=== PATIENT | female | born 1955 | race Caucasian/White ===

== ENCOUNTER 2018-07-01 14:39 | Inpatient (IN) | payer OTHER, MEDICARE ==
[2018-07-01 15:27] LABS: ABS Basophils 0.1 10^3/ul (0-0.2); ABS Eosinophils 0.3 10^3/ul (0-0.6); ABS Lymphocytes 1.5 10^3/ul (1.0-4.8); ABS Monocytes 0.6 10^3/ul (0-0.8); ABS Neutrophils 5.3 10^3/ul (1.5-7.7); ABS Nucleated RBC 0 10^3/ul; Eosinophil % 3.6 % (0-6); Hematocrit 39 % (35-47); Hemoglobin 13.1 g/dl (12.0-16.0); Lymphocyte % 19.3 % (25-47); Mean Corpuscular HGB Conc 34 g/dl (31-36); Mean Corpuscular Hemoglobin 30 pg (27-31); Mean Corpuscular Volume 89 fL (80-97); Mean Platelet Volume 7.9 um3 (7.4-10.4); Nucleated Red Blood Cells % 0; Platelet Count 443 10^3/ul (150-450); Red Blood Count 4.38 10^6/ul (4.00-5.40); Red Cell Distribution Width 15 % (10.5-15); White Blood Count 7.9 10^3/ul (3.5-10.8)
[2018-07-01] MEDS ORDERED: NS 0.9% 1000 ML* 2,000 ML IV ONE (16:01)
[2018-07-01 16:02] LABS: EGFR Non-African American 37.2 (>60)
[2018-07-01] MEDS ORDERED: Insulin REGULAR(*) 1 UNITS UNIT IV PUSH ONE (16:02)
[2018-07-01 16:34] LABS: Urine Appearance Clear; Urine Blood 1+ (Negative); Urine Color Straw; Urine Ketones Negative (Negative); Urine Protein Negative (Negative); Urine Red Blood Cell 1+(3-5/hpf) (Absent); Urine Specific Gravity 1.014 (1.010-1.030); Urine Urobilinogen Negative (Negative); Urine White Blood Cell 1+(6-10/hpf) (Absent)
--- NOTE | 2018-07-01 16:39 | ED ---
Abdominal Pain/Female - HPI Summary HPI Summary: This is dorotae Joo Daly documenting for attending Ermias Medina MD. This patient is a 63 year old F presenting to ED with a chief complaint of high glucose levels since yesterday. She forgot to take her insulin yesterday but took it today. She found her glucose to be over 600. The patient rates the pain 4/10 in severity. Symptoms aggravated by nothing. Symptoms alleviated by nothing. Patient reports dehydration and non-productive cough. Patient denies increased appetite, CP, SOB, diarrhea, and constipation. She also thinks she has a yeast infection. The patient takes Lantus (her doctor changed it from 100 units to 60) and 20 units humalog BID. She had a hysterectomy done in [place] and is on Keflex. - History of Current Complaint Chief Complaint: EDDiabeticProb Stated Complaint: HIGH SUGAR/DIZZINESS Time Seen by Provider: 07/01/18 15:37 Hx Obtained From: Patient Onset/Duration: Sudden Onset, Lasting Days, Still Present Timing: Constant Severity Initially: Moderate Severity Currently: Mild Pain Intensity: 4 Pain Scale Used: 0-10 Numeric Aggravating Factor(s): Nothing Alleviating Factor(s): Nothing Associated Signs and Symptoms: Positive: Negative - SOB, diarrhea, Cough - non- productive, Other: - dehydration. Negative: Chest Pain, Constipation, Decreased Appetite Allergies/Adverse Reactions: Allergies Allergy/AdvReac Type Severity Reaction Status Date / Time No Known Allergies Allergy Verified 11/11/15 13:31 PMH/Surg Hx/FS Hx/Imm Hx Endocrine/Hematology History: Reports: Hx Diabetes Denies: Hx Systemic Lupus Erythematosus, Hx Anemia Cardiovascular History: Reports: Hx Hypercholesterolemia, Hx Hypertension, Other Cardiovascular Problems/Disorders - hx stroke Denies: Hx Congestive Heart Failure, Hx Pacemaker/ICD Respiratory History: Reports: Hx Asthma, Hx Chronic Obstructive Pulmonary Disease (COPD), Hx Pneumonia, Other Respiratory Problems/Disorders - Hx of smoking GI History: Reports: Hx Gastroesophageal Reflux Disease Denies: Hx Jaundice History: Denies: Hx Dialysis, Hx Renal Disease Musculoskeletal History: Denies: Hx Rheumatoid Arthritis Sensory History: Reports: Hx Contacts or Glasses - glasses for driving Denies: Hx Hearing Aid Comment Only: 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 X 2 C SECTIONS; lower lumbar 2001 Hx Anesthesia Reactions: No Infectious Disease History: No Infectious Disease History: Reports: Hx of Known/Suspected MRSA Denies: Hx Clostridium Difficile, Hx Hepatitis, Hx Human Immunodeficiency Virus (HIV), Hx Shingles, Hx Tuberculosis, Hx Known/Suspected VRE, Hx Known/ Suspected VRSA, History Other Infectious Disease, Traveled Outside the [place] in Last 30 Days - Family History Known Family History: Positive: Other - reviewed and N/C Negative: Renal Disease - Social History Occupation: Employed Full-time Lives: With Family Alcohol Use: None Substance Use Type: Reports: None Smoking Status (MU): Former Smoker Type: Cigarettes Have You Smoked in the Last Year: No Review of Systems Positive: Other - Positive: dehydration Negative: increased appetite Negative: Chest Pain Positive: Cough - non-productive. Negative: Shortness Of Breath Negative: Diarrhea All Other Systems Reviewed And Are Negative: Yes Physical Exam - Summary Physical Exam Summary: VITAL SIGNS: Reviewed. GENERAL: Patient is a well-developed and nourished elderly female who is lying comfortable in the stretcher. Patient is not in any acute respiratory distress. HEAD AND FACE: Normocephalic and atraumatic. EYES: PERRLA, EOMI x 2, No injected conjunctiva. EARS: Hearing grossly intact. Ear canals and tympanic membranes are WNL. MOUTH: Oropharynx within normal limits. Dry oral mucosa NECK: Supple, trachea is midline, no adenopathy, no JVD. CHEST: Symmetric, no tenderness at palpation LUNGS: Clear to auscultation bilaterally. No wheezing or crackles. CVS: RRR, S1 and S2 present, no murmurs or gallops appreciated. ABDOMEN: Soft, non-tender. No signs of distention. Positive bowel sounds. No rebound no guarding, and no masses palpated. No abdominal bruit or pulsations. Has wound bag in lower abdomen. EXTREMITIES: FROM in all major joints, no edema, no cyanosis or clubbing. NEURO: Alert and oriented x 3. No acute neurological deficits. Speech is normal. SKIN: Increased turgor in skin Triage Information Reviewed: Yes Vital Signs On Initial Exam: Initial Vitals Temp Pulse Resp BP Pulse Ox 97.1 F 90 18 154/74 97 07/01/18 14:40 07/01/18 14:40 07/01/18 14:40 07/01/18 14:40 07/01/18 14:40 Vital Signs Reviewed: Yes Diagnostics - Vital Signs Vital Signs Temp Pulse Resp BP Pulse Ox 07/01/18 14:40 97.1 F 90 18 154/74 97 - Laboratory Lab Results: Lab Results 07/01/18 07/01/18 07/01/18 Range/Units 14:49 15:16 15:16 WBC 7.9 (3.5-10.8) 10^3/ul RBC 4.38 (4.00-5.40) 10^6/ul Hgb 13.1 (12.0-16.0) g/dl Hct 39 (35-47) % MCV 89 (80-97) fL MCH 30 (27-31) pg MCHC 34 (31-36) g/dl RDW 15 (10.5-15) % Plt Count 443 (150-450) 10^3/ul MPV 7.9 (7.4-10.4) um3 Neut % (Auto) 67.9 (38-83) % Lymph % (Auto) 19.3 L (25-47) % Cache % (Auto) 8.0 H (0-7) % Eos % (Auto) 3.6 (0-6) % Baso % (Auto) 1.2 (0-2) % Absolute Neuts (auto) 5.3 (1.5-7.7) 10^3/ul Absolute Lymphs (auto) 1.5 (1.0-4.8) 10^3/ul Absolute Monos (auto) 0.6 (0-0.8) 10^3/ul Absolute Eos (auto) 0.3 (0-0.6) 10^3/ul Absolute Basos (auto) 0.1 (0-0.2) 10^3/ul Absolute Nucleated RBC 0 10^3/ul Nucleated RBC % 0 Sodium 126 L (135-145) mmol/L Potassium 4.0 (3.5-5.0) mmol/L Chloride 87 L (101-111) mmol/L Carbon Dioxide 25 (22-32) mmol/L Anion Gap 14 H (2-11) mmol/L BUN 33 H (6-24) mg/dL Creatinine 1.43 H (0.51-0.95) mg/dL Est GFR ( Amer) 45.0 (>60) Est GFR (Non-Af Amer) 37.2 (>60) BUN/Creatinine Ratio 23.1 H (8-20) Glucose 621 H* (70-100) mg/dL POC Glucose (mg/dL) > 444 H* (70-100) mg/dL Lactic Acid (0.5-2.0) mmol/L Calcium 9.8 (8.6-10.3) mg/dL Total Bilirubin 2.40 H (0.2-1.0) mg/dL AST 14 (13-39) U/L ALT 13 (7-52) U/L Alkaline Phosphatase 172 H (34-104) U/L Troponin I 0.01 (<0.04) ng/mL C-Reactive Protein 89.84 H (<8.01) mg/L Total Protein 8.3 (6.4-8.9) g/dL Albumin 4.0 (3.2-5.2) g/dL Globulin 4.3 H (2-4) g/dL Albumin/Globulin Ratio 0.9 L (1-3) 07/01/18 Range/Units 15:16 WBC (3.5-10.8) 10^3/ul RBC (4.00-5.40) 10^6/ul Hgb (12.0-16.0) g/dl Hct (35-47) % MCV (80-97) fL MCH (27-31) pg MCHC (31-36) g/dl RDW (10.5-15) % Plt Count (150-450) 10^3/ul MPV (7.4-10.4) um3 Neut % (Auto) (38-83) % Lymph % (Auto) (25-47) % Cache % (Auto) (0-7) % Eos % (Auto) (0-6) % Baso % (Auto) (0-2) % Absolute Neuts (auto) (1.5-7.7) 10^3/ul Absolute Lymphs (auto) (1.0-4.8) 10^3/ul Absolute Monos (auto) (0-0.8) 10^3/ul Absolute Eos (auto) (0-0.6) 10^3/ul Absolute Basos (auto) (0-0.2) 10^3/ul Absolute Nucleated RBC 10^3/ul Nucleated RBC % Sodium (135-145) mmol/L Potassium (3.5-5.0) mmol/L Chloride (101-111) mmol/L Carbon Dioxide (22-32) mmol/L Anion Gap (2-11) mmol/L BUN (6-24) mg/dL Creatinine (0.51-0.95) mg/dL Est GFR ( Amer) (>60) Est GFR (Non-Af Amer) (>60) BUN/Creatinine Ratio (8-20) Glucose (70-100) mg/dL POC Glucose (mg/dL) (70-100) mg/dL Lactic Acid 2.4 H* (0.5-2.0) mmol/L Calcium (8.6-10.3) mg/dL Total Bilirubin (0.2-1.0) mg/dL AST (13-39) U/L ALT (7-52) U/L Alkaline Phosphatase (34-104) U/L Troponin I (<0.04) ng/mL C-Reactive Protein (<8.01) mg/L Total Protein (6.4-8.9) g/dL Albumin (3.2-5.2) g/dL Globulin (2-4) g/dL Albumin/Globulin Ratio (1-3) Result Diagrams: 07/01/18 15:16 07/01/18 15:16 Lab Statement: Any lab studies that have been ordered have been reviewed, and results considered in the medical decision making process. - EKG 1540 Cardiac Rate: NL - 87 bpm EKG Interpretation: Sinus [address] elevations. T wave inversions in I, II, III, aVF, V4-V6 Abdominal Pain Fem Course/Dx - Course Course Of Treatment: This patient is a 63 year old F presenting to ED with a chief complaint of high glucose levels since yesterday. She forgot to take her insulin yesterday but took it today. She found her glucose to be over 600. The patient rates the pain 4/10 in severity. Symptoms aggravated by nothing. Symptoms alleviated by nothing. Patient reports dehydration and non-productive cough. Patient denies increased appetite, CP, SOB, diarrhea, and constipation. She also thinks she has a yeast infection. The patient takes Lantus (her doctor changed it from 100 units to 60) and 20 units humalog BID. She had a hysterectomy done in [place] and is on Keflex. Blood test results shows a sodium 126, anion gap is 14 carbon dioxide is 25 by mouth in a steady 3 creatinine is 1.43. Glucose is 621 and lactic acid is 2.4. Total bili 2.4 CRP of 89, urinalysis is contaminated therefore we will send the urine for cultures. In the ER course the patient was given 2 L of IV fluids, insulin, and she was placed in an insulin drip. At this time I discussed my physical exam, findings and test results with Dr. Mack from the hospitalist services was accepted the patient for admission. The patient is hemodynamically stable alert and oriented 3. - Diagnoses Differential Diagnosis: Positive: Other - Hyperglycemia, DKA, hyperglycemic nonketotic osmolar syndrome, uncontrolled diabetes Provider Diagnoses: Type 2 diabetes mellitus with hyperosmolar nonketotic hyperglycemia Discharge - Sign-Out/Discharge Documenting (check all that apply): Patient Departure - Discharge Plan Condition: Stable Disposition: ADMITTED TO [facility] Referrals: Aki Briggs MD [Primary Care Provider] - - Billing Disposition and Condition Condition: STABLE Disposition: Admitted to [facility]
[2018-07-01] MEDS ORDERED: Insulin IVPB 100 units/100 ml 100 UNITS/100 ML UNIT IVPB ONE (17:12)
[2018-07-01] MEDS ORDERED: Al Hydrox/Mg Hydrox/Simet LIQ* 30 ML UDC PO PRN (18:34)
[2018-07-01] MEDS ORDERED: NS 0.9% 1000 ML* 1,000 ML IV SCH (18:45)
[2018-07-01] MEDS ORDERED: Mometasone/Formoter 100/5 MDI INH PRN (18:47)
[2018-07-01] MEDS ORDERED: Omeprazole CAP* 20 MG PO PRN (18:47)
[2018-07-01] MEDS ORDERED: Dextrose 50% Syringe 50 ML* 25 GM/50 ML SYRINGE IV PUSH PRN ×2 (18:49→18:57)
[2018-07-01] MEDS ORDERED: Insulin LISPRO* 1 UNITS UNIT SUBCUT SCH (21:00)
[2018-07-01 21:39] LABS: Urine Appearance Clear; Urine Blood Negative (Negative); Urine Color Yellow; Urine Ketones Negative (Negative); Urine Protein Negative (Negative); Urine Specific Gravity 1.014 (1.010-1.030); Urine Urobilinogen Negative (Negative)
[2018-07-01] MEDS: Ramipril CAP* 10 MG PO SCH (22:49)
[2018-07-01] MEDS: Docusate CAP* 100 MG PO SCH (22:49)
--- NOTE | 2018-07-01 22:50 | HP ---
ADMISSION HISTORY AND PHYSICAL: DATE OF ADMISSION: 07/01/18 CHIEF COMPLAINT: High blood sugars checked by visiting nurse. 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 She mentions that she was in her usual state of health until 2 days prior to admission when she started having some headaches and felt a bit nauseated. She mentions that about a week prior to admission, she has not been compliant with her fingerstick check and mention that she forgot her Lasix dose the night before. When her visiting nurse came, unfortunately her fingersticks were above the scale that can be read by the glucometer and given her other symptoms such as headache and nausea, she was advised to go to the ER for further evaluation, upon which she was found to have glucose of 621, but with an anion gap of 14. She was initially placed on insulin drip which was subsequently transitioned to subcu insulin upon hydration. She was also found to be mildly hyponatremic at 126. PAST MEDICAL AND SURGICAL HISTORY: 1. Diabetes mellitus. 2. CVA. 3. Hypertension. 4. COPD. 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 7. 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 8. Status post lumbar surgery. 9. x2. ALLERGIES: NKDA. FAMILY HISTORY: Reviewed. No family history of renal disease. SOCIAL HISTORY: The patient is a former smoker with a [id number] history. No alcohol, no recreational drug use. She is . Lives alone. 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 She is full code. REVIEW OF SYSTEMS: On review of systems, she complained of some intermittent headaches for the past 2 days, some nausea. Denied any fevers, chills, vomiting , abdominal pain, diarrhea, constipation, pain, and/or increased frequency on urination, myalgias, arthralgias, throat pain, or new skin lesions. The rest of the 14-point review of systems are otherwise unremarkable. PHYSICAL EXAMINATION GENERAL APPEARANCE: The patient is awake, alert, and oriented x3, not in acute distress, obese body habitus. VITAL SIGNS: Reveals the most recent vital signs of records with blood pressure of 135/67, saturating at 95% room air, 70 beats per minute heart rate, 97.1 degrees Fahrenheit temperature. HEENT: Normocephalic, atraumatic. PERRLA. Extraocular muscles intact. Negative for icterus. Moist oral mucosa. Negative throat erythema. CHEST: Clear to auscultation bilaterally. Good air entry. No wheezes, rales, and rhonchi. HEART: S1, S2, within normal limits. Regular rate and rhythm. No murmurs, rubs, and gallops. ABDOMEN: Soft, nondistended, nontender. Normoactive bowel sounds x4 quadrants. EXTREMITIES: No cyanosis, clubbing. Difficult to assess edema given obese body habitus. PSYCHIATRIC: No active psychosis, depression, suicidal, or homicidal ideation. SKIN: Warm to touch. LABORATORY DATA/DIAGNOSTIC STUDIES: Most recent and pertinent laboratories show normal CBC values with WBC, H and H, and platelets. Sodium of 126. BUN and creatinine seems to be at baseline from previous. An EKG with possible T- wave inversion in V5 to V6, although the patient does not complain of any chest pain nor shortness of breath. However, the patient has not been hospitalized in our facility for 3 years. ASSESSMENT AND PLAN: As follows: 1. Hyperglycemia. We will discontinue insulin drip and will place the patient on her regular insulin regimen with backup sliding scale as ordered. We will continue watchful waiting. We will check HbA1c in a.m. 2. Hyponatremia, likely secondary to mild hypovolemia. We will continue normal saline infusion and we will recheck sodium levels in a few hours at 2200. 3. Hypertension, well controlled. Continue Ramipril. 4. Abdominal post surgical wound, status post KIM-BSO. We will ask for wound care consult given the patient has wound VAC. 6. Possible T-wave inversion, unclear whether it is new or not. However, the patient does not complain of any chest pain or shortness of breath. We will trend cardiac enzymes. 7. DVT prophylaxis. We will place the patient on Lovenox. 8. Disposition. As above. 9. Urinalysis. The patient does not complain of any changes in urination, but we will ask nursing staff to do a straight cath and we will redraw urine. [id number]/[facility] #: [id number] GARRY
[2018-07-01] MEDS: Insulin GLARGINE(*) 1 UNITS UNIT SUBCUT SCH (23:20)
[2018-07-02] MEDS ORDERED: NS 0.9% 1000 ML* 1,000 ML IV SCH (01:18)
[2018-07-02] MEDS ORDERED: NS 0.9% 1000 ML* 1,000 ML IV ONE (01:19)
[2018-07-02] MEDS ORDERED: Insulin LISPRO* 1 UNITS UNIT SUBCUT ONE ×3 (01:20→20:58)
[2018-07-02] MEDS ORDERED: Dextrose 50% Syringe 50 ML* 25 GM/50 ML SYRINGE IV PUSH PRN ×3 (03:09→20:58)
[2018-07-02] MEDS ORDERED: Ondansetron INJ* 2 MG/ML VIAL IV ONE (03:28)
[2018-07-02] MEDS ORDERED: Insulin LISPRO* 1 UNITS UNIT SUBCUT SCH (07:30)
[2018-07-02 08:48] LABS: EGFR Non-African American 54.3 (>60)
[2018-07-02 09:02] LABS: ABS Basophils 0.1 10^3/ul (0-0.2); ABS Eosinophils 0.5 10^3/ul (0-0.6); ABS Lymphocytes 1.4 10^3/ul (1.0-4.8); ABS Monocytes 0.9 10^3/ul (0-0.8); ABS Neutrophils 4.7 10^3/ul (1.5-7.7); ABS Nucleated RBC 0 10^3/ul; Hematocrit 35 % (35-47); Hemoglobin 11.8 g/dl (12.0-16.0); Lymphocyte % 18.1 % (25-47); Mean Corpuscular HGB Conc 34 g/dl (31-36); Mean Corpuscular Hemoglobin 30 pg (27-31); Mean Corpuscular Volume 87 fL (80-97); Mean Platelet Volume 8.6 um3 (7.4-10.4); Nucleated Red Blood Cells % 0.1; Platelet Count 386 10^3/ul (150-450); Red Cell Distribution Width 15 % (10.5-15); White Blood Count 7.6 10^3/ul (3.5-10.8)
[2018-07-02] MEDS: Docusate CAP* 100 MG PO SCH ×2 (09:31→20:05)
[2018-07-02] MEDS: Aspirin EC TAB* 81 MG TAB.EC PO SCH (09:31)
[2018-07-02] MEDS: Insulin LISPRO* 1 UNITS UNIT SUBCUT SCH ×6 (09:32→17:42)
[2018-07-02] MEDS: Insulin GLARGINE(*) 1 UNITS UNIT SUBCUT SCH (09:33)
[2018-07-02] MEDS: Acetaminophen TAB* 325 MG PO PRN ×2 (11:18→20:04)
[2018-07-02] MEDS ORDERED: Insulin GLARGINE(*) 1 UNITS UNIT SUBCUT SCH (14:17)
[2018-07-02] MEDS ORDERED: Ondansetron INJ* 2 MG/ML VIAL IV PRN (14:30)
[2018-07-02] MEDS: Atorvastatin* 40 MG TAB PO SCH (17:43)
[2018-07-02] MEDS: Cephalexin CAP* 250 MG PO SCH ×2 (17:43→20:04)
--- NOTE | 2018-07-02 17:57 | RAD ---
INDICATION: Diarrhea and bilious vomiting COMPARISON: None TECHNIQUE: Supine and upright views of the abdomen were obtained. FINDINGS: The small bowel and colon appear nondistended. No free intraperitoneal air is seen. No grossly abnormal or pathologic appearing calcifications are noted. Visualized bones are within normal limits for the patient's age. IMPRESSION: Normal abdominal radiograph.
--- NOTE | 2018-07-02 18:00 | PN ---
Subjective Date of Service: 07/02/18 Interval History: Patient having F/C overnight and was having this at home before admission. Recently stopped keflex for post-op incision infection. Was on for 3 weeks. Recently had lantus decreased from 100u daily to 60u daily when seeing stock analyst. Had episode of diarrhea and bilious vomiting today which resolved with zofran. Has been feeling "foggy" mentally for several days which is improving. Persistent, stable pain at incision. Denies CP, SOB, Dysuria, dizziness, or other pain. Family History: Unchanged from Admission Social History: Unchanged from Admission Past Medical History: Unchanged from Admission Objective Active Medications: Acetaminophen (Tylenol Tab*) 650 mg PO Q6H PRN PRN Reason: PAIN Last Admin: 07/02/18 11:18 Dose: 650 mg Al Hydrox/Mg Hydrox/Simethicone (Maalox Plus*) 30 ml PO Q6H PRN PRN Reason: INDIGESTION Albuterol (Ventolin Hfa Inhaler*) 2 puff INH Q4H PRN PRN Reason: SHORTNESS OF BREATH Aspirin (Aspirin Ec Tab*) 81 mg PO DAILY [facility] Last Admin: 07/02/18 09:31 Dose: 81 mg Atorvastatin Calcium (Lipitor*) 40 mg PO 1700 [facility] Last Admin: 07/02/18 17:43 Dose: 40 mg Cephalexin HCl (Keflex Cap*) 250 mg PO QID [facility] Last Admin: 07/02/18 17:43 Dose: 250 mg Dextrose (D50w Syringe 50 Ml*) 12.5 gm IV PUSH .FOR FS < 60 - SS PRN PRN Reason: FS < 60 Docusate Sodium (Colace Cap*) 100 mg PO BID [facility] Last Admin: 07/02/18 09:31 Dose: 100 mg Doxycycline Hyclate (Vibramycin Cap(*)) 100 mg PO BID [facility] Sodium Chloride (Ns 0.9% 1000 Ml*) 1,000 mls @ 150 mls/hr IV PER RATE [facility] Last Admin: 07/02/18 15:06 Dose: 150 mls/hr Insulin Glargine (Lantus(*)) 30 units SUBCUT Q12H [facility] Last Admin: 07/02/18 15:03 Dose: 30 units Insulin Human Lispro (Humalog*) 0 units SUBCUT [facility]; Protocol Last Admin: 07/02/18 17:41 Dose: 12 units Insulin Human Lispro (Humalog*) 0 units SUBCUT AC [facility]; Protocol Last Admin: 07/02/18 17:42 Dose: 3 units Mometasone Furoate/Formoterol Fumar (Dulera 100/5 Mdi*) 2 puff INH BID PRN PRN Reason: SHORTNESS OF BREATH Omeprazole (Prilosec Cap*) 20 mg PO DAILY PRN PRN Reason: INDIGESTION Ondansetron HCl (Zofran Inj*) 4 mg IV Q6H PRN PRN Reason: NAUSEA Last Admin: 07/02/18 15:03 Dose: 4 mg Ramipril (Altace Cap*) 10 mg PO BEDTIME OF[facility] Last Admin: 07/01/18 22:49 Dose: 10 mg Vital Signs - 8 hr 07/02/18 07/02/18 11:27 15:13 Temperature 98.5 F 97.8 F Pulse Rate 85 84 Respiratory 16 20 Rate Blood Pressure 132/47 132/44 (mmHg) O2 Sat by Pulse 96 97 Oximetry Oxygen Devices in Use Now: None Appearance: Patient is an obese 63yo female who appears stated age and is sitting in the bed in [facility]. Eyes: No Scleral Icterus, PERRLA Ears/Nose/Mouth/Throat: NL Teeth, Lips, Gums, Clear Oropharnyx, Mucous Membranes Moist Neck: NL Appearance and Movements; NL JVP, Trachea Midline Respiratory: Symmetrical Chest Expansion and Respiratory Effort, Clear to Auscultation Cardiovascular: NL Sounds; No Murmurs; No JVD, RRR, No Edema Abdominal: NL Sounds; No Tenderness; No Distention, No Hepatosplenomegaly, - - Midline incision with small open area at the top with drainage and vound vac covering lower portion. Obese Lymphatic: No Cervical Adenopathy Extremities: No Edema, No Clubbing, Cyanosis Skin: No Rash or Ulcers, No Nodules or Sclerosis Neurological: Alert and Oriented x 3, NL Sensation, NL Muscle Strength and Tone , - - CN II-XII intact. Result Diagrams: 07/02/18 07:50 07/02/18 07:55 Additional Lab and Data: Lab Results Microbiology and Other Data: Microbiology 07/02/18 10:30 Skin and Soft Tissue MRSA/MSSA (PCR - Final Abdomen Mrsa Negative S.aureus Negative Gram Stain - Final 07/01/18 19:45 Nasal Screen MRSA (PCR) - Final Nasal Mrsa Not Detected Assess/Plan/Problems-Billing Assessment: Patient is a 63yo female with a PMH for DM II, COPD, HTN, here with HHS which is improving with insulin and fluids who is 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 - Patient Problems (1) Diabetes mellitus type 2 Current Visit: No Status: Chronic Priority: Medium Code(s): E11.9 - TYPE 2 DIABETES MELLITUS WITHOUT COMPLICATIONS SNOMED Code(s): 49364262 Comment: Increase insulin to 20u BID. This is the home dose according to patient. SSI as well. Patient had HHS and is being treated with aggressive fluids and insulin. Poor oral intake. Monitor for hypoglycemia. Follow with endocrinology outpatient. Hemogobin a1c 10.5. May be candidate for insulin pump. (2) Wound dehiscence Current Visit: Yes Status: Acute Code(s): T81.30XA - DISRUPTION OF WOUND, UNSPECIFIED, INITIAL ENCOUNTER SNOMED Code(s): 572451869 Comment: Abdominal surgery for removal of mullerian tumor. With wound vac and signs of infection. Abdominal XR shows no signs of SubQ air. No increased pain. Recently treated with keflex which was stopped soon before patient became symptomatic and had elevated blood sugars. Poor self care at home. Continue wound vac. Wound culture pending. Continue Doxycycline and Keflex. (3) CVA (cerebral vascular accident) Current Visit: No Status: Acute Priority: High Onset Date: 02/05/15 Code (s): I63.9 - CEREBRAL INFARCTION, UNSPECIFIED SNOMED Code(s): 516192463 Comment: Minor residual deficits. (4) Chronic obstructive lung disease Current Visit: No Status: Chronic Priority: Low Code(s): J44.9 - CHRONIC OBSTRUCTIVE PULMONARY DISEASE, UNSPECIFIED SNOMED Code(s): 61630721 Comment: Asymptomatic. Continue inhalers. (5) Essential hypertension Current Visit: No Status: Chronic Priority: Low Code(s): I10 - ESSENTIAL ( PRIMARY) HYPERTENSION SNOMED Code(s): 63295946 Comment: Normotensive. (6) Obesity Current Visit: No Status: Chronic Priority: Low Code(s): E66.9 - OBESITY, UNSPECIFIED SNOMED Code(s): 995592768 Comment: Cound be contributing to wound dehiscence risk and worsening diabetic control. Would recommend [facility] follow up with a goal of weight loss. (7) DVT prophylaxis Current Visit: No Status: Acute Priority: High Onset Date: 02/09/15 Code (s): VGB1732 - SNOMED Code(s): 613550098 Comment: SQ hep Status and Disposition: Inpatient.
[2018-07-02] MEDS: NS 0.9% 1000 ML* 1,000 ML IV SCH (19:00)
[2018-07-02] MEDS: DOXYcycline CAP(*) 100 MG PO SCH (20:05)
[2018-07-02] MEDS: Ramipril CAP* 10 MG PO SCH (20:05)
--- NOTE | 2018-07-02 20:59 | PN ---
Progress Note - Progress Note Date of Service: 07/02/18 Note: Patient continues to have elevated blood sugars. Will increase Lantus AM dose and give lispro now.
[2018-07-03] MEDS: Acetaminophen TAB* 325 MG PO PRN ×3 (03:24→18:11)
[2018-07-03 05:59] LABS: ABS Basophils 0.1 10^3/ul (0-0.2); ABS Eosinophils 0.6 10^3/ul (0-0.6); ABS Lymphocytes 1.5 10^3/ul (1.0-4.8); ABS Monocytes 0.8 10^3/ul (0-0.8); ABS Neutrophils 4.6 10^3/ul (1.5-7.7); ABS Nucleated RBC 0 10^3/ul; Eosinophil % 7.6 % (0-6); Hematocrit 34 % (35-47); Hemoglobin 11.6 g/dl (12.0-16.0); Lymphocyte % 19.8 % (25-47); Mean Corpuscular HGB Conc 34 g/dl (31-36); Mean Corpuscular Hemoglobin 30 pg (27-31); Mean Corpuscular Volume 88 fL (80-97); Nucleated Red Blood Cells % 0.1; Platelet Count 371 10^3/ul (150-450); Red Blood Count 3.93 10^6/ul (4.00-5.40); Red Cell Distribution Width 15 % (10.5-15); White Blood Count 7.6 10^3/ul (3.5-10.8)
[2018-07-03 06:15] LABS: EGFR Non-African American 60.3 (>60)
[2018-07-03] MEDS ORDERED: Insulin GLARGINE(*) 1 UNITS UNIT SUBCUT SCH (09:00)
[2018-07-03] MEDS: DOXYcycline CAP(*) 100 MG PO SCH ×2 (09:22→21:09)
[2018-07-03] MEDS: Aspirin EC TAB* 81 MG TAB.EC PO SCH (09:22)
[2018-07-03] MEDS: Cephalexin CAP* 250 MG PO SCH ×4 (09:22→21:09)
[2018-07-03] MEDS: Insulin LISPRO* 1 UNITS UNIT SUBCUT SCH ×6 (09:23→17:50)
[2018-07-03] MEDS: Insulin GLARGINE(*) 1 UNITS UNIT SUBCUT SCH ×2 (09:24→21:31)
[2018-07-03] MEDS: Docusate CAP* 100 MG PO SCH ×2 (09:45→21:10)
[2018-07-03] MEDS: NS 0.9% 1000 ML* 1,000 ML IV SCH ×2 (09:46→23:48)
--- NOTE | 2018-07-03 12:02 | RAD ---
CLINICAL HISTORY: R/O Abscess, status post hysterectomy COMPARISON: October 30, 2015 TECHNIQUE: Multiple contiguous axial CT scans were obtained of the abdomen and pelvis, without intravenous contrast enhancement. Coronal and sagittal multiplanar reformations are submitted for review. Oral contrast was not administered. FINDINGS: The study is limited by the lack of intravenous contrast. This limits evaluation of the solid organs and vasculature. Evaluation is also limited by the lack of oral contrast which limits the sensitivity for abscesses in the peritoneal cavity. LUNG BASES: There are small bilateral pleural effusions. LIVER: The liver is normal in shape, size, contour, and attenuation. BILE DUCTS: There is no intrahepatic or extrahepatic biliary dilatation. GALLBLADDER: The gallbladder is normal, without pericholecystic inflammatory change. PANCREAS: The pancreas is normal, without mass or ductal dilatation. SPLEEN: Normal in size and appearance. UPPER GI TRACT: Evaluation of the gastrointestinal tract is limited by incomplete gastric distention. The upper GI tract is unremarkable. SMALL BOWEL AND MESENTERY: The small bowel is normal in contour, course, and caliber. There is no obstruction or dilatation. COLON: The colon is normal in contour, course, caliber. There is no pericolonic inflammatory change. ADRENALS: Normal bilaterally. KIDNEYS: The kidneys are normal in shape, size, contour, and axis. There is no hydronephrosis or nephrolithiasis. BLADDER: The bladder is incompletely distended but is grossly normal. PELVIC ORGANS: The pelvic organs are not visualized. AORTA: There is calcific atherosclerotic disease of the abdominal aorta and its branches, without aneurysmal dilatation IVC: Unremarkable LYMPH NODES: There is no lymphadenopathy by size criteria. ABDOMINAL WALL: There is postsurgical change to the anterior abdominal wall, without loculated fluid collection. There is stranding of the subcutaneous fat along the anterior abdominal wall with gas along the surgical incision line. BONES AND SOFT TISSUES: Degenerative changes are noted most pronounced at L4-L5. OTHER: None IMPRESSION: 1. POSTSURGICAL CHANGE OF THE ANTERIOR ABDOMINAL WALL WITHOUT LOCULATED FLUID COLLECTION TO SUGGEST ABSCESS. 2. ATHEROSCLEROSIS. 3. SMALL BILATERAL PLEURAL EFFUSIONS.
--- NOTE | 2018-07-03 16:41 | PN ---
Subjective Date of Service: 07/03/18 Interval History: Patient fells much better today with more energy and less pain in abdomen. Denies CP, SOB, N/V, dysuria, F/C, dizziness on standing, palpitations, or other pain. States sister has been staying with her since she has had surgery and will able to be available after discharge. Family History: Unchanged from Admission Social History: Unchanged from Admission Past Medical History: Unchanged from Admission Objective Active Medications: Acetaminophen (Tylenol Tab*) 650 mg PO Q6H PRN PRN Reason: PAIN Last Admin: 07/03/18 09:36 Dose: 650 mg Al Hydrox/Mg Hydrox/Simethicone (Maalox Plus*) 30 ml PO Q6H PRN PRN Reason: INDIGESTION Albuterol (Ventolin Hfa Inhaler*) 2 puff INH Q4H PRN PRN Reason: SHORTNESS OF BREATH Aspirin (Aspirin Ec Tab*) 81 mg PO DAILY [facility] Last Admin: 07/03/18 09:22 Dose: 81 mg Atorvastatin Calcium (Lipitor*) 40 mg PO 1700 [facility] Last Admin: 07/02/18 17:43 Dose: 40 mg Cephalexin HCl (Keflex Cap*) 250 mg PO QID [facility] Last Admin: 07/03/18 13:48 Dose: 250 mg Dextrose (D50w Syringe 50 Ml*) 12.5 gm IV PUSH .FOR FS < 60 - SS PRN PRN Reason: FS < 60 Dextrose (D50w Syringe 50 Ml*) 12.5 gm IV PUSH .FOR FS < 60 - SS PRN PRN Reason: FS < 60 Docusate Sodium (Colace Cap*) 100 mg PO BID [facility] Last Admin: 07/03/18 09:45 Dose: Not Given Doxycycline Hyclate (Vibramycin Cap(*)) 100 mg PO BID [facility] Last Admin: 07/03/18 09:22 Dose: 100 mg Sodium Chloride (Ns 0.9% 1000 Ml*) 1,000 mls @ 75 mls/hr IV PER RATE [facility] Last Admin: 07/03/18 09:46 Dose: 75 mls/hr Insulin Glargine (Lantus(*)) 30 units SUBCUT Q12H [facility] Last Admin: 07/03/18 09:24 Dose: 30 units Insulin Human Lispro (Humalog*) 0 units SUBCUT [facility]; Protocol Last Admin: 07/03/18 13:41 Dose: 12 units Insulin Human Lispro (Humalog*) 0 units SUBCUT AC [facility]; Protocol Last Admin: 07/03/18 13:41 Dose: 2 units Mometasone Furoate/Formoterol Fumar (Dulera 100/5 Mdi*) 2 puff INH BID PRN PRN Reason: SHORTNESS OF BREATH Omeprazole (Prilosec Cap*) 20 mg PO DAILY PRN PRN Reason: INDIGESTION Ondansetron HCl (Zofran Inj*) 4 mg IV Q6H PRN PRN Reason: NAUSEA Last Admin: 07/02/18 15:03 Dose: 4 mg Ramipril (Altace Cap*) 10 mg PO BEDTIME [facility] Last Admin: 07/02/18 20:05 Dose: 10 mg Vital Signs - 8 hr 07/03/18 07/03/18 11:15 14:59 Temperature 98.2 F Pulse Rate 87 99 Respiratory 16 16 Rate Blood Pressure 135/78 136/81 (mmHg) O2 Sat by Pulse 96 97 Oximetry Oxygen Devices in Use Now: None Appearance: Patient is a 63yo female who appears stated age and is sitting in the bed in [facility]. Eyes: No Scleral Icterus, PERRLA Ears/Nose/Mouth/Throat: NL Teeth, Lips, Gums, Clear Oropharnyx, Mucous Membranes Moist Neck: NL Appearance and Movements; NL JVP, Trachea Midline Respiratory: Symmetrical Chest Expansion and Respiratory Effort, Clear to Auscultation Cardiovascular: NL Sounds; No Murmurs; No JVD, RRR, No Edema Abdominal: NL Sounds; No Tenderness; No Distention, No Hepatosplenomegaly Lymphatic: No Cervical Adenopathy Extremities: No Edema, No Clubbing, Cyanosis Skin: No Nodules or Sclerosis, - - Midline incision Neurological: Alert and Oriented x 3, NL Sensation, NL Muscle Strength and Tone , - - CN II-XII intact. 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 - Patient Problems (1) Diabetes mellitus type 2 Current Visit: No Status: Chronic Priority: Medium Code(s): E11.9 - TYPE 2 DIABETES MELLITUS WITHOUT COMPLICATIONS SNOMED Code(s): 12233720 Comment: Increase insulin to 30u BID. This is the home dose according to patient. SSI as well. Patient had HHS and is being treated with aggressive fluids and insulin. Poor oral intake. Monitor for hypoglycemia. Follow with endocrinology outpatient. Hemogobin a1c 10.5. May be candidate for insulin pump. (2) Wound dehiscence Current Visit: Yes Status: Acute Code(s): T81.30XA - DISRUPTION OF WOUND, UNSPECIFIED, INITIAL ENCOUNTER SNOMED Code(s): 523104055 Comment: Appreciate ID input. 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 With wound vac and signs of infection. Abdominal XR shows no signs of SubQ air. No increased pain. CT abdomen shows no abscess. Recently treated with keflex which was stopped soon before patient became symptomatic and had elevated blood sugars. Poor self care at home. Continue wound vac. Wound culture pending. Continue Doxycycline and Keflex. For staph and strep coverage. Follow with wound care outpatient. (3) CVA (cerebral vascular accident) Current Visit: No Status: Acute Priority: High Onset Date: 02/05/15 Code (s): I63.9 - CEREBRAL INFARCTION, UNSPECIFIED SNOMED Code(s): 951883549 Comment: Minor residual deficits. (4) Chronic obstructive lung disease Current Visit: No Status: Chronic Priority: Low Code(s): J44.9 - CHRONIC OBSTRUCTIVE PULMONARY DISEASE, UNSPECIFIED SNOMED Code(s): 12830197 Comment: Asymptomatic. Continue inhalers. (5) Essential hypertension Current Visit: No Status: Chronic Priority: Low Code(s): I10 - ESSENTIAL ( PRIMARY) HYPERTENSION SNOMED Code(s): 93028464 Comment: Normotensive. (6) Obesity Current Visit: No Status: Chronic Priority: Low Code(s): E66.9 - OBESITY, UNSPECIFIED SNOMED Code(s): 052865522 Comment: Cound be contributing to wound dehiscence risk and worsening diabetic control. Would recommend landscaping and groundskeeping laborer and PT follow up with a goal of weight loss. (7) DVT prophylaxis Current Visit: No Status: Acute Priority: High Onset Date: 02/09/15 Code (s): NFC3968 - SNOMED Code(s): 923300559 Comment: SQ hep Status and Disposition: Inpatient. Hopeful discharge tomorrow.
[2018-07-03] MEDS: Atorvastatin* 40 MG TAB PO SCH (17:50)
--- NOTE | 2018-07-03 20:33 | CONS ---
CONSULTATION REPORT: DATE OF CONSULT: 07/03/18 REQUESTING PROVIDER: ETHEL Joiner CONSULTING SERVICE: Infectious Disease. REASON FOR CONSULT: Abdominal wound. IMPRESSION: 1. Status post transabdominal hysterectomy and bilateral salpingo-oophorectomy early June 2018 with wound dehiscence which happened right off and had a VAC dressing and long course of cephalexin since that time. She is here now with hyperosmolar hyperglycemic state and concerned that that may have been triggered by underlying abdominal infection. There is a bloody purulent fluid draining through the VAC dressing. There is no surrounding cellulitis that could be a deeper collection under the fascia or the peritoneum. There is no feculent material coming through the VAC dressing. 2. Type 2 diabetes. 3. Obesity. 4. History of stroke. RECOMMENDATION: I agree with oral antibiotics, but would also obtain a CT scan to evaluate for deeper collection. If there is not, I think she can continue with wound care and we will consider having her follow up with the wound clinic. 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 About the time she got home, she started to have impressive amount of what sounds like serous drainage and the wound opened up. Her surgeon had coordinated a VAC dressing for her, which she started at home and has been doing for a couple of weeks. She was also placed on Keflex for about the last 3 weeks. She has had no fever, chills, or sweats. She says the visiting nurse reports the size of the wound is decreasing a little bit but still significant drainage. She has had nothing that looks like stool come through or around the dressing. Moving her bowels fine without abdominal pain. She is here now with a hyperglycemic state, which has been resolved with insulin and fluids. PAST MEDICAL HISTORY: 1. Type 2 diabetes. 2. History of stroke. 3. Hypertension. 4. COPD. 5. Status post KIM-BSO for Mullerian tumor. 6. Status post lumbar spine surgery. 7. Status post x2. MEDICATIONS: 1. Albuterol. 2. Aspirin. 3. Lipitor. 4. Cephalexin 4 times a day. 5. Doxycycline 100 mg twice a day. 6. Omeprazole. 7. Zofran. 8. Ramipril. ALLERGIES: No known drug allergies. FAMILY HISTORY: No recurrent infections. SOCIAL HISTORY: She lives in [place]. She is . She is on disability from [employer]. REVIEW OF SYSTEMS: All negative to a 14-point review of systems except as noted above in the history of present illness. PHYSICAL EXAM: Vital Signs: Temperature 36.4, heart rate 80, respiratory rate 16, blood pressure 142/50, oxygen saturation 95% on room air. In general, she is awake, not in distress. Neurologic: She is oriented x3, follows all commands. Moves all extremities. HEENT: There is no thrush. Neck is supple without mass. Lymph Nodes: There is no cervical, supraclavicular, inguinal, axillary, or epitrochlear lymphadenopathy. Heart has regular rate and rhythm without murmurs, rubs, or gallops. Lungs are clear to auscultation bilaterally. Abdomen is soft, nontender, nondistended. There are bowel sounds present. There is a midline, about 6-cm open wound with a VAC dressing. There is serosanguineous fluid in the drain. There is some bloody purulent-looking fluid coming around the dressing component. There is no surrounding erythema in the skin. LABORATORY DATA: Creatinine 0.9. CRP 33. White blood cell count 7, hemoglobin 11, platelets 371. Urinalysis shows leukocyte esterase and blood. Blood cultures are pending. A urine culture was negative. Culture taken of the wound yesterday showed gram-positive cocci, gram-positive bacilli, gram- negative bacilli in the Gram stain, the culture component is pending. Please see impressions and recommendations as outlined above, which I have discussed with ETHEL Joiner. Thanks for asking me to see Ms. Camp in consultation. [id number]/[facility] #: [id number] [facility] HEALTHTamara
[2018-07-03] MEDS ORDERED: Ketorolac INJ* 15 MG/ML 1 ML VIAL IV PUSH PRN (20:44)
[2018-07-03] MEDS: Ramipril CAP* 10 MG PO SCH (21:09)
[2018-07-03] MEDS: Albuterol HFA INHALER* 8 gm MDI INH PRN (21:48)
[2018-07-03] MEDS ORDERED: diPHENhydraMINE PO* 25 MG PO PRN (22:01)
[2018-07-04] MEDS: traMADol TAB* 50 MG PO PRN ×2 (00:54→20:44)
[2018-07-04 05:26] LABS: ABS Basophils 0.1 10^3/ul (0-0.2); ABS Eosinophils 0.6 10^3/ul (0-0.6); ABS Lymphocytes 1.4 10^3/ul (1.0-4.8); ABS Monocytes 0.7 10^3/ul (0-0.8); ABS Neutrophils 5.3 10^3/ul (1.5-7.7); ABS Nucleated RBC 0 10^3/ul; Eosinophil % 7.1 % (0-6); Hematocrit 35 % (35-47); Hemoglobin 11.8 g/dl (12.0-16.0); Lymphocyte % 17.5 % (25-47); Mean Corpuscular HGB Conc 34 g/dl (31-36); Mean Corpuscular Hemoglobin 29 pg (27-31); Mean Corpuscular Volume 88 fL (80-97); Mean Platelet Volume 7.7 um3 (7.4-10.4); Nucleated Red Blood Cells % 0.1; Platelet Count 389 10^3/ul (150-450); Red Blood Count 4.02 10^6/ul (4.00-5.40); Red Cell Distribution Width 15 % (10.5-15); White Blood Count 8.1 10^3/ul (3.5-10.8)
[2018-07-04 05:49] LABS: EGFR Non-African American 57.5 (>60)
[2018-07-04] MEDS ORDERED: Magnesium Sulfate 2 GM IV* 2 GM/50 ML BAG IVPB ONE (07:43)
[2018-07-04] MEDS: Aspirin EC TAB* 81 MG TAB.EC PO SCH (08:29)
[2018-07-04] MEDS: Cephalexin CAP* 250 MG PO SCH (08:29)
[2018-07-04] MEDS: Docusate CAP* 100 MG PO SCH ×2 (08:31→19:41)
[2018-07-04] MEDS: DOXYcycline CAP(*) 100 MG PO SCH (08:31)
[2018-07-04] MEDS: Insulin LISPRO* 1 UNITS UNIT SUBCUT SCH ×8 (09:23→18:03)
[2018-07-04] MEDS: Insulin GLARGINE(*) 1 UNITS UNIT SUBCUT SCH ×3 (09:24→20:43)
[2018-07-04] MEDS ORDERED: Dextrose 50% Syringe 50 ML* 25 GM/50 ML SYRINGE IV PUSH PRN (09:46)
[2018-07-04] MEDS ORDERED: Piperacillin/Tazobac ADVAN(*) 3.375 GM in NS 0.9% 100 ML* 100 ML IVPB ONE (13:50)
[2018-07-04] MEDS ORDERED: Zosyn per Pharmacy* NOTE FOLLOW UP SCH (14:00)
--- NOTE | 2018-07-04 17:28 | PN ---
Subjective Date of Service: 07/04/18 Interval History: Patient has increased drainage and worsening smell from abdominal wound. No increased pain. No subjective F/C. Discussed diabetes management with patient and she showed poor understanding of her disease. Discussed with the family and patient has been more defiant recently with regards to care and has been refusing help. 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 Family uncomfortable with going home. Family History: Unchanged from Admission Social History: Unchanged from Admission Past Medical History: Unchanged from Admission Objective Active Medications: Acetaminophen (Tylenol Tab*) 650 mg PO Q6H PRN PRN Reason: PAIN Last Admin: 07/03/18 18:11 Dose: 650 mg Al Hydrox/Mg Hydrox/Simethicone (Maalox Plus*) 30 ml PO Q6H PRN PRN Reason: INDIGESTION Albuterol (Ventolin Hfa Inhaler*) 2 puff INH Q4H PRN PRN Reason: SHORTNESS OF BREATH Last Admin: 07/03/18 21:48 Dose: 2 puff Aspirin (Aspirin Ec Tab*) 81 mg PO DAILY [facility] Last Admin: 07/04/18 08:29 Dose: 81 mg Atorvastatin Calcium (Lipitor*) 40 mg PO 1700 [facility] Last Admin: 07/03/18 17:50 Dose: 40 mg Dextrose (D50w Syringe 50 Ml*) 12.5 gm IV PUSH .FOR FS < 60 - SS PRN PRN Reason: FS < 60 Diphenhydramine HCl (Benadryl Po*) 25 mg PO Q4H PRN PRN Reason: RASH Docusate Sodium (Colace Cap*) 100 mg PO BID [facility] Last Admin: 07/04/18 08:31 Dose: Not Given Sodium Chloride (Ns 0.9% 1000 Ml*) 1,000 mls @ 75 mls/hr IV PER RATE [facility] Last Admin: 07/03/18 23:48 Dose: 75 mls/hr Piperacillin Sod/Tazobactam (Sod 3.375 gm/ Sodium Chloride) 100 mls @ 25 mls/ hr IVPB Q8H [facility] Insulin Glargine (Lantus(*)) 45 units SUBCUT Q12H [facility] Stop: 07/04/18 20:15 Last Admin: 07/04/18 09:24 Dose: 45 units Insulin Glargine (Lantus(*)) 60 units SUBCUT Q12H [facility] Insulin Human Lispro (Humalog*) 0 units SUBCUT AC [facility]; Protocol Last Admin: 07/04/18 12:48 Dose: 6 units Insulin Human Lispro (Humalog*) 0 units SUBCUT AC [facility]; Protocol Last Admin: 07/04/18 12:48 Dose: 2 units Insulin Human Lispro (Humalog*) 5 units SUBCUT AC [facility] Last Admin: 07/04/18 12:48 Dose: 5 units Mometasone Furoate/Formoterol Fumar (Dulera 100/5 Mdi*) 2 puff INH BID PRN PRN Reason: SHORTNESS OF BREATH Omeprazole (Prilosec Cap*) 20 mg PO DAILY PRN PRN Reason: INDIGESTION Ondansetron HCl (Zofran Inj*) 4 mg IV Q6H PRN PRN Reason: NAUSEA Last Admin: 07/02/18 15:03 Dose: 4 mg Pharmacy Consult (Zosyn Per Pharmacy*) 1 note FOLLOW UP .ZOSYN PER PHARMACY [facility] Ramipril (Altace Cap*) 10 mg PO BEDTIME [facility] Last Admin: 07/03/18 21:09 Dose: 10 mg Tramadol HCl (Ultram*) 50 mg PO Q6H PRN PRN Reason: PAIN Last Admin: 07/04/18 00:54 Dose: 50 mg Vital Signs - 8 hr 07/04/18 11:32 Temperature 98.2 F Pulse Rate 87 Respiratory 16 Rate Blood Pressure 147/55 (mmHg) O2 Sat by Pulse 97 Oximetry Oxygen Devices in Use Now: None Appearance: Patient is a 63yo female who appears stated age and is sitting in the bed in [facility]. Eyes: No Scleral Icterus, PERRLA Ears/Nose/Mouth/Throat: NL Teeth, Lips, Gums, Mucous Membranes Moist Neck: NL Appearance and Movements; NL JVP, Trachea Midline Respiratory: Symmetrical Chest Expansion and Respiratory Effort, Clear to Auscultation Cardiovascular: NL Sounds; No Murmurs; No JVD, RRR, - - 1+ B/L LE edema. Abdominal: No Hepatosplenomegaly, - - Abdominal wound with purulent drainage and worsening discharge and erythema. Significantly worsened from previous exam. Increased odor. Lymphatic: No Cervical Adenopathy Extremities: No Clubbing, Cyanosis Skin: No Nodules or Sclerosis Neurological: Alert and Oriented x 3, NL Sensation, NL Gait, NL Muscle Strength and Tone, - - CN II-XII intact. 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 - Patient Problems (1) Diabetes mellitus type 2 Current Visit: No Status: Chronic Priority: Medium Code(s): E11.9 - TYPE 2 DIABETES MELLITUS WITHOUT COMPLICATIONS SNOMED Code(s): 26600198 Comment: Increase insulin to 60u BID. This is the home dose according to patient. Was mistaken yesterday when saying was 30u BID. SSI and carb counting with standing 5u AC as well. Patient had HHS and is being treated with aggressive fluids and insulin. Follow with endocrinology outpatient. Hemogobin a1c 10.5. May be candidate for insulin pump. Dietary consult and education given about disease and strategy for control. (2) Wound dehiscence Current Visit: Yes Status: Acute Code(s): T81.30XA - DISRUPTION OF WOUND, UNSPECIFIED, INITIAL ENCOUNTER SNOMED Code(s): 762929662 Comment: Appreciate ID input and surgical/wound care input. 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 With wound vac and signs of infection. Worsening despite antibiotics. Abdominal XR shows no signs of SubQ air. No increased pain. CT abdomen shows no abscess. Recently treated with keflex which was stopped soon before patient became symptomatic and had elevated blood sugars. Poor self care at home. Continue wound vac. Wound culture shows Strep mitis and E coli. Sensitive to doxycycline. Change to Zosyn and await repeat wound culture. (3) CVA (cerebral vascular accident) Current Visit: No Status: Acute Priority: High Onset Date: 02/05/15 Code (s): I63.9 - CEREBRAL INFARCTION, UNSPECIFIED SNOMED Code(s): 975983990 Comment: Minor residual deficits. Personality change per family to be more combattive. (4) Chronic obstructive lung disease Current Visit: No Status: Chronic Priority: Low Code(s): J44.9 - CHRONIC OBSTRUCTIVE PULMONARY DISEASE, UNSPECIFIED SNOMED Code(s): 84344795 Comment: Asymptomatic. Continue inhalers. (5) Essential hypertension Current Visit: No Status: Chronic Priority: Low Code(s): I10 - ESSENTIAL ( PRIMARY) HYPERTENSION SNOMED Code(s): 01195603 Comment: Normotensive. (6) Obesity Current Visit: No Status: Chronic Priority: Low Code(s): E66.9 - OBESITY, UNSPECIFIED SNOMED Code(s): 529144521 Comment: Cound be contributing to wound dehiscence risk and worsening diabetic control. Would recommend records management technician and PT follow up with a goal of weight loss. (7) DVT prophylaxis Current Visit: No Status: Acute Priority: High Onset Date: 02/09/15 Code (s): [id number] - SNOMED Code(s): 268621453 Comment: SQ hep Status and Disposition: Inpatient. Will likely need rehab.
--- NOTE | 2018-07-04 17:33 | CONSULT ---
Consult Consult: Surgery Consult Asked to evaluate an abdominal wound on a pt. Ms. Camp is a 63 y.o. female who had TAHBSO ~1 month ago. 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 Since right after she went home there has been drainage. A VAC was in place since surgery apparently. She has been admitted with hyperglycemia and infection. This episode coincided with coming off antibiotics which she had been on since surgery. Resumption of abx helped resolve the hyperglycemia. Meanwhile the abdominal wound has been managed with a VAC and it was noted that today there was more drainage and new open areas along the incision. PMHx: CVA, DM, HTN, COPD, Boyle's palsy Meds: see med rec NKDA SH: former smoker PE: general: overweight female in NAD Vital Signs 07/03/18 07/03/18 07/03/18 19:29 20:00 21:51 Temperature 98.3 F Pulse Rate 92 98 Respiratory 20 20 Rate Blood Pressure 148/51 (mmHg) O2 Sat by Pulse 97 99 Oximetry 07/03/18 07/04/18 07/04/18 23:36 00:54 02:58 Temperature 98.7 F Pulse Rate 100 Respiratory 20 18 18 Rate Blood Pressure 149/43 (mmHg) O2 Sat by Pulse 93 Oximetry 07/04/18 07/04/18 07/04/18 03:11 07:26 07:38 Temperature 98.3 F 97.6 F Pulse Rate 102 99 Respiratory 20 16 16 Rate Blood Pressure 158/85 154/57 (mmHg) O2 Sat by Pulse 93 94 Oximetry 07/04/18 11:32 Temperature 98.2 F Pulse Rate 87 Respiratory 16 Rate Blood Pressure 147/55 (mmHg) O2 Sat by Pulse 97 Oximetry abd: obese, there is a midline incision which has a ~5x3x1 cm deep wound with granulation covered with slough in the inferior third of the incision; inferior to this is a small open area which when probed, tunnels to the larger area. In addition at the superior end of the scar is another small open area which also probes ~10 cm to the larger open area. The intervening skin forms a thin bridge which will likely break down in time. Laboratory Results - last 24 hr 07/03/18 07/04/18 07/04/18 21:09 05:06 05:06 WBC 8.1 RBC 4.02 Hgb 11.8 L Hct 35 MCV 88 MCH 29 MCHC 34 RDW 15 Plt Count 389 MPV 7.7 Neut % (Auto) 65.3 Lymph % (Auto) 17.[address] [place] % (Auto) 8.9 H Eos % (Auto) 7.1 H Baso % (Auto) 1.2 Absolute Neuts (auto) 5.3 Absolute Lymphs (auto) 1.4 Absolute Monos (auto) 0.7 Absolute Eos (auto) 0.6 Absolute Basos (auto) 0.1 Absolute Nucleated RBC 0 Nucleated RBC % 0.1 Sodium 133 L Potassium 4.1 Chloride 104 Carbon Dioxide 20 L Anion Gap 9 BUN 16 Creatinine 0.98 H Est GFR ( Amer) 69.6 Est GFR (Non-Af Amer) 57.5 BUN/Creatinine Ratio 16.3 Glucose 299 H POC Glucose (mg/dL) 280 H Calcium 8.8 Magnesium 1.8 L 07/04/18 07/04/18 07/04/18 07:15 11:32 16:16 WBC RBC Hgb Hct MCV MCH MCHC RDW Plt Count MPV Neut % (Auto) Lymph % (Auto) [place] % (Auto) Eos % (Auto) Baso % (Auto) Absolute Neuts (auto) Absolute Lymphs (auto) Absolute Monos (auto) Absolute Eos (auto) Absolute Basos (auto) Absolute Nucleated RBC Nucleated RBC % Sodium Potassium Chloride Carbon Dioxide Anion Gap BUN Creatinine Est GFR ( Amer) Est GFR (Non-Af Amer) BUN/Creatinine Ratio Glucose POC Glucose (mg/dL) 307 H 246 H 279 H Calcium Magnesium A/P: Open abdominal wound which has incompletely healed with the VAC. Will use aquacel rope through the tunnel and aquacel pad in the open wound; cover with dry gauze and abd pads which can be replaced as needed. Will follow. Thanks. Dank
[2018-07-04] MEDS: Atorvastatin* 40 MG TAB PO SCH (18:04)
[2018-07-04] MEDS: NS 0.9% 1000 ML* 1,000 ML IV SCH (18:04)
[2018-07-04] MEDS: ZOSYN 3.375 GM Q8H per EXTENDED INFUSION IVPB SCH ×2 (18:04)
[2018-07-04] MEDS: DOXYcycline IV* 100 MG in NS 0.9% 250 ML* 250 ML IVPB SCH (19:28)
[2018-07-04] MEDS: Ramipril CAP* 10 MG PO SCH (20:44)
[2018-07-04] MEDS: Albuterol HFA INHALER* 8 gm MDI INH PRN (22:29)
[2018-07-05] MEDS: ZOSYN 3.375 GM Q8H per EXTENDED INFUSION IVPB SCH ×6 (02:06→18:13)
[2018-07-05 05:09] LABS: ABS Basophils 0.1 10^3/ul (0-0.2); ABS Eosinophils 0.5 10^3/ul (0-0.6); ABS Lymphocytes 1.4 10^3/ul (1.0-4.8); ABS Monocytes 0.7 10^3/ul (0-0.8); ABS Neutrophils 5.2 10^3/ul (1.5-7.7); ABS Nucleated RBC 0 10^3/ul; Eosinophil % 6.4 % (0-6); Hematocrit 34 % (35-47); Hemoglobin 11.3 g/dl (12.0-16.0); Mean Corpuscular HGB Conc 34 g/dl (31-36); Mean Corpuscular Hemoglobin 29 pg (27-31); Mean Corpuscular Volume 87 fL (80-97); Mean Platelet Volume 7.7 um3 (7.4-10.4); Nucleated Red Blood Cells % 0; Platelet Count 402 10^3/ul (150-450); Red Blood Count 3.86 10^6/ul (4.00-5.40); Red Cell Distribution Width 16 % (10.5-15)
[2018-07-05 05:30] LABS: EGFR Non-African American 60.3 (>60)
[2018-07-05] MEDS: DOXYcycline IV* 100 MG in NS 0.9% 250 ML* 250 ML IVPB SCH ×2 (06:02→18:01)
[2018-07-05] MEDS: Acetaminophen TAB* 325 MG PO PRN ×2 (06:47→20:28)
[2018-07-05] MEDS: NS 0.9% 1000 ML* 1,000 ML IV SCH ×2 (09:01→22:54)
[2018-07-05] MEDS: Aspirin EC TAB* 81 MG TAB.EC PO SCH (09:03)
[2018-07-05] MEDS: Insulin LISPRO* 1 UNITS UNIT SUBCUT SCH ×9 (09:04→18:00)
[2018-07-05] MEDS: Insulin GLARGINE(*) 1 UNITS UNIT SUBCUT SCH ×2 (09:05→22:27)
[2018-07-05] MEDS: Docusate CAP* 100 MG PO SCH ×2 (09:06→22:26)
[2018-07-05] MEDS ORDERED: Insulin GLARGINE(*) 1 UNITS UNIT SUBCUT SCH (12:04)
--- NOTE | 2018-07-05 12:05 | PN ---
Subjective Date of Service: 07/05/18 Interval History: Mild pain. Eats OK. Some loose stools. Walks some. Family History: Unchanged from Admission Social History: Unchanged from Admission Past Medical History: Unchanged from Admission Objective Active Medications: Acetaminophen (Tylenol Tab*) 650 mg PO Q6H PRN PRN Reason: PAIN Last Admin: 07/05/18 06:47 Dose: 650 mg Al Hydrox/Mg Hydrox/Simethicone (Maalox Plus*) 30 ml PO Q6H PRN PRN Reason: INDIGESTION Albuterol (Ventolin Hfa Inhaler*) 2 puff INH Q4H PRN PRN Reason: SHORTNESS OF BREATH Last Admin: 07/04/18 22:29 Dose: 2 puff Aspirin (Aspirin Ec Tab*) 81 mg PO DAILY [facility] Last Admin: 07/05/18 09:03 Dose: 81 mg Atorvastatin Calcium (Lipitor*) 40 mg PO 1700 [facility] Last Admin: 07/04/18 18:04 Dose: 40 mg Dextrose (D50w Syringe 50 Ml*) 12.5 gm IV PUSH .FOR FS < 60 - SS PRN PRN Reason: FS < 60 Diphenhydramine HCl (Benadryl Po*) 25 mg PO Q4H PRN PRN Reason: RASH Docusate Sodium (Colace Cap*) 100 mg PO BID [facility] Last Admin: 07/05/18 09:06 Dose: Not Given Sodium Chloride (Ns 0.9% 1000 Ml*) 1,000 mls @ 75 mls/hr IV PER RATE [facility] Last Admin: 07/05/18 09:01 Dose: 75 mls/hr Piperacillin Sod/Tazobactam (Sod 3.375 gm/ Sodium Chloride) 100 mls @ 25 mls/ hr IVPB Q8H [facility] Last Admin: 07/05/18 09:01 Dose: 25 mls/hr Doxycycline Hyclate 100 mg/ (Sodium Chloride) 250 mls @ 250 mls/hr IVPB Q12H [facility] Last Admin: 07/05/18 06:02 Dose: 250 mls/hr Insulin Glargine (Lantus(*)) 60 units SUBCUT Q12H [facility] Last Admin: 07/05/18 09:05 Dose: 60 units Insulin Human Lispro (Humalog*) 0 units SUBCUT [facility]; Protocol Last Admin: 07/05/18 09:04 Dose: 3 units Insulin Human Lispro (Humalog*) 0 units SUBCUT AC [facility]; Protocol Last Admin: 07/05/18 09:04 Dose: 4 units Insulin Human Lispro (Humalog*) 5 units SUBCUT AC [facility] Last Admin: 07/05/18 09:05 Dose: 5 units Mometasone Furoate/Formoterol Fumar (Dulera 100/5 Mdi*) 2 puff INH BID PRN PRN Reason: SHORTNESS OF BREATH Omeprazole (Prilosec Cap*) 20 mg PO DAILY PRN PRN Reason: INDIGESTION Ondansetron HCl (Zofran Inj*) 4 mg IV Q6H PRN PRN Reason: NAUSEA Last Admin: 07/02/18 15:03 Dose: 4 mg Pharmacy Consult (Zosyn Per Pharmacy*) 1 note FOLLOW UP .ZOSYN PER PHARMACY [facility] Ramipril (Altace Cap*) 10 mg PO BEDTIME [facility] Last Admin: 07/04/18 20:44 Dose: 10 mg Tramadol HCl (Ultram*) 50 mg PO Q6H PRN PRN Reason: PAIN Last Admin: 07/04/18 20:44 Dose: 50 mg Vital Signs - 8 hr 07/05/18 07/05/18 07:27 07:41 Temperature 97.8 F Pulse Rate 87 Respiratory 20 18 Rate Blood Pressure 136/64 (mmHg) Oxygen Devices in Use Now: None Appearance: Alert, in a chair. In good spirits. Looks comfortable. Eyes: No Scleral Icterus Respiratory: Symmetrical Chest Expansion and Respiratory Effort, Clear to Auscultation, Clear to Percussion Cardiovascular: NL Sounds; No Murmurs; No JVD, RRR, No Edema, - Skin: No Rash or Ulcers, No Nodules or Sclerosis, - Neurological: Alert and Oriented x 3, NL Sensation Result Diagrams: 07/05/18 04:50 07/05/18 04:50 Additional Lab and Data: Lab Results Microbiology and Other Data: Microbiology 07/02/18 10:30 Skin and Soft Tissue MRSA/MSSA (PCR - Final Abdomen Mrsa Negative S.aureus Negative Gram Stain - Final 07/01/18 19:45 Nasal Screen MRSA (PCR) - Final Nasal Mrsa Not Detected Assess/Plan/Problems-Billing Assessment: Patient is a 63yo female with a PMH for DM II, COPD, HTN, here with HHS which is improving with insulin and fluids who is 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 - Patient Problems (1) Wound dehiscence Current Visit: Yes Status: Acute Code(s): T81.30XA - DISRUPTION OF WOUND, UNSPECIFIED, INITIAL ENCOUNTER SNOMED Code(s): 667797004 Comment: Appreciate ID input and surgical/wound care input. S/P abdominal surgery for removal of mullerian tumor. CT abdomen shows no abscess. Local tx per Dr. Daniel's note 07/04. Continue pip/maral and doxy. Wound culture shows Strep mitis and E coli. Sensitive to doxycycline. Change to Zosyn and await repeat wound culture. (2) Diabetes mellitus type 2 Current Visit: No Status: Chronic Priority: Medium Code(s): E11.9 - TYPE 2 DIABETES MELLITUS WITHOUT COMPLICATIONS SNOMED Code(s): 60685343 Comment: Increase insulin to 65 U BID start 8/ PM. SSI and carb counting plus standing 5u AC as well. Patient had HHS and is being treated with aggressive fluids and insulin. Follow with endocrinology outpatient. Hemogobin a1c 10.5. May be candidate for insulin pump. Dietary consult and education given about disease and strategy for control. (3) Morbid obesity Current Visit: Yes Status: Acute Code(s): E66.01 - MORBID (SEVERE) OBESITY DUE TO EXCESS CALORIES SNOMED Code(s): 971744891 Comment: BMI 43.0. (4) Anemia Current Visit: No Status: Acute Code(s): D64.9 - ANEMIA, UNSPECIFIED SNOMED Code(s): 728447178 Comment: Borderline and stable. (5) Chronic obstructive lung disease Current Visit: No Status: Chronic Priority: Low Code(s): J44.9 - CHRONIC OBSTRUCTIVE PULMONARY DISEASE, UNSPECIFIED SNOMED Code(s): 78398111 Comment: Asymptomatic. Continue mometasone/formoterol, PRN albuterol. Status and Disposition: Inpatient. Will likely need rehab.
[2018-07-05] MEDS: Atorvastatin* 40 MG TAB PO SCH (17:58)
[2018-07-05] MEDS: Ramipril CAP* 10 MG PO SCH (22:26)
[2018-07-06] MEDS: ZOSYN 3.375 GM Q8H per EXTENDED INFUSION IVPB SCH ×6 (03:19→18:37)
[2018-07-06] MEDS: DOXYcycline IV* 100 MG in NS 0.9% 250 ML* 250 ML IVPB SCH ×2 (05:55→17:23)
[2018-07-06] MEDS: Acetaminophen TAB* 325 MG PO PRN ×2 (07:39→13:45)
[2018-07-06] MEDS: Aspirin EC TAB* 81 MG TAB.EC PO SCH (09:03)
[2018-07-06] MEDS: Insulin LISPRO* 1 UNITS UNIT SUBCUT SCH ×9 (09:03→17:49)
[2018-07-06] MEDS: Insulin GLARGINE(*) 1 UNITS UNIT SUBCUT SCH ×2 (09:04→20:40)
[2018-07-06] MEDS: Docusate CAP* 100 MG PO SCH ×2 (09:04→20:17)
--- NOTE | 2018-07-06 11:15 | PN ---
Subjective Date of Service: 07/06/18 Interval History: Chills and sweats this AM, now feels OK. No bowel c/o. Little pain. Family History: Unchanged from Admission Social History: Unchanged from Admission Past Medical History: Unchanged from Admission Objective Active Medications: Acetaminophen (Tylenol Tab*) 650 mg PO Q6H PRN PRN Reason: PAIN Last Admin: 07/06/18 07:39 Dose: 650 mg Al Hydrox/Mg Hydrox/Simethicone (Maalox Plus*) 30 ml PO Q6H PRN PRN Reason: INDIGESTION Albuterol (Ventolin Hfa Inhaler*) 2 puff INH Q4H PRN PRN Reason: SHORTNESS OF BREATH Last Admin: 07/04/18 22:29 Dose: 2 puff Aspirin (Aspirin Ec Tab*) 81 mg PO DAILY [facility] Last Admin: 07/06/18 09:03 Dose: 81 mg Atorvastatin Calcium (Lipitor*) 40 mg PO 1700 [facility] Last Admin: 07/05/18 17:58 Dose: 40 mg Dextrose (D50w Syringe 50 Ml*) 12.5 gm IV PUSH .FOR FS < 60 - SS PRN PRN Reason: FS < 60 Diphenhydramine HCl (Benadryl Po*) 25 mg PO Q4H PRN PRN Reason: RASH Docusate Sodium (Colace Cap*) 100 mg PO BID [facility] Last Admin: 07/06/18 09:04 Dose: Not Given Sodium Chloride (Ns 0.9% 1000 Ml*) 1,000 mls @ 75 mls/hr IV PER RATE [facility] Last Admin: 07/05/18 22:54 Dose: 75 mls/hr Piperacillin Sod/Tazobactam (Sod 3.375 gm/ Sodium Chloride) 100 mls @ 25 mls/ hr IVPB Q8H [facility] Last Admin: 07/06/18 10:27 Dose: 25 mls/hr Doxycycline Hyclate 100 mg/ (Sodium Chloride) 250 mls @ 250 mls/hr IVPB Q12H [facility] Last Admin: 07/06/18 05:55 Dose: 250 mls/hr Insulin Glargine (Lantus(*)) 65 units SUBCUT Q12H [facility] Last Admin: 07/06/18 09:04 Dose: 65 units Insulin Human Lispro (Humalog*) 0 units SUBCUT AC [facility]; Protocol Last Admin: 07/06/18 09:03 Dose: 2 units Insulin Human Lispro (Humalog*) 0 units SUBCUT [facility]; Protocol Last Admin: 07/06/18 09:03 Dose: 4 units Insulin Human Lispro (Humalog*) 5 units SUBCUT [facility] Last Admin: 07/06/18 09:04 Dose: 5 units Mometasone Furoate/Formoterol Fumar (Dulera 100/5 Mdi*) 2 puff INH BID PRN PRN Reason: SHORTNESS OF BREATH Omeprazole (Prilosec Cap*) 20 mg PO DAILY PRN PRN Reason: INDIGESTION Ondansetron HCl (Zofran Inj*) 4 mg IV Q6H PRN PRN Reason: NAUSEA Last Admin: 07/02/18 15:03 Dose: 4 mg Pharmacy Consult (Zosyn Per Pharmacy*) 1 note FOLLOW UP .ZOSYN PER PHARMACY [facility] Ramipril (Altace Cap*) 10 mg PO BEDTIME [facility] Last Admin: 07/05/18 22:26 Dose: 10 mg Tramadol HCl (Ultram*) 50 mg PO Q6H PRN PRN Reason: PAIN Last Admin: 07/04/18 20:44 Dose: 50 mg Vital Signs - 8 hr 07/06/18 07/06/18 07/06/18 03:25 07:27 07:54 Temperature 98.1 F 102.0 F Pulse Rate 100 101 Respiratory 16 16 16 Rate Blood Pressure 155/76 137/54 (mmHg) O2 Sat by Pulse 98 95 Oximetry Oxygen Devices in Use Now: None Appearance: Alert, supine in bed. In good spirits. Looks comfortable. Eyes: No Scleral Icterus Abdominal: NL Sounds; No Tenderness; No Distention, No Hepatosplenomegaly, - - Open abd wound, minimal surrounding erythema, no drainage, base looks healthy. Extremities: No Edema, No Clubbing, Cyanosis, - Skin: No Rash or Ulcers, No Nodules or Sclerosis, - Neurological: Alert and Oriented x 3, NL Sensation Result Diagrams: 07/05/18 04:50 07/05/18 04:50 Additional Lab and Data: Lab Results Microbiology and Other Data: Microbiology 07/02/18 10:30 Skin and Soft Tissue MRSA/MSSA (PCR - Final Abdomen Mrsa Negative S.aureus Negative Gram Stain - Final 07/01/18 19:45 Nasal Screen MRSA (PCR) - Final Nasal Mrsa Not Detected Assess/Plan/Problems-Billing Assessment: Patient is a 63yo female with a PMH for DM II, COPD, HTN, here with HHS which is improving with insulin and fluids who is 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 - Patient Problems (1) Wound dehiscence Current Visit: Yes Status: Acute Code(s): T81.30XA - DISRUPTION OF WOUND, UNSPECIFIED, INITIAL ENCOUNTER SNOMED Code(s): 609440819 Comment: Appreciate ID input and surgical/wound care input. S/P abdominal surgery for removal of mullerian tumor. CT abdomen shows no abscess. Local tx per Dr. Daniel's note 07/04. Continue pip/maral and doxy. Wound culture shows Strep mitis and E coli. Sensitive to doxycycline. Change to Zosyn and await repeat wound culture. (2) Diabetes mellitus type 2 Current Visit: No Status: Chronic Priority: Medium Code(s): E11.9 - TYPE 2 DIABETES MELLITUS WITHOUT COMPLICATIONS SNOMED Code(s): 86724373 Comment: Continue Lantus 65 U BID started 8/4 PM. SSI and carb counting plus standing 5u AC as well. Needs endocrinology outpatient fup. Hemogobin a1c 10.5. Dietary consult and education given about disease and strategy for control. (3) Morbid obesity Current Visit: Yes Status: Acute Code(s): E66.01 - MORBID (SEVERE) OBESITY DUE TO EXCESS CALORIES SNOMED Code(s): 287588153 Comment: BMI 43.0. (4) Anemia Current Visit: No Status: Acute Code(s): D64.9 - ANEMIA, UNSPECIFIED SNOMED Code(s): 522430933 Comment: Borderline and stable. (5) Chronic obstructive lung disease Current Visit: No Status: Chronic Priority: Low Code(s): J44.9 - CHRONIC OBSTRUCTIVE PULMONARY DISEASE, UNSPECIFIED SNOMED Code(s): 98125439 Comment: Asymptomatic. Continue mometasone/formoterol, PRN albuterol. Status and Disposition: Inpatient. Will likely need rehab.
[2018-07-06] MEDS: HYDROcodone/ACETAMIN 5-325 MG* 1 TAB PO PRN (17:15)
[2018-07-06] MEDS: Atorvastatin* 40 MG TAB PO SCH (17:15)
[2018-07-06] MEDS: NS 0.9% 1000 ML* 1,000 ML IV SCH (18:37)
[2018-07-06] MEDS: Ramipril CAP* 10 MG PO SCH (20:40)
[2018-07-07] MEDS ORDERED: NS 0.9% 100 ML* 100 ML ONE (01:56)
[2018-07-07] MEDS: ZOSYN 3.375 GM Q8H per EXTENDED INFUSION IVPB SCH ×2 (02:00)
[2018-07-07] MEDS: NS 0.9% 1000 ML* 1,000 ML IV SCH ×2 (02:07→16:55)
[2018-07-07] MEDS: HYDROcodone/ACETAMIN 5-325 MG* 1 TAB PO PRN ×3 (03:42→21:08)
[2018-07-07] MEDS: DOXYcycline IV* 100 MG in NS 0.9% 250 ML* 250 ML IVPB SCH (06:17)
[2018-07-07] MEDS: Insulin LISPRO* 1 UNITS UNIT SUBCUT SCH ×8 (09:02→17:57)
[2018-07-07] MEDS: Docusate CAP* 100 MG PO SCH ×2 (09:03→21:10)
[2018-07-07] MEDS: Aspirin EC TAB* 81 MG TAB.EC PO SCH (09:39)
[2018-07-07] MEDS: Insulin GLARGINE(*) 1 UNITS UNIT SUBCUT SCH ×3 (09:45→21:02)
--- NOTE | 2018-07-07 15:12 | PN ---
Subjective Date of Service: 07/07/18 Interval History: Some loose stools, not too bad. No pain. Family History: Unchanged from Admission Social History: Unchanged from Admission Past Medical History: Unchanged from Admission Objective Active Medications: Hydrocodone Bitart/Acetaminophen ([place] 5-325 Tab*) 1 tab PO Q3H PRN PRN Reason: PAIN - MODERATE Last Admin: 07/07/18 03:42 Dose: 1 tab Al Hydrox/Mg Hydrox/Simethicone (Maalox Plus*) 30 ml PO Q6H PRN PRN Reason: INDIGESTION Albuterol (Ventolin Hfa Inhaler*) 2 puff INH Q4H PRN PRN Reason: SHORTNESS OF BREATH Last Admin: 07/04/18 22:29 Dose: 2 puff Aspirin (Aspirin Ec Tab*) 81 mg PO DAILY [facility] Last Admin: 07/07/18 09:39 Dose: 81 mg Atorvastatin Calcium (Lipitor*) 40 mg PO 1700 [facility] Last Admin: 07/06/18 17:15 Dose: 40 mg Dextrose (D50w Syringe 50 Ml*) 12.5 gm IV PUSH .FOR FS < 60 - SS PRN PRN Reason: FS < 60 Diphenhydramine HCl (Benadryl Po*) 25 mg PO Q4H PRN PRN Reason: RASH Docusate Sodium (Colace Cap*) 100 mg PO BID [facility] Last Admin: 07/07/18 09:03 Dose: Not Given Doxycycline Hyclate (Vibramycin Cap(*)) 100 mg PO BID [facility] Sodium Chloride (Ns 0.9% 1000 Ml*) 1,000 mls @ 75 mls/hr IV PER RATE [facility] Last Admin: 07/07/18 02:07 Dose: 75 mls/hr Insulin Glargine (Lantus(*)) 50 units SUBCUT Q12H [facility] Insulin Human Lispro (Humalog*) 0 units SUBCUT AC [facility]; Protocol Last Admin: 07/07/18 13:22 Dose: Not Given Insulin Human Lispro (Humalog*) 0 units SUBCUT AC [facility]; Protocol Last Admin: 07/07/18 13:36 Dose: 2 units Mometasone Furoate/Formoterol Fumar (Dulera 100/5 Mdi*) 2 puff INH BID PRN PRN Reason: SHORTNESS OF BREATH Omeprazole (Prilosec Cap*) 20 mg PO DAILY PRN PRN Reason: INDIGESTION Ondansetron HCl (Zofran Inj*) 4 mg IV Q6H PRN PRN Reason: NAUSEA Last Admin: 07/02/18 15:03 Dose: 4 mg Ramipril (Altace Cap*) 10 mg PO BEDTIME [facility] Last Admin: 07/06/18 20:40 Dose: 10 mg Vital Signs - 8 hr 07/07/18 07/07/18 07/07/18 07:41 08:00 11:21 Temperature 98.1 F 98.0 F Pulse Rate 85 99 Respiratory 20 20 16 Rate Blood Pressure 146/58 141/67 (mmHg) O2 Sat by Pulse 96 96 Oximetry Oxygen Devices in Use Now: None Appearance: Alert, in a chair. In good spirits. Looks comfortable. Extremities: No Edema, No Clubbing, Cyanosis, - Skin: No Rash or Ulcers, No Nodules or Sclerosis, - Neurological: Alert and Oriented x 3, NL Sensation Result Diagrams: 07/05/18 04:50 07/05/18 04:50 Additional Lab and Data: Lab Results Microbiology and Other Data: Microbiology 07/02/18 10:30 Skin and Soft Tissue MRSA/MSSA (PCR - Final Abdomen Mrsa Negative S.aureus Negative Gram Stain - Final 07/01/18 19:45 Nasal Screen MRSA (PCR) - Final Nasal Mrsa Not Detected Assess/Plan/Problems-Billing Assessment: Patient is a 63yo female with a PMH for DM II, COPD, HTN, here with HHS which is improving with insulin and fluids who is 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 - Patient Problems (1) Wound dehiscence Current Visit: Yes Status: Acute Code(s): T81.30XA - DISRUPTION OF WOUND, UNSPECIFIED, INITIAL ENCOUNTER SNOMED Code(s): 741590665 Comment: Appreciate ID input and surgical/wound care input. S/P KIM-BSO 06/08/[address] Carlton for removal of mullerian tumor. CT abdomen shows no abscess. Local tx per Dr. Daniel's note 07/04. Continue doxy. Wound culture shows Strep mitis and E coli. Sensitive to doxycycline. (2) Diabetes mellitus type 2 Current Visit: No Status: Chronic Priority: Medium Code(s): E11.9 - TYPE 2 DIABETES MELLITUS WITHOUT COMPLICATIONS SNOMED Code(s): 46283273 Comment: The post-op wound infection was largely responsible for her admission with diabetes out of control. Received Lantus 55 U AM 07/07, change to 50 U bid start 07/07 PM. SSI corrective and carb counting; stopped 5u AC on 07/07. Needs endocrinology outpatient fup. Hemogobin a1c 10.5. Dietary consult and education given about disease and strategy for control. (3) Morbid obesity Current Visit: Yes Status: Acute Code(s): E66.01 - MORBID (SEVERE) OBESITY DUE TO EXCESS CALORIES SNOMED Code(s): 858244156 Comment: BMI 43.0. (4) Anemia Current Visit: No Status: Acute Code(s): D64.9 - ANEMIA, UNSPECIFIED SNOMED Code(s): 881656569 Comment: Borderline and stable. (5) Chronic obstructive lung disease Current Visit: No Status: Chronic Priority: Low Code(s): J44.9 - CHRONIC OBSTRUCTIVE PULMONARY DISEASE, UNSPECIFIED SNOMED Code(s): 97176888 Comment: Asymptomatic. Continue mometasone/formoterol, PRN albuterol. (6) Debility Current Visit: Yes Status: Acute Code(s): R53.81 - OTHER MALAISE SNOMED Code(s): 90217522 Comment: Awaiting insurance auth for STR. Status and Disposition: Inpatient. Will likely need rehab.
--- NOTE | 2018-07-07 15:14 | PN ---
Progress Note - Progress Note Date of Service: 07/07/18 Note: Discussed with Dr. Martin. He will consult.
[2018-07-07] MEDS: Atorvastatin* 40 MG TAB PO SCH (16:54)
--- NOTE | 2018-07-07 20:45 | CONS ---
AMENDED REPORT NOW INCLUDES DATE OF CONSULT - ESIGNED BEFORE ADJUSTMENTS CC: Dr. Briggs * CONSULTATION REPORT: DATE OF CONSULT: 07/07/18 REASON FOR CONSULT: Uterine cancer. HISTORY OF PRESENT ILLNESS: Ms. Camp is a 63-year-old female, who developed vaginal bleeding approximately 2 months ago. She notes bleeding consistent to long period without menses. She called her doctor immediately and was seen for Pap smear. The patient reports the Pap smear showed malignancy and she was referred to [facility] in [place], where she subsequently underwent surgery with a total abdominal hysterectomy and bilateral salpingo-oophorectomy. I do not have details for initial workup or biopsies at this time. Surgery itself went well, but the day that she was scheduled to go home, she started to develop increased fluid drainage out of her incision. She was diagnosed with a postop wound infection and placed on a wound VAC at the time of discharge. She was at home and being cared for by visiting nurse service. The wound VAC was having continued drainage. For a week, prior to admission, she had increasing fingersticks and had difficult time managing her insulin. When VNS came on 07/01/18, fingersticks were measuring too high for the automated machine and she was sent to the emergency room. In the emergency room, her glucose was 621. Other labs included a sodium of 126, chloride of 87, and creatinine of 1.43 for a baseline of 0.98, bilirubin 2.4, alkaline phosphatase 172, C-reactive protein of 90. She does have a high baseline bilirubin. She was admitted, initially on the insulin drip , now on subcutaneous insulin. Dr. Daniel was consulted for the wound and it was found to be healed externally. Several areas of the wound were opened up and packed and are now draining appropriately. Her sugars have been improved since she came into the hospital but remained elevated around 350 to 400. Other than the vaginal bleeding, she had no other symptoms of cancer. Weight has been stable. Energy has been good. She had CT scan of the abdomen and pelvis on admission that showed wound infection without abscess, she is status post hysterectomy and oophorectomy, no retroperitoneal lymphadenopathy. Lung lesions are clear and non-contrast CT of the liver is unremarkable. PAST MEDICAL HISTORY: 1. History of uterine cancer as noted above. 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 2. Diabetes. 3. CVA, 2014, residual left-sided weakness. 4. Hypertension. 5. COPD. 6. History of acute renal failure, on hemodialysis, but subsequently recovered. Etiology of her renal failure is unclear. 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 9. Obese. PAST SURGICAL HISTORY: 1. KIM-BSO in June. 2. Lumbar disk surgery. 3. x2. GYNECOLOGIC HISTORY: G2, P2, and postmenopausal. MEDICATIONS: In the hospital, she is on: 1. [place] 5/325. 2. Albuterol inhaler. 3. Aspirin 81 a day. 4. Lipitor 40 a day. 5. Colace 100 b.i.d. 6. Doxycycline 100 b.i.d. 7. Insulin Lantus 50 units a day. 8. Humalog on a sliding scale. 9. Prilosec 20 a day. 10. Zofran p.r.n. 11. Ramipril 10 mg a day. ALLERGIES: None. FAMILY HISTORY: Father had cancer treated in our clinic. Mother had lung cancer and . She has 3 siblings, 1 sister is diabetic, had stroke and amputation. SOCIAL HISTORY: She has 2 sons, 42 and 38, and 4 grandchildren. 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 She smoked for the most of her life, but quit 6 years ago and she does not drink alcohol. REVIEW OF SYSTEMS: Blood sugars are getting better. Her abdominal pain is well controlled. She is moving her bowels well, urinating is not a problem. She has chronic COPD, but the breathing is adequate. She has no chest pain, palpitations. HEENT: Negative. She has no skin lesions other than the infection. PHYSICAL EXAM: Temperature 98.1, BP 141/68, pulse 85, respirations 24, and O2 sat 96%. HEENT: Mucosa moist. No lesions, no supraclavicular lymphadenopathy. Nodes: No inguinal or axillary lymphadenopathy. Lungs: Clear to auscultation. Good air movement. Heart: Distant S1, S2. Regular rhythm. No murmurs, rubs, or gallops. Abdomen: Good bowel sounds, nontender, nondistended. Midline incision open in 3 places. It is packed, mild erythema. Extremities: +1 edema bilaterally. LABORATORY DATA: She has hemoglobin of 11.3 with an MCV of 87, white count 8, platelets 402, normal differential. ASSESSMENT AND PLAN: A 63-year-old female recently diagnosed by her report with Mullerian tumor, stage I. Status post hysterectomy and bilateral salpingo - oophorectomy with a recommendation for postoperative radiation. Now admitted with wound infection and poorly controlled diabetes. 1. Blood sugars are improved and plan will be to transfer to [facility] for short- term rehab once insurance issues are worked out. 2. She will follow with Dr. Daniel in wound clinic and expect several weeks for full healing. 3. We will obtain complete records from her treatment at [place] including operative report and pathology as well as initial Pap smear and biopsy. 4. We will consult Dr. Medina to plan radiation therapy. Discussed that external beam radiation could be done in [place], she needs brachytherapy, we can coordinate that through [place], but may need to be done at an outside center. Certainly, oncologic followup post radiation can be done in [place]. 5. Anemia. Likely from inflammation. We will check iron studies and B12. 6. Will follow while she is in house and plan follow up in clinic on discharge. [id number]/[facility] #: [id number] GARRY
[2018-07-07] MEDS: Ramipril CAP* 10 MG PO SCH (21:02)
[2018-07-07] MEDS: DOXYcycline CAP(*) 100 MG PO SCH (21:02)
[2018-07-08] MEDS: NS 0.9% 1000 ML* 1,000 ML IV SCH ×2 (06:14→19:20)
[2018-07-08] MEDS: Insulin LISPRO* 1 UNITS UNIT SUBCUT SCH ×6 (09:25→18:15)
[2018-07-08] MEDS: Aspirin EC TAB* 81 MG TAB.EC PO SCH (09:37)
[2018-07-08] MEDS: DOXYcycline CAP(*) 100 MG PO SCH ×2 (09:38→20:57)
[2018-07-08] MEDS: Insulin GLARGINE(*) 1 UNITS UNIT SUBCUT SCH ×2 (09:38→20:56)
[2018-07-08] MEDS: Docusate CAP* 100 MG PO SCH ×2 (09:45→20:58)
[2018-07-08] MEDS: HYDROcodone/ACETAMIN 5-325 MG* 1 TAB PO PRN ×2 (12:25→15:42)
--- NOTE | 2018-07-08 16:16 | PN ---
Subjective Date of Service: 07/08/18 Interval History: Pt seen and examined. Meds and labs reviewed. ROS: Denied CHAMBERS/dizziness, F/C, N/V, CP, SOB, increased cough, sputum production , abd pain, diarrhea, constipation, dysuria, myalgias, arthralgias, throat pain , and new skin lesions. The rest of the 14 point ROS are unremarkable. PHYSICAL EXAM: GEN APPEARANCE: Awake, not in acute distress HEENT: NC/AT, PERRLA, moist oral mucosa, (-) throat erythema NECK: Soft, supple, (-) cervical LAD, (-)JVD HEART: S1S2 WNL, RRR, No MRG CHEST: CTA, BL, GAE, No W/R/R ABD: Soft, ND/NT, NABS 4x Q EXT: No C/C/E SKIN: Warm to touch PSYCH: No active psychosis, hallucinations, depression, SI/HI Family History: Unchanged from Admission Social History: Unchanged from Admission Past Medical History: Unchanged from Admission Objective Active Medications: Hydrocodone Bitart/Acetaminophen ([place] 5-325 Tab*) 1 tab PO Q3H PRN PRN Reason: PAIN - MODERATE Last Admin: 07/08/18 15:42 Dose: 1 tab Al Hydrox/Mg Hydrox/Simethicone (Maalox Plus*) 30 ml PO Q6H PRN PRN Reason: INDIGESTION Albuterol (Ventolin Hfa Inhaler*) 2 puff INH Q4H PRN PRN Reason: SHORTNESS OF BREATH Last Admin: 07/04/18 22:29 Dose: 2 puff Aspirin (Aspirin Ec Tab*) 81 mg PO DAILY [facility] Last Admin: 07/08/18 09:37 Dose: 81 mg Atorvastatin Calcium (Lipitor*) 40 mg PO 1700 [facility] Last Admin: 07/07/18 16:54 Dose: 40 mg Dextrose (D50w Syringe 50 Ml*) 12.5 gm IV PUSH .FOR FS < 60 - SS PRN PRN Reason: FS < 60 Diphenhydramine HCl (Benadryl Po*) 25 mg PO Q4H PRN PRN Reason: RASH Docusate Sodium (Colace Cap*) 100 mg PO BID [facility] Last Admin: 07/08/18 09:45 Dose: Not Given Doxycycline Hyclate (Vibramycin Cap(*)) 100 mg PO BID [facility] Last Admin: 07/08/18 09:38 Dose: 100 mg Sodium Chloride (Ns 0.9% 1000 Ml*) 1,000 mls @ 75 mls/hr IV PER RATE [facility] Last Admin: 07/08/18 06:14 Dose: 75 mls/hr Insulin Glargine (Lantus(*)) 50 units SUBCUT Q12H [facility] Last Admin: 07/08/18 09:38 Dose: 50 unit Insulin Human Lispro (Humalog*) 0 units SUBCUT [facility]; Protocol Last Admin: 07/08/18 13:24 Dose: 3 units Insulin Human Lispro (Humalog*) 0 units SUBCUT AC [facility]; Protocol Last Admin: 07/08/18 13:25 Dose: 5 units Mometasone Furoate/Formoterol Fumar (Dulera 100/5 Mdi*) 2 puff INH BID PRN PRN Reason: SHORTNESS OF BREATH Omeprazole (Prilosec Cap*) 20 mg PO DAILY PRN PRN Reason: INDIGESTION Ondansetron HCl (Zofran Inj*) 4 mg IV Q6H PRN PRN Reason: NAUSEA Last Admin: 07/02/18 15:03 Dose: 4 mg Ramipril (Altace Cap*) 10 mg PO BEDTIME [facility] Last Admin: 07/07/18 21:02 Dose: 10 mg Vital Signs - 8 hr 07/08/18 07/08/18 07/08/18 11:31 12:25 15:12 Temperature 97.2 F 98.1 F Pulse Rate 100 92 Respiratory 16 16 20 Rate Blood Pressure 146/74 141/53 (mmHg) O2 Sat by Pulse 96 96 Oximetry 07/08/18 07/08/18 15:28 15:42 Temperature Pulse Rate Respiratory 16 16 Rate Blood Pressure (mmHg) O2 Sat by Pulse Oximetry Oxygen Devices in Use Now: None Result Diagrams: 07/05/18 04:50 07/05/18 04:50 Additional Lab and Data: Lab Results Microbiology and Other Data: Microbiology 07/02/18 10:30 Skin and Soft Tissue MRSA/MSSA (PCR - Final Abdomen Mrsa Negative S.aureus Negative Gram Stain - Final 07/01/18 19:45 Nasal Screen MRSA (PCR) - Final Nasal Mrsa Not Detected Assess/Plan/Problems-Billing Assessment: Patient is a 63yo female with a PMH for DM II, COPD, HTN, here with [facility] which is improving with insulin and fluids who is 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 - Patient Problems (1) Wound dehiscence Current Visit: Yes Status: Acute Code(s): T81.30XA - DISRUPTION OF WOUND, UNSPECIFIED, INITIAL ENCOUNTER SNOMED Code(s): 552238198 Comment: -Appreciate ID input and surgical/wound care input. -S/P KIM-BSO 06/08/[address] Carlton for removal of mullerian tumor. -CT abdomen shows no abscess. Local tx per Dr. Daniel's note 07/04. -Continue doxywill clarify duration with Dr. Funk -Wound culture shows Strep mitis and E coli. Sensitive to doxycycline. (2) Diabetes mellitus type 2 Current Visit: No Status: Chronic Priority: Medium Code(s): E11.9 - TYPE 2 DIABETES MELLITUS WITHOUT COMPLICATIONS SNOMED Code(s): 62149802 Comment: -Continue Glargine and Lispro as ordered -Improved control---continue watchful waiting -SSI corrective and carb counting; stopped 5u AC on 07/07. -Needs endocrinology outpatient fup. Hemogobin a1c 10.5. -Dietary consult and education given about disease and strategy for control. (3) Morbid obesity Current Visit: Yes Status: Acute Code(s): E66.01 - MORBID (SEVERE) OBESITY DUE TO EXCESS CALORIES SNOMED Code(s): 079928494 Comment: -BMI 43.0. -Advised lifestyle modifications (4) COPD (chronic obstructive pulmonary disease) Current Visit: Yes Status: Acute Code(s): J44.9 - CHRONIC OBSTRUCTIVE PULMONARY DISEASE, UNSPECIFIED SNOMED Code(s): 13625276 Comment: -Asymptomatic. Continue mometasone/formoterol, PRN albuterol. (5) DVT prophylaxis Current Visit: Yes Status: Acute Code(s): VSB0486 - SNOMED Code(s): 894452778 Comment: -Will place pt on SCDs Status and Disposition: -For D/C to [facility] [place] in AM
[2018-07-08] MEDS: Atorvastatin* 40 MG TAB PO SCH (18:15)
[2018-07-08] MEDS: Ramipril CAP* 10 MG PO SCH (20:57)
[2018-07-09] MEDS: HYDROcodone/ACETAMIN 5-325 MG* 1 TAB PO PRN (08:18)
[2018-07-09] MEDS: NS 0.9% 1000 ML* 1,000 ML IV SCH (08:55)
[2018-07-09] MEDS: Insulin LISPRO* 1 UNITS UNIT SUBCUT SCH ×4 (09:07→13:31)
[2018-07-09] MEDS: Docusate CAP* 100 MG PO SCH (09:09)
[2018-07-09] MEDS: DOXYcycline CAP(*) 100 MG PO SCH (09:18)
[2018-07-09] MEDS: Insulin GLARGINE(*) 1 UNITS UNIT SUBCUT SCH (09:18)
[2018-07-09] MEDS: Aspirin EC TAB* 81 MG TAB.EC PO SCH (09:20)
[2018-07-09 12:20] VITALS: BP 151/77
--- NOTE | 2018-07-09 14:39 | DS ---
CC: Dr. Ermias Medina; Dr. Santiago Funk; Dr. Dana Daniel; Dr. Gustabo Martin; Dr. Aki Briggs. DISCHARGE SUMMARY: DATE OF ADMISSION: DATE OF DISCHARGE: 07/09/18 DISCHARGE DIAGNOSES: As follows: 1. Abdominal wound dehiscence, status post wound VAC removal by Dr. Daniel on 07/01/18. 2. History of Mullerian tumor stage I, status post hysterectomy-BSO, for followup with Dr. Medina for possible external beam radiation and brachytherapy as an outpatient. 3. Diabetes mellitus, improved control. 4. History of morbid obesity. 5. History of chronic obstructive pulmonary disease. DISCHARGE MEDICATIONS: As follows: 1. Albuterol HFA 2 puffs inhalation q.4 p.r.n. 2. Aspirin 81 mg p.o. daily. 3. Atorvastatin 40 mg p.o. daily. 4. Diphenhydramine 25 mg p.o. q.4 hours p.r.n. for 14 days. 5. Colace 100 mg p.o. b.i.d. 6. Doxycycline 100 mg p.o. b.i.d. for 12 more days. 7. Hydrocodone/acetaminophen 1 tab p.o. q.6 p.r.n. 8. Insulin glargine 60 units subcu q.a.m. and 40 units subcu q.p.m. 9. Insulin lispro q.a.c. 1 unit insulin lispro for every 12 g of carbohydrate. 10. Dulera 100/5 MDI 2 puffs inhalation b.i.d. 11. Omeprazole 20 mg p.o. daily. 12. Ramipril 10 mg p.o. at bedtime. 13. Floranex 2 tablets p.o. daily for 15 days. HISTORY OF PRESENT ILLNESS/HOSPITAL COURSE: The patient is a 63-year-old lady with a history of diabetes mellitus, CVA, and hypertension who mentioned that she had a recent KIM-BSO secondary to Mullerian tumor stage I, done 3 weeks prior to admission in [facility] and has since then had a wound VAC in her surgical wound that has been placed. She was in her usual state of health until 2 days prior to admission when she started having some headaches and felt a bit nauseated. When her visiting nurse came, her finger sticks were above the scale that can by read by the glucometer and given her symptoms of headache and nausea, she was advised to be evaluated in the ER where it is found that her glucose was around 621 with an anion gap of 14. She was initially placed on an insulin drip which was subsequently transitioned to subcu insulin upon hydration from the ED given her gap is relatively normal. During her workup she was also seen by Dr. Daniel who removed her wound VAC on 07/01/18 and addition to using Aquacel rope to the tunnel and Aquacel pad in the wound; to cover with dry gauze and abdominal pads which can be replaced as needed. I have also touch base with Dr. Daniel who will follow the patient in her clinic and her next followup should be within 1 week post discharge from our facility. She was also seen by Dr. Martin given her Mullerian stage I as discussed status post KIM-BSO and he discussed her case with Dr. Medina for plan for external beam radiation and brachytherapy. I have touched base with Dr. Martin's office and agreed that this can be done as an outpatient. The patient has been given the number for Dr. Medina's office to schedule an appointment and/or the facilitators at [facility] to do so. Prior to her discharge, her fingersticks reveal a pattern where the morning blood sugar is usually in the 70s to 80s but later on during the day and at night it is around 200 or so. Her long-acting insulin therefore was adjusted to 60 units q.a.m. and 40 units q.p.m. given this data and she will be further titrated by practitioners at [facility]. In addition, she was given a premeal insulin carb counting ratio of 1 unit is to 12 g of carbohydrates. She had been advised to follow up and or call her PCP/facility MD within 3 days post discharge. To follow up/call Dr. Martin's office within 3 days post discharge, and to call the #[phone]. She was advised to call Dr. Medina's office, her radiation oncologist to discuss possible plan for radiotherapy with brachytherapy. His number is [phone]. She was also advised to follow up with Dr. Daniel within 1 week post discharge and to call [phone] to set up an appointment. She was advised to call my office regarding any questions, concerns, or further clarifications regarding her discharge plans and/or prescriptions and we will defer with practitioners at [facility] to make sure that she follows above appointments. She was also advised to take her medications as prescribed. REVIEW OF SYSTEMS: The patient denied any recent headache, dizziness, fevers, chills, nausea, vomiting, chest pain, shortness of breath, increased cough, sputum production, abdominal pain, diarrhea, constipation, pain and/or increased frequency in urination, myalgias, arthralgias, throat pain, or new skin lesions. The rest of the 14-point review of systems are otherwise unremarkable. PHYSICAL EXAMINATION: Reveals a most recent vital signs of records with blood pressure of 153/89 with heart rate of 76 beats per minute, 98.3 degrees Fahrenheit, 16 per minute respiratory rate, saturating at 97% on room air. General Appearance: The patient is awake, alert, and oriented x3; not in acute distress. HEENT: Normocephalic and atraumatic, PERRLA, extraocular movements intact. Negative for icterus. Moist oral mucosa. Negative throat erythema. Neck: Soft, supple with no cervical lymphadenopathy, no JVD. Heart: S1 and S2 within normal limits. Regular, rate, and rhythm. No murmurs, rubs, or gallops. Chest: Clear to auscultation bilaterally. Good air entry. No wheezes, rales, or rhonchi. Abdomen: Soft, nondistended, and nontender. Normoactive bowel sounds x4 quadrants. Extremities: No cyanosis, clubbing, or edema. Psychiatric: No active psychosis, depression, suicidal or homicidal ideation. Skin is warm to touch. TIME SPENT: The total time spent evaluating the patient, reviewing pertinent data, and appropriate documentation is greater than 30 minutes. [id number]/[facility] #: [id number] MTDD
[2018-07-09] MEDS ORDERED: Insulin GLARGINE(*) 1 UNITS UNIT SUBCUT SCH (18:00)
[2018-07-10] MEDS ORDERED: Insulin GLARGINE(*) 1 UNITS UNIT SUBCUT SCH (09:00)
== END 2018-07-09 14:15 | DRG 862 ==
LOC: ED 14:39 → MEDTELE 18:34
PROVIDERS: ADMIT Student in an Organized Health Care Education/Training Program; ATTEND Student in an Organized Health Care Education/Training Program
DX: T81.4XXA Infection following a procedure, initial encounter (principal); E11.00 Type 2 diabetes mellitus with hyperosmolarity without nonketotic hyperglycemic-hyperosmolar coma (NKHHC); E87.1 Hypo-osmolality and hyponatremia; Z68.41 Body mass index [BMI] 40.0-44.9, adult; T81.31XA Disruption of external operation (surgical) wound, not elsewhere classified, initial encounter; E78.00 Pure hypercholesterolemia, unspecified; I10 Essential (primary) hypertension; J44.9 Chronic obstructive pulmonary disease, unspecified; K21.9 Gastro-esophageal reflux disease without esophagitis; H54.62 Unqualified visual loss, left eye, normal vision right eye; G51.0 Bell's palsy; B95.4 Other streptococcus as the cause of diseases classified elsewhere; B96.20 Unspecified Escherichia coli [E. coli] as the cause of diseases classified elsewhere; D64.9 Anemia, unspecified; Y76.3 Surgical instruments, materials and obstetric and gynecological devices (including sutures) associated with adverse incidents; H49.02 Third [oculomotor] nerve palsy, left eye; E66.01 Morbid (severe) obesity due to excess calories; Z86.14 Personal history of Methicillin resistant Staphylococcus aureus infection; Z87.891 Personal history of nicotine dependence; Z90.710 Acquired absence of both cervix and uterus; Z86.73 Personal history of transient ischemic attack (TIA), and cerebral infarction without residual deficits; Z87.01 Personal history of pneumonia (recurrent); Z85.42 Personal history of malignant neoplasm of other parts of uterus; Z90.722 Acquired absence of ovaries, bilateral; Z83.3 Family history of diabetes mellitus; Y92.009 Unspecified place in unspecified non-institutional (private) residence as the place of occurrence of the external cause; Z82.3 Family history of stroke; Z79.82 Long term (current) use of aspirin; Z79.4 Long term (current) use of insulin
CPT/HCPCS: 36415; 74019; 74176; 80048; 80053; 81003; 81015; 82607; 82728; 82947; 83036; 83540; 83550; 83605; 83735; 84484; 85025; 86140; 87040; 87070; 87077; 87086; 87186; 87205; 87640; 87641; 93005; 94640; 99223; 99284; A9270-GY; J1815; J1885; J2405; J2543; J3475

== ENCOUNTER 2018-11-11 16:50 | Observation (INO) | payer MEDICARE, OTHER ==
[2018-11-11] MEDS ORDERED: Dextrose 50% Syringe 50 ML* 25 GM/50 ML SYRINGE IV PUSH PRN (17:32)
[2018-11-11] MEDS ORDERED: Furosemide IV* 10 MG/ML 2 ML VIAL (20 MG) IV SLOW PU ONE (17:36)
[2018-11-11] MEDS: Insulin GLARGINE(*) 1 UNITS UNIT SUBCUT SCH (19:43)
[2018-11-11] MEDS ORDERED: Insulin LISPRO* 1 UNITS UNIT SUBCUT SCH (21:00)
[2018-11-11] MEDS: Heparin VIAL(*) 5000 UNITS/ML VIAL (FIVE THOUSAND) SUBCUT SCH (21:33)
[2018-11-11] MEDS ORDERED: Insulin LISPRO* 1 UNITS UNIT SUBCUT ONE (21:45)
[2018-11-11] MEDS: Insulin LISPRO* 1 UNITS UNIT SUBCUT SCH ×2 (21:52→21:55)
[2018-11-11] MEDS ORDERED: Iodixanol* (CONTRAST) 320 MG/ML 100 ML SDV IV ONE (21:58)
[2018-11-12] MEDS: Gabapentin CAP(*) 100 MG PO SCH ×2 (00:22→09:48)
[2018-11-12] MEDS: Heparin VIAL(*) 5000 UNITS/ML VIAL (FIVE THOUSAND) SUBCUT SCH (05:50)
[2018-11-12] MEDS: Insulin GLARGINE(*) 1 UNITS UNIT SUBCUT SCH (05:51)
[2018-11-12 08:17] VITALS: BP 128/64
[2018-11-12] MEDS ORDERED: Dextrose 50% Syringe 50 ML* 25 GM/50 ML SYRINGE IV PUSH PRN (09:27)
[2018-11-12] MEDS ORDERED: Insulin GLARGINE(*) 1 UNITS UNIT SUBCUT ONE (09:29)
[2018-11-12] MEDS ORDERED: Insulin LISPRO* 1 UNITS UNIT SUBCUT SCH (09:30)
[2018-11-12] MEDS: Insulin LISPRO* 1 UNITS UNIT SUBCUT SCH (09:37)
--- NOTE | 2018-11-13 12:13 | DS ---
CC: Dr. Briggs; Dr. Gustabo Martin * DISCHARGE SUMMARY: DATE OF ADMISSION: 11/11/18 DATE OF DISCHARGE: 11/12/18 PRIMARY CARE PROVIDER: Dr. Briggs. PRIMARY ONCOLOGIST: Dr. Gustabo Martin. ATTENDING PHYSICIAN: Dr. Jesse Ricci.* (DICTATED BY ETHEL BARR) DISCHARGING PROVIDER: ETHEL Barr PRIMARY DISCHARGE DIAGNOSES: 1. Acute dyspnea and hypoxia, likely secondary to fluid overload versus hypersensitivity reaction to Taxol. 2. Uterine carcinoma status post hysterectomy and adjuvant brachytherapy who received cycle 1 of carbo-Taxol on 11/11/18. 3. Insulin-dependent diabetes with hyperglycemia. 4. Diastolic heart failure. DISCHARGE MEDICATIONS: 1. Albuterol inhaler 2 puffs inhaled q.4 hours as needed for shortness of breath. 2. Aspirin 81 mg p.o. daily. 3. Atorvastatin 40 mg p.o. daily. 4. Gabapentin 100 mg p.o. 3 times daily. 5. Lantus 60 units subcu twice daily. 6. Lispro 30 units subcu twice daily. 7. Magnesium oxide 400 mg p.o. twice daily. 8. Metoprolol tartrate 25 mg p.o. twice daily. 9. Omeprazole 20 mg p.o. daily. 10. Ondansetron 4 mg p.o. 3 times daily as needed. 11. Potassium chloride 20 mEq p.o. daily. 12. Compazine 10 mg p.o. q.6 hours as needed. 13. Ramipril 10 mg p.o. at bedtime. 14. Spironolactone 25 mg p.o. daily. 15. Torsemide 10 mg p.o. daily. HOSPITAL IMAGIN. CTA of the chest is negative for PE. 2. Venous Doppler is negative for DVT. HOSPITAL COURSE: This is a 63-year-old female with uterine carcinoma status post hysterectomy and bilateral salpingo-oophorectomy followed by adjuvant brachytherapy who recently started adjuvant chemotherapy and received her first cycle of carboplatin and Taxol. The patient had a mild hypersensitivity reaction to Taxol during infusion. Her infusion was briefly interrupted and she received saline fluid bolus and was subsequently able to resume her Taxol infusion and completed without complications. She subsequently ambulated out of chemotherapy suite and became acutely short of breath when she reached the elevator. She was subsequently escorted back to an exam room for evaluation. She was found to be hypoxic with oxygen saturations at 88% on room air without adequate explanation for her acute dyspnea and hypoxia. The patient was subsequently directly admitted to the hospital for further observation, evaluation and treatment. She had a CTA of the chest which was negative for PE and lower extremity Doppler which was also negative for DVT. The patient was afebrile. CTA showed no evidence of pneumonia or other acute process. She also has significant history of COPD. She has a known history of diastolic heart failure. BNP was mildly elevated at admission at 226. Remainder of her labs was largely unremarkable. The patient received one dose of IV Lasix and was maintained on 2 L of supplemental oxygen overnight. On reevaluation, the morning of discharge, the patient reported being asymptomatic. Supplemental oxygen was removed and she remained asymptomatic with oxygen saturations in the mid to high 90s. With ambulation around the nurses station, she complained of no dyspnea and again oxygen saturations were maintained in the mid 90s. Of note, the patient had rather significant hyperglycemia with glucose near 500 during this hospitalization. She did receive steroids during her chemotherapy infusion and her hyperglycemia was likely a reaction to this. She received additional insulin and she was otherwise asymptomatic. DISPOSITION AND FOLLOWUP PLAN: The patient is being discharged to home with instructions to increase her insulin lispro to include an additional 30 units at lunchtime over the next 2 days, at which point I expect her hyperglycemia to improve following her chemotherapy infusion and associated dexamethasone. Most likely explanation for her presenting symptoms was fluid overload versus some residual effects from hypersensitivity reaction to the Taxol. She is asymptomatic at the time of discharge. We plan to continue with adjuvant chemotherapy as previously scheduled. The patient has followup scheduled with Oncology for next week and received instructions to please call with any concerns. ETHEL BARR [id number]/[facility] #: [id number] GARRY
== END 2018-11-12 11:40 | disposition home or self-care (01) ==
LOC: UNDOADMOB 16:50 → MED 16:50
PROVIDERS: ADMIT Internal Medicine Hematology & Oncology; ATTEND Internal Medicine Hematology & Oncology
DX: R06.00 Dyspnea, unspecified (principal); R09.02 Hypoxemia; Z85.42 Personal history of malignant neoplasm of other parts of uterus; E11.65 Type 2 diabetes mellitus with hyperglycemia; Z79.4 Long term (current) use of insulin; I50.30 Unspecified diastolic (congestive) heart failure; Z79.82 Long term (current) use of aspirin; I10 Essential (primary) hypertension; Z86.69 Personal history of other diseases of the nervous system and sense organs; E66.9 Obesity, unspecified; Z86.73 Personal history of transient ischemic attack (TIA), and cerebral infarction without residual deficits
CPT/HCPCS: 36415; 71275; 82947; 83880; 84484; 93005; 96372; 96374; 99217; 99219; A9270-GY; G0378; J1642; J1644; J1940; Q9967

== ENCOUNTER 2018-11-14 16:18 | Inpatient (IN) | payer MEDICARE, OTHER ==
--- OUTSIDE RECORDS SUMMARY | 2018-11-14 16:28 | XMS REPORT | Continuity of Care Document ---
:1955 External Reference #:[id number] Author Name Milagros Ron Care Team Providers Name Role Phone Herminio Rodriguez MD Care Team Information Call Center Operator Unavailable Aki Briggs MD Primary Care Physician Unavailable Payers Type Date Identification Numbers Payment Provider Subscriber Effective: Policy Number: [id number] Medicare Kelley Camp 2017 PayID: [id number] [address] [place] [address] Policy Number: [id number] [employer] Kelley Camp Group Number: [id number] [address] PayID: [id number] [place] [address] Advance Directives Description No Information Available Problems Description No Information Family History Date Family Member(s) Problem(s) Comments : (age 56 Years) Mother due to Cancer, Lung Social History Type Date Description Comments Sex Unknown Marital Status Lives With Alone Occupation Disabled ETOH Use Denies alcohol use Tobacco Use Start: Unknown End: Patient is a former smoker Unknown Smoking Status Reviewed: 07/15/18 Patient is a former smoker Exercise Type/Frequency Does not exercise Allergies, Adverse Reactions, Alerts Description No Known Drug Allergies Medications Medication Date Status Form Strength Qnty SIG Indications Ordering Provider Albuterol 00 Active Powder 1-2 puffs Unknown Sulfate /0000 every 4 hours as needed sob Aspirin Adult [address] 81mg take one Unknown Low Strength /0000 tablet by mouth daily. Atorvastatin Active Tablets 40mg 1 by mouth Unknown Calcium /0000 every day Diphenhydramine Active Tablets 25mg take 1 tab Unknown HCL /0000 by mouth four times a day as needed Colace Active Capsules 100mg 1 tab by Unknown /0000 mouth 2 times a day Doxycycline Active Tablets 100mg 1 by mouth Unknown Hyclate /0000 twice a day Hydrocodone-Acet Active Tablets 5-325mg 1 or 2 tabs Unknown aminophen /0000 by mouth every 6-8 hours as needed for pain Glargine Active 60 units Unknown /0000 subq in a.m. and 40 units subq in the p.m. Lispro Active 1 unit Unknown /0000 before meals for every 12grams of carbs Dulera Active Aerosol 100-5mcg/ inhale two Unknown Act puffs by mouth twice a day Omeprazole Active Capsules DR 20mg 1 by mouth Unknown /0000 every day Ramipril Active Capsules 10mg 1 by mouth Unknown / every day Floranex Active Tablets 2 tabs Unknown /0000 every day Docusate Sodium Active Capsules 100mg 1 tab every Unknown /0000 12 hours as needed for constipatio n Mometasone Active Suspension 50mcg/Act Unknown Furoate Atenolol 04/20 Hx Tablets 25mg 30tab 1 PO qd aden Jarrett M.D. Vicodin 04/18 Hx Tablets 5mg;500 30tab 1 PO qd prn mg aden Jarrett M.D. Adviment 04/17 Hx Tablets 2mg/1000 1 po bid Ignacia Jarrett M.D. Bextra 04/17 Hx Tablets 10mg 1 PO qd Ignacia Jarrett M.D. Albuterol 04/17 Hx Aerosol 90mcg/Dos perez Jarrett M.D. Immunizations Description No Information Available Vital Signs Date Vital Result Comment 07/15/2018 10:55am Height 62 inches 5'2" Weight 247.00 lb Heart Rate 76 /min BP Systolic 136 mmHg BP Diastolic 78 mmHg Respiratory Rate 18 /min Body Temperature 98.0 F BMI (Body Mass Index) 45.2 kg/m2 04/18/2004 2:19pm Height 62 inches Weight 215.00 lb Heart Rate 92 /min BP Systolic Sitting 112 mmHg BP Diastolic Sitting 74 mmHg BP Systolic Standing 120 mmHg BP Diastolic Standing 80 mmHg O2 % BldC Oximetry 95 % BMI (Body Mass Index) 39.3 kg/m2 Results Test Date Facility Test Result H/L Range Note Laboratory test 06/14/2015 [facility] Blood Culture SEE RESULT [address] [place] [address] [phone] 1 SEE RESULT BELOW Name: DAYTONKELLEY BUCKLEY : [address]: Denise Laura MD Acct: [id number] Unit: [id number] AGE: 60 Location: [place] [address] Re06/14/15 Dis: 06/15/15 SEX: F Status: DIS Malaika SPEC: [id number] NAYA: 06/14/15-[address] [facility] [address]: Bhavesh Rico MD REQ: [id number] RECD: 06/14/15 STATUS: SHAKIR ESTEVES DR: Jaime Hernandez MD PC _ SOURCE: BLOOD,VENO SPDESC: ORDERED: Blood Cult COMMENTS: Patient is On Antibiotics? NO Procedure Result Verified Site Aerobic Culture Bottle Final 06/19/15- 2125 ML No Growth Day 5 Anaerobic Culture Bottle Final 06/19/15- 2125 ML No Growth Day 5 * ML - MAIN LAB ([facility]) . END OF REPORT * ML=Testing performed at Main Lab DEPARTMENT OF PATHOLOGY, [address] [place] [address] Jorge Quintana M.D. Director [facility] # [id number] Procedures Date Code Description Status 09/17/2018 01502 Debridement Skin,& sq Tissue Completed 08/06/2018 09714 I&D Of Abscess Complicated Completed 07/23/2018 71063 Removal Devitalization Tissue Wound Less Than Equal 20 Completed Square CM 07/04/2018 29428 EKG, Interpretation Only Completed 10/31/2015 11378 ECHO Transthorasic Realtime 2D W Doppler & Color Flow Hosp Completed 06/15/2015 11309 Color Flow Doppler/Interp & Reprt Completed 06/15/2015 68684 Pulse Wave/Continuous-Interp.RPT Completed 06/15/2015 18527 Echocardiography, Transesophageal, Real Time W/Image 2D Completed W/W/O M-M 02/07/2015 07382 ECHO Transthorasic Realtime 2D W Doppler & Color Flow Hosp Completed 02/06/2015 50894 EKG, Interpretation Only Completed 04/17/2013 85040 ECHO Transthorasic Realtime 2D W Doppler & Color Flow Hosp Completed 04/17/2013 77164 EKG, Interpretation Only Completed 04/02/2008 14241 Left Heart Catheterization Completed 04/02/2008 17784 Left Heart Catheterization Completed 04/02/2008 16412 Inj Proc LFT Vent/LFT Atrl Angio Completed 04/02/2008 19472 Coronary Angiography Completed 04/02/2008 20426 Coronary Angiography Completed 04/02/2008 59761 S/I/R Inj Proc Vent And Or Atrial Completed 04/02/2008 60385 Selective Coronary Angioplasty Completed 04/02/2008 31384 Selective Coronary Angioplasty Completed 04/01/2008 29284 Stress Test Supervsn W/Out I/R Completed 04/01/2008 32649 Stress Test Supervsn W/Out I/R Completed 04/01/2008 10934 Treadmill Interp/Report Only Completed 04/01/2008 89421 Echocardiogram Completed 04/01/2008 46451 Echocardiogram Completed 04/01/2008 68465 Pulse Wave/Continuous-Interp.RPT Completed 04/01/2008 27772 Color Flow Doppler/Interp & Reprt Completed 04/01/2008 97457 Color Flow Doppler/Interp & Reprt Completed 10/03/2007 79556 Color Flow Doppler/Interp & Reprt Completed 10/03/2007 96934 Pulse Wave/Continuous-Interp.RPT Completed 10/03/2007 96301 Pulse Wave/Continuous-Interp.RPT Completed 10/03/2007 22650 Echocardiogram Completed 08/31/2004 72302 Color Doppler Completed 04/20/2004 21486 Pulse Doppler & Continuous Wave Completed 04/20/2004 21425 Echocardiogram Completed 04/19/2004 62259 ECHO/Stress Completed 04/19/2004 02520 Treadmill Interp/Report Only Completed 04/19/2004 49447 Stress Test Supervsn W/Out I/R Completed 04/18/2004 12549 EKG Tracing & Interpretation Completed Encounters Type Date Location Provider Dx Diagnosis Office Visit 10/29/2018 [facility], S31.105S Unsp opn wnd abd 1:30p AT [facility] MD wall, periumb rgn w/o penet perit cav, sqla Office Visit 10/15/2018 [facility] Daniel, T81.31xD Disruption of 1:15p AT [facility] MD external operation (surgical) wound, NEC, subs Office Visit 10/08/2018 [facility] Daniel, S31.105S Unsp opn wnd abd 1:15p AT [facility] MD wall, periumb rgn w/o penet perit cav, sqla Office Visit 10/01/2018 [facility] Daniel, S31.105S Unsp opn wnd abd 1:15p AT [facility] MD wall, periumb rgn w/o penet perit cav, sqla Office Visit 09/24/2018 [facility] Daniel, S31.105S Unsp opn wnd abd 2:45p AT [facility] MD wall, periumb rgn w/o penet perit cav, sqla Office Visit 08/27/2018 [facility] Daniel, S31.105S Unsp opn wnd abd 12:45p AT [facility] MD wall, periumb rgn w/o penet perit cav, sqla Office Visit 07/30/2018 [facility] Daniel, S31.105S Unsp opn wnd abd 2:45p AT [facility] MD wall, periumb rgn w/o penet perit cav, sqla Office Visit 07/15/2018 [facility], S31.105D Unsp opn wnd abd 10:45a Of [facility] MD wall, periumb rgn w/o penet perit cav, subs Office Visit 07/09/2018 [facility] Rene Randall T81.30xA Disruption of 2:45p sukumar Schultz MD wound, Hospitalists unspecified, initial encounter B95.7 Oth staphylococcus as the cause of diseases classd elswhr E11.65 Type 2 diabetes mellitus with hyperglycemia E66.01 Morbid (severe) obesity due to excess calories Office Visit 07/08/2018 [place] Zuly Randall T81.30xA Disruption of 2:45p sukumar Schultz MD wound, Hospitalists unspecified, initial encounter B95.7 Oth staphylococcus as the cause of diseases classd elswhr E11.65 Type 2 diabetes mellitus with hyperglycemia E66.01 Morbid (severe) obesity due to excess calories Office Visit 07/07/2018 [facility] T81.30xA Disruption of 2:45p sukumar Schultz M.D. wound, Hospitalists unspecified, initial encounter B95.7 Oth staphylococcus as the cause of diseases classd elswhr E11.65 Type 2 diabetes mellitus with hyperglycemia E66.01 Morbid (severe) obesity due to excess calories Office Visit 07/06/2018 [facility] T81.30xA Disruption of 2:44p sukumar Schultz M.D. wound, Hospitalists unspecified, initial encounter E11.65 Type 2 diabetes mellitus with hyperglycemia Z68.41 Body mass index (BMI) 40.0-44.9, adult E66.01 Morbid (severe) obesity due to excess calories Office Visit 07/05/2018 [facility] T81.30xA Disruption of 2:44p sukumar Schultz M.D. wound, Hospitalists unspecified, initial encounter E11.65 Type 2 diabetes mellitus with hyperglycemia Z68.41 Body mass index (BMI) 40.0-44.9, adult E66.01 Morbid (severe) obesity due to excess calories Office Visit 07/04/2018 [facility] E11.65 Type 2 diabetes 2:44p sukumar Schultz PA mellitus with Hospitalists hyperglycemia S31.109D Unsp opn wnd abd wall, unsp q w/o penet perit cav, subs T81.31xA Disruption of external operation (surgical) wound, NEC, init Office Visit 07/04/2018 [facility] Dana Addy S31.109D Unsp opn wnd abd 7:00a [facility] MD wall, unsp q w/o penet perit cav, subs Office Visit 07/03/2018 [facility] E11.65 Type 2 diabetes 2:43p Asssukumar wood PA mellitus with Hospitalists hyperglycemia E87.1 Hypo-osmolality and hyponatremia T81.31xA Disruption of external operation (surgical) wound, NEC, init Office Visit 07/03/2018 [facility] Santiago Blackburn T81.31xA Disruption of 9:45a For Infectious Macqueen, M.D. external Diseases operation (surgical) wound, NEC, init E11.65 Type 2 diabetes mellitus with hyperglycemia Office Visit 07/02/2018 2:43p [place] Zuly Ospina Z79.4 detention Assoc,ETHEL Ratliff (current) use of Hospitalists insulin E11.65 Type 2 diabetes mellitus with hyperglycemia T81.30xA Disruption of wound, unspecified, initial encounter E87.1 Hypo-osmolality and hyponatremia Office Visit 07/01/2018 [place] Zuly Randall E11.65 Type 2 diabetes 2:42p Assoc,sukumar Cassidy MD mellitus with Hospitalists hyperglycemia E87.1 Hypo-osmolality and hyponatremia R11.0 Nausea R51 Headache Office Visit 11/05/2015 2:18p [place] Zuly Wong N17.0 Acute kidney Assocsukumar M.D. failure with Hospitalists tubular necrosis E11.9 Type 2 diabetes mellitus without complications E87.2 Acidosis I10 Essential (primary) hypertension Office Visit 11/04/2015 2:17p [place] Zuly Wong N17.0 Acute kidney Assocsukumar M.D. failure with Hospitalists tubular necrosis E11.9 Type 2 diabetes mellitus without complications E87.2 Acidosis I10 Essential (primary) hypertension Office Visit 11/03/2015 2:17p Beth Wong N17.0 Acute kidney Assocsukumar M.D. failure with Hospitalists tubular necrosis E11.9 Type 2 diabetes mellitus without complications E87.2 Acidosis I10 Essential (primary) hypertension Office Visit 11/02/2015 2:16p Beth Wong N17.0 Acute kidney Assocsukumar M.D. failure with Hospitalists tubular necrosis E11.9 Type 2 diabetes mellitus without complications E87.2 Acidosis I10 Essential (primary) hypertension Office Visit 11/01/2015 2:16p Beth Wong N17.0 Acute kidney Assocsukumar M.D. failure with Hospitalists tubular necrosis E11.9 Type 2 diabetes mellitus without complications E87.2 Acidosis I10 Essential (primary) hypertension Office Visit 10/31/2015 2:15p Beth Wong N17.0 Acute kidney Assocsukumar M.D. failure with Hospitalists tubular necrosis E11.9 Type 2 diabetes mellitus without complications E87.2 Acidosis I10 Essential (primary) hypertension Office Visit 10/30/2015 2:15p [facility] Jaime Howard N17.0 Acute kidney Asssukumar wood II, M.D. failure with Hospitalists tubular necrosis E11.9 Type 2 diabetes mellitus without complications E87.5 Hyperkalemia I10 Essential (primary) hypertension Office Visit 06/15/2015 [facility] Vielka 782.0 Skin Sensation 3:31p Clinic Mary Ann Webb Disturbance 784.59 Other Speech Disturbance 438.20 Hemiplegia Unspec Side Office Visit 06/14/2015 4:11p [facility] Rashel 434.91 Occlusion Assoc,sukumar Corea N.PAvery Cerebral Artery Hospitalists Unspec W/ Cerebral Infarc 401.9 Hypertension Unspec 250.00 Diabetes Mellitus W/O Compl Type II Or Unspec Controlled 272.4 Hyperlipidemia Other Unspec Office Visit 02/09/2015 9:46a [facility] Ashley 434.91 Occlusion Asssukumar wood M.D. Cerebral Artery Hospitalists Unspec W/ Cerebral Infarc 272.4 Hyperlipidemia Other Unspec 250.00 Diabetes Mellitus W/O Compl Type II Or Unspec Controlled 401.9 Hypertension Unspec Office Visit 02/08/2015 [facility] Vivien Khoury 434.91 Occlusion 2:13p Clinic Mary Ann Carrera Cerebral Artery Unspec W/ Cerebral Infarc Office Visit 02/08/2015 [facility] Ashley 434.91 Occlusion 9:46a sukumar Schultz M.D. Cerebral Artery Unspec W/ Cerebral Infarc 272.4 Hyperlipidemia Other Unspec 250.00 Diabetes Mellitus W/O Compl Type II Or Unspec Controlled 401.9 Hypertension Unspec Office Visit 02/07/2015 9:46a [facility] Raquel 434.91 Occlusion Assocsukumar D.O. Cerebral Artery Hospitalists Unspec W/ Cerebral Infarc 272.4 Hyperlipidemia Other Unspec 250.00 Diabetes Mellitus W/O Compl Type II Or Unspec Controlled 401.9 Hypertension Unspec Office Visit 02/06/2015 [facility] Nick 434.91 Occlusion 2:12p Clinic Mary Ann Vogt Cerebral Artery Unspec W/ Cerebral Infarc Office Visit 02/06/2015 [facility] Raquel 434.91 Occlusion 9:45a Asssukumar wood D.O. Cerebral Artery Unspec W/ Cerebral Infarc 272.4 Hyperlipidemia Other Unspec 250.00 Diabetes Mellitus W/O Compl Type II Or Unspec Controlled 401.9 Hypertension Unspec Office Visit 02/05/2015 9:45a [facility] Rashel 434.91 Occlusion Assoc,sukumar Corea N.PAvery Cerebral Artery Hospitalists Unspec W/ Cerebral Infarc 250.00 Diabetes Mellitus W/O Compl Type II Or Unspec Controlled 272.4 Hyperlipidemia Other Unspec 401.9 Hypertension Unspec Office Visit 02/05/2015 [facility] Nick 434.91 Occlusion 2:09p Clinic Mary Ann Vogt Cerebral Artery Unspec W/ Cerebral Infarc Office Visit 11/04/2014 [place] [facility] Vivien Khoury 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 Total 780.4 Dizziness & Giddiness Office Visit 04/19/2013 [facility] [place] 481 Pneumonia 9:54a Asssukumar wood II, M.D. Pneumococcal Hospitalists 995.91 Sepsis 250.02 Diabetes Mellitus W/O Compl Type II Or Unspec Type Uncontrol Office Visit 04/17/2013 [facility] 481 Pneumonia 9:53a Assoc,sukumar Crawford M.D. Pneumococcal Hospitalists 995.91 Sepsis 250.02 Diabetes Mellitus W/O Compl Type II Or Unspec Type Uncontrol Office Visit 04/18/2004 [place] Yuri Beth 794.31 Electrocardiogram 2:40p Cardiology Mary Ann Jarrett (ECG) (EKG) Abnormal 785.2 Murmur Cardiac Undiagnosed Plan of Treatment 07/15/2018 - Dana Daniel, MDS31.105D Unspecified open wound of abdominal wall, periumbilic region without penetration into peritoneal cavity, subsequent encounterFollow up:Refer to wound center
[2018-11-14] MEDS ORDERED: NS 0.9% 1000 ML* 1,000 ML IV ONE ×2 (16:41→18:59)
[2018-11-14] MEDS ORDERED: Ondansetron INJ* 2 MG/ML VIAL IV ONE (16:42)
--- NOTE | 2018-11-14 16:45 | ED ---
GI/ HPI - HPI Summary HPI Summary: Patient is a 63 y/o F patient presenting to ED with complaints of N/V onsetting yesterday morning with an exacerbation in Sx today. PMHx of uterine cancer, she states that last chemo was three days ago, patient is being treated by Dr. Martin. Patient tried home nausea medication with no relief in Sx. She states she has not been able to keep any food down. On triage, associated severity is rated 10/10. Home medications and allergies are reviewed. - History of Current Complaint Chief Complaint: EDNauseaVomitDiarrh Time Seen by Provider: 11/14/18 16:35 Stated Complaint: NAUSEA/VOMITING Hx Obtained From: Patient Onset/Duration: Started Days Ago - yesterday morning, Still Present, Worse Since - today Timing: Constant, Lasting Days - onset yesterday morning Severity: Moderate Current Severity: Severe Pain Intensity: 10 Associated Signs and Symptoms: Positive: Nausea, Vomiting Aggravating Factor(s): Nothing Alleviating Factor(s): Nothing - Additional Pertinent History Primary Care Physician: SHAHEED - Allergy/Home Medications Allergies/Adverse Reactions: Allergies Allergy/AdvReac Type Severity Reaction Status Date / Time No Known Allergies Allergy Verified 11/11/15 13:31 PMH/Surg Hx/FS Hx/Imm Hx Endocrine/Hematology History: Reports: Hx Diabetes Denies: Hx Systemic Lupus Erythematosus, Hx Anemia Cardiovascular History: Reports: Hx Hypercholesterolemia, Hx Hypertension, Other Cardiovascular Problems/Disorders - hx stroke Denies: Hx Congestive Heart Failure, Hx Pacemaker/ICD Respiratory History: Reports: Hx Asthma, Hx Chronic Obstructive Pulmonary Disease (COPD), Hx Pneumonia, Other Respiratory Problems/Disorders - Hx of smoking GI History: Reports: Hx Gastroesophageal Reflux Disease Denies: Hx Jaundice History: Denies: Hx Dialysis, Hx Renal Disease Musculoskeletal History: Reports: Hx Back Problems Denies: Hx Rheumatoid Arthritis Sensory History: Reports: Hx Contacts or Glasses - Glasses at home, 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 X 2 C SECTIONS; lower lumbar 2000, hysterectomy 2018 ([facility]) Hx Anesthesia Reactions: No Infectious Disease History: No Infectious Disease History: Reports: Hx of Known/Suspected MRSA Denies: Hx Clostridium Difficile, Hx Hepatitis, Hx Human Immunodeficiency Virus (HIV), Hx Shingles, Hx Tuberculosis, Hx Known/Suspected VRE, Hx Known/ Suspected VRSA, History Other Infectious Disease, Traveled Outside the [place] in Last 30 Days - Family History Known Family History: Negative: Renal Disease - Social History Alcohol Use: Rare Substance Use Type: Reports: None Smoking Status (MU): Former Smoker Type: Cigarettes Have You Smoked in the Last Year: No Review of Systems Negative: Fever - on vitals, temp is 98.2 F Positive: Vomiting, Nausea All Other Systems Reviewed And Are Negative: Yes Physical Exam - Summary Physical Exam Summary: Appearance: The patient is well-nourished in no acute distress and in no acute pain. Skin: The skin is warm and dry and skin color reflects adequate perfusion. HEENT: The head is normocephalic and atraumatic. The pupils are equal and reactive. The conjunctivae are clear and without drainage. Nares are patent and without drainage. Mouth reveals dry mucous membranes and the throat is without erythema and exudate. The external ears are intact. The ear canals are patent and without drainage. The tympanic membranes are intact. Neck: The neck is supple with full range of motion and non-tender. There are no carotid bruits. There is no neck vein distension. Respiratory: Chest is non-tender. Lungs are clear to auscultation and breath sounds are symmetrical and equal. and Cardiovascular: Heart is regular rate and rhythm. There is no murmur or rub auscultated. There is no peripheral edema and pulses are symmetrical and equal. Abdomen: The abdomen is soft and non-tender. There are normal bowel sounds heard in all four quadrants and there is no organomegaly palpated. Musculoskeletal: There is no back tenderness noted. Extremities are non-tender with full range of motion. There is good capillary refill. There is no peripheral edema or calf tenderness elicited. Neurological: Patient is alert and oriented to person, place and time. The patient has symmetrical motor strength in all four extremities. Cranial nerves are grossly intact. Deep tendon reflexes are symmetrical and equal in all four extremities. Psychiatric: The patient has an appropriate affect and does not exhibit any anxiety or depression. Triage Information Reviewed: Yes Vital Signs On Initial Exam: Initial Vitals Temp Pulse Resp BP Pulse Ox 98.2 F 73 18 133/59 96 11/14/18 16:19 11/14/18 16:19 11/14/18 16:19 11/14/18 16:19 11/14/18 16:19 Vital Signs Reviewed: Yes Diagnostics - Vital Signs Vital Signs Temp Pulse Resp BP Pulse Ox 11/14/18 16:19 98.2 F 73 18 133/59 96 - Laboratory Result Diagrams: 11/14/18 17:13 11/14/18 17:13 Lab Statement: Any lab studies that have been ordered have been reviewed, and results considered in the medical decision making process. - Radiology CXR Radiology Interpretation Completed By: ED Physician Summary of Radiographic Findings: pulmonary edema, pending official report GIGU Course/Dx - Course Course Of Treatment: Ms. Camp presented with intractable vomiting. She had a recent admission during which she developed some mild CHF. She was given fluids gently here and clinically did not have any problem with them however I was unable to help relieve her vomiting with Zofran, Compazine, Ativan and dexamethasone. I spoke with Dr. Ricci who recommended admission to the hospitalist service. A chest x-ray was obtained here and does look like she has some pulmonary edema. Clinically she does not appear to be in any distress. - Diagnoses Provider Diagnoses: Pulmonary edema, Intractable vomiting - Physician Notifications Discussed Care Of Patient With: Jesse Ricci Time Discussed With Above Provider: 20:16 Instructed by Provider To: Other - Patient's case was discussed with Dr. Ricci, who recommended ativan and dexamethasone. 2199 Patients case was discussed with Dr. De La Paz, Dr. De La Paz accepts for admission. Discharge - Sign-Out/Discharge Documenting (check all that apply): Patient Departure - admit - Discharge Plan Condition: Good Disposition: ADMITTED TO [facility] Referrals: Aki Briggs MD [Primary Care Provider] - - Billing Disposition and Condition Condition: GOOD Disposition: Admitted to [facility] - Attestation Statements Document Initiated by Scribe: Yes Documenting Scribe: LINDA SHARMA Provider For Whom Scribe is Documenting (Include Credential): MAGUE GOMEZ MD Scribe Attestation: I, LINDA SHARMA, scribed for MAGUE GOMEZ MD on 11/14/18 at 2223. Scribe Documentation Reviewed: Yes Provider Attestation: The documentation as recorded by the LINDA saalmanca accurately reflects the service I personally performed and the decisions made by me, MAGUE GOMEZ MD Status of Scribe Document: Viewed
[2018-11-14 17:22] LABS: ABS Basophils 0.1 10^3/ul (0-0.2); ABS Eosinophils 0 10^3/ul (0-0.6); ABS Lymphocytes 0.3 10^3/ul (1.0-4.8); ABS Monocytes 0 10^3/ul (0-0.8); ABS Neutrophils 8.7 10^3/ul (1.5-7.7); ABS Nucleated RBC 0 10^3/ul; Eosinophil % 0.5 %; Hematocrit 39 % (35-47); Hemoglobin 13.1 g/dl (12.0-16.0); Lymphocyte % 3.5 %; Mean Corpuscular HGB Conc 34 g/dl (31-36); Mean Corpuscular Hemoglobin 29 pg (27-31); Mean Corpuscular Volume 87 fL (80-97); Mean Platelet Volume 8.5 fL (7.4-10.4); Nucleated Red Blood Cells % 0; Platelet Count 245 10^3/ul (150-450); Red Blood Count 4.44 10^6/ul (4.00-5.40); Red Cell Distribution Width 16 % (10.5-15); White Blood Count 9.1 10^3/ul (3.5-10.8)
[2018-11-14 17:40] LABS: EGFR Non-African American 48.3 (>60)
[2018-11-14] MEDS ORDERED: PROCHLORPERAZINE INJ 5 MG/ML 2 ML VIAL IV PRN (19:13)
[2018-11-14] MEDS ORDERED: LORazepam INJ* 2 MG/ML 1 ML VIAL IV ONE (20:18)
[2018-11-14] MEDS ORDERED: Dexamethasone IV* 4 MG/ML 1 ML (4 MG) IV SLOW PU ONE (20:18)
[2018-11-14 22:05] LABS: Urine Appearance Clear; Urine Blood Negative (Negative); Urine Color Yellow; Urine Ketones Trace (Negative); Urine Protein 2+(100 mg/dL) (Negative); Urine Red Blood Cell Absent (Absent); Urine Urobilinogen Negative (Negative); Urine White Blood Cell Trace(0-5/hpf) (Absent)
[2018-11-14] MEDS ORDERED: Ondansetron INJ* 2 MG/ML VIAL IV PRN (22:09)
[2018-11-14] MEDS ORDERED: Albuterol 2.5 MG/3 ML NEB.SOL* (0.083%) INH PRN (22:09)
[2018-11-14] MEDS ORDERED: NS 0.9% 1000 ML* 1,000 ML IV SCH ×3 (22:15→23:04)
[2018-11-14] MEDS ORDERED: Albuterol HFA INHALER* 8 gm MDI INH PRN (22:16)
[2018-11-14] MEDS ORDERED: PROCHLORPERAZINE INJ 5 MG/ML 2 ML VIAL IM PRN (22:22)
[2018-11-14] MEDS ORDERED: LORazepam INJ* 2 MG/ML 1 ML VIAL IV PUSH PRN (22:23)
[2018-11-14] MEDS ORDERED: Morphine VIAL* 4 MG/ML VIAL (1 ml vial) IV PRN (22:59)
[2018-11-14] MEDS: Ondansetron INJ* 2 MG/ML VIAL IV PRN (23:37)
--- NOTE | 2018-11-14 23:48 | ADMNOTE ---
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 regimen including taxil and cisplatinum ) presented to er with intractable n/v for the past three days. pt was unable to get anything down---> she also complained about rlq contanst achy abd pain 09/10. pt was given zofran and compazine from er but vomitted out. er spoke with onc will try decadron + ativan. pt will also go for ct abd/pelvis with iv contrast to eval her abd pain. hx of ameena and compliant with her cpap ---> family will bring cpap in tmr pt was found to have elevated tb to 2.9 <--- 2.0 11/11/18<---1.5 11/05/2018 lactate was 2.4 <--- 2.4 07/01/2018 bnp 425<---228 11/11/2018 despite initial chest x ray showed pul vascular congestion ---> ap view chest x ray though phx type ii dm morbid obesity ameena compliant with cpap htn cva twice but no focal neurological deficits prob lacunar infarct---> last cva was 3 yrs ago peripheral neuropathy prob related to type ii dm uterine ca dxd 06/2018 s/p frederick/bso with illiac lnd stage T1A 3 mm depth of 15 of myometrium 0 ln endometrial polyp with cervical dysplasia bradytherapy * 3 treatments completed 09/08/2018 copd pshx s/p frederick/bso social hx quit cig 11-12 yrs ago no etoh lives alone able to ambulate with no assist fhx father + htn/dm Review of Systems - Measurements Intake and Output: Intake and Output Last 24 Hours 11/12/18 11/13/18 11/14/18 11/15/18 06:59 06:59 06:59 06:59 Intake Total 1999 Balance 1999 Weight 240 lb Intake: IV Fluids 1999 - Review of Systems General Comments: pertinent as per hpi Objective Active Medications: Albuterol (Ventolin 2.5 Mg/3 Ml Neb.Angelica*) 2.5 mg INH [id number] AWAKE PRN PRN Reason: sob/wheezing Albuterol (Ventolin Hfa Inhaler*) 2 puff INH Q4H PRN PRN Reason: SHORTNESS OF BREATH Dexamethasone Sodium Phosphate (Decadron Iv*) 4 mg IV SLOW PU Q8HR [facility] Enoxaparin Sodium (Lovenox(*)) 40 mg SUBCUT Q24H [facility] Sodium Chloride (Ns 0.9% 1000 Ml*) 1,000 mls @ 100 mls/hr IV PER RATE [facility] Stop: 11/15/18 09:03 Insulin Human Regular (Insulin Regular(*)) 0 units SUBCUT Q6HR [facility]; Protocol Lorazepam (Ativan Inj*) 0.5 mg IV PUSH Q6H PRN PRN Reason: nausea Metoprolol Tartrate (Lopressor Iv*) 2.5 mg IV BID [facility] Stop: 11/16/18 09:01 Morphine Sulfate (Morphine Vial*) 1 mg IV Q6H PRN PRN Reason: PAIN Ondansetron HCl (Zofran Inj*) 4 mg IV Q6H PRN PRN Reason: NAUSEA Last Admin: 11/14/18 23:37 Dose: 4 mg Pantoprazole Sodium (Protonix Iv*) 40 mg IV Q24H [facility] Prochlorperazine Edisylate (Compazine Inj*) 10 mg IV Q6H PRN PRN Reason: NAUSEA/VOMITING Last Admin: 11/14/18 19:31 Dose: 10 mg Prochlorperazine Edisylate (Compazine Inj*) 10 mg IM Q6H PRN PRN Reason: nausea Vital Signs - 8 hr 11/14/18 11/14/18 11/14/18 16:19 19:04 19:05 Temperature 98.2 F Pulse Rate 73 82 Respiratory 18 Rate Blood Pressure 133/59 166/88 (mmHg) O2 Sat by Pulse 96 97 Oximetry 11/14/18 11/14/18 11/14/18 19:49 20:00 20:05 Temperature Pulse Rate 84 80 81 Respiratory Rate Blood Pressure 178/87 165/80 (mmHg) O2 Sat by Pulse 93 93 94 Oximetry 11/14/18 11/14/18 11/14/18 20:12 20:30 20:35 Temperature 100.4 F Pulse Rate 85 Respiratory 18 Rate Blood Pressure 157/62 (mmHg) O2 Sat by Pulse 93 Oximetry 11/14/18 11/14/18 11/14/18 21:00 21:04 21:35 Temperature Pulse Rate 79 83 81 Respiratory Rate Blood Pressure 123/76 156/64 (mmHg) O2 Sat by Pulse 96 96 95 Oximetry 11/14/18 11/14/18 11/14/18 22:00 22:04 23:00 Temperature Pulse Rate 89 108 103 Respiratory Rate Blood Pressure 168/80 (mmHg) O2 Sat by Pulse 94 95 94 Oximetry 11/14/18 23:44 Temperature 100.4 F Pulse Rate 83 Respiratory 18 Rate Blood Pressure 168/80 (mmHg) O2 Sat by Pulse 95 Oximetry Oxygen Devices in Use Now: None Appearance: nad Eyes: No Scleral Icterus, PERRLA Ears/Nose/Mouth/Throat: NL Teeth, Lips, Gums, Clear Oropharnyx, Mucous Membranes Moist Neck: NL Appearance and Movements; NL JVP, Trachea Midline, No Thyroid Enlargement, Masses Respiratory: Symmetrical Chest Expansion and Respiratory Effort, Clear to Auscultation Cardiovascular: NL Sounds; No Murmurs; No JVD, RRR Abdominal: - - + very obese abd soft + rlq tenderness no rebound no guarding Extremities: No Edema, - - able to raise ue and le against gravity Skin: No Rash or Ulcers Neurological: Alert and Oriented x 3, NL Sensation, NL Muscle Strength and Tone Result Diagrams: 11/14/18 17:13 11/14/18 17:13 Assess/Plan/Problems-Billing Assessment: this is a 63 yr old wf with hx of uterine ca s/p frederick/bso unable to complete her 1st cycle of chemo due to intractable n/v for the past three days. pt also c/o of rlq with increasing tb level to 2.9. no wbc or fever ct of abd ordered currently pending - Patient Problems (1) Intractable nausea and vomiting Current Visit: Yes Status: Acute Code(s): R11.2 - NAUSEA WITH VOMITING, UNSPECIFIED SNOMED Code(s): 263164947 Comment: strict npo ativan 0.5 ivp q 6 prn along with decadron 4 mg q 8 ivp continue prn zofran and compazine add on reglan 10 mg q prn protonix 40 mg daily iv while npo gentle ivf onc eval in am (2) COPD (chronic obstructive pulmonary disease) Current Visit: No Status: Acute Code(s): J44.9 - CHRONIC OBSTRUCTIVE PULMONARY DISEASE, UNSPECIFIED SNOMED Code(s): 33767819 Comment: -Asymptomatic. PRN albuterol neb (3) RLQ abdominal pain Current Visit: Yes Status: Acute Comment: ct with iv contrast ordered morphine 1 mg q 4 prn ( min opiods due to intractable n/v ) (4) Type II diabetes mellitus Current Visit: Yes Status: Acute Comment: ck a1c strict npo will hold all her dm meds insulin ss along with f/s q6 hr (5) Neuropathy Current Visit: Yes Status: Acute Code(s): G62.9 - POLYNEUROPATHY, UNSPECIFIED SNOMED Code(s): 353018867 Comment: this prob related to her dm will ck a1c and b12 level neurontin on hold for now due to intractable n/v may increase from 100 tid to 300 tid if n/v subsides (6) Total bilirubin, elevated Current Visit: Yes Status: Acute Code(s): R17 - UNSPECIFIED JAUNDICE SNOMED Code(s): 056636205573084 Comment: has been around level 2.0 since nov prob related to chemo will moniter the trend abd sono to eval cbd in am (7) Uterine cancer Current Visit: Yes Status: Acute Code(s): C55 - MALIGNANT NEOPLASM OF UTERUS , PART UNSPECIFIED SNOMED Code(s): 359996896 Comment: onc eval in am cbc stable (8) AMEENA (obstructive sleep apnea) Current Visit: Yes Status: Acute Code(s): G47.33 - OBSTRUCTIVE SLEEP APNEA ( ADULT) (PEDIATRIC) SNOMED Code(s): 77937093 Comment: family will bring in cpap in am (9) Morbid obesity Current Visit: Yes Status: Acute Code(s): E66.01 - MORBID (SEVERE) OBESITY DUE TO EXCESS CALORIES SNOMED Code(s): 598635579 Comment: supportive care (10) Full code status Current Visit: Yes Status: Acute Code(s): Z78.9 - OTHER SPECIFIED HEALTH STATUS SNOMED Code(s): 453893957 (11) DVT prophylaxis Current Visit: Yes Status: Acute Code(s): PLZ2898 - SNOMED Code(s): 017071717
[2018-11-15] MEDS ORDERED: Metoclopramide IV* 5 MG/ML 2 ML VIAL IV PRN (00:28)
[2018-11-15] MEDS ORDERED: Albuterol 2.5 MG/3 ML NEB.SOL* (0.083%) INH PRN (00:29)
[2018-11-15] MEDS ORDERED: Iodixanol* (CONTRAST) 320 MG/ML 100 ML SDV IV ONE (00:44)
[2018-11-15] MEDS: Enoxaparin(*) 40 MG/0.4 ML SYR SUBCUT SCH ×2 (01:38→22:26)
[2018-11-15] MEDS: Gabapentin CAP(*) 100 MG PO SCH ×4 (01:39→22:27)
[2018-11-15] MEDS: Pantoprazole IV* 40 MG IV SCH ×2 (01:46→22:28)
[2018-11-15] MEDS: Insulin REGULAR(*) 1 UNITS UNIT SUBCUT SCH ×4 (01:50→18:22)
[2018-11-15] MEDS ORDERED: Dexamethasone IV* 4 MG/ML 1 ML (4 MG) IV SLOW PU SCH (06:00)
[2018-11-15 07:12] LABS: ABS Basophils 0 10^3/ul (0-0.2); ABS Eosinophils 0 10^3/ul (0-0.6); ABS Lymphocytes 0.3 10^3/ul (1.0-4.8); ABS Monocytes 0 10^3/ul (0-0.8); ABS Neutrophils 6.3 10^3/ul (1.5-7.7); ABS Nucleated RBC 0 10^3/ul; Eosinophil % 0.3 %; Hematocrit 33 % (35-47); Hemoglobin 11.1 g/dl (12.0-16.0); Lymphocyte % 3.8 %; Mean Corpuscular HGB Conc 34 g/dl (31-36); Mean Corpuscular Hemoglobin 30 pg (27-31); Mean Corpuscular Volume 87 fL (80-97); Mean Platelet Volume 8.4 fL (7.4-10.4); Nucleated Red Blood Cells % 0; Platelet Count 188 10^3/ul (150-450); Red Blood Count 3.77 10^6/ul (4.00-5.40); Red Cell Distribution Width 16 % (10.5-15); White Blood Count 6.6 10^3/ul (3.5-10.8)
[2018-11-15 07:54] LABS: EGFR Non-African American 56.8 (>60)
[2018-11-15] MEDS: Metoprolol Tartrate IV* 1 MG/ML 5 ML VIAL IV SCH ×2 (11:38→22:27)
[2018-11-15] MEDS ORDERED: Acetaminophen TAB* 325 MG PO PRN (14:46)
[2018-11-16] MEDS: Insulin REGULAR(*) 1 UNITS UNIT SUBCUT SCH ×4 (00:50→17:59)
[2018-11-16 09:02] LABS: ABS Basophils 0 10^3/ul (0-0.2); ABS Eosinophils 0.2 10^3/ul (0-0.6); ABS Monocytes 0 10^3/ul (0-0.8); ABS Neutrophils 3.3 10^3/ul (1.5-7.7); ABS Nucleated RBC 0 10^3/ul; Eosinophil % 4.1 %; Hematocrit 33 % (35-47); Lymphocyte % 21.3 %; Mean Corpuscular HGB Conc 33 g/dl (31-36); Mean Corpuscular Hemoglobin 29 pg (27-31); Mean Corpuscular Volume 88 fL (80-97); Mean Platelet Volume 8.7 fL (7.4-10.4); Nucleated Red Blood Cells % 0.2; Platelet Count 189 10^3/ul (150-450); Red Blood Count 3.73 10^6/ul (4.00-5.40); Red Cell Distribution Width 16 % (10.5-15); White Blood Count 4.6 10^3/ul (3.5-10.8)
[2018-11-16 09:06] LABS: EGFR Non-African American 62.6 (>60)
[2018-11-16] MEDS: Gabapentin CAP(*) 100 MG PO SCH ×3 (10:02→21:43)
[2018-11-16] MEDS: Metoprolol Tartrate IV* 1 MG/ML 5 ML VIAL IV SCH (10:02)
[2018-11-16] MEDS: Metoprolol Tartrate TAB* 25 MG PO SCH ×2 (12:43→21:43)
[2018-11-16] MEDS: Ondansetron INJ* 2 MG/ML VIAL IV PRN (13:14)
--- NOTE | 2018-11-16 21:40 | CONS ---
GASTROENTEROLOGY CONSULT: DATE: CONSULTING PHYSICIAN: Jesse Ricci REASON FOR CONSULTATION: Nausea and vomiting since receiving carboplatin and Taxol on 11/11/18, and a brief hospitalization for apparent hypoxia and fluid overload on that day. HISTORY: This 63-year-old woman with morbid obesity, diabetes, status post complete hysterectomy for malignancy summer, complicated by wound dehiscence and infection, just received her first dose of chemotherapy 5 days ago. There was some chest heaviness that afternoon and she was admitted to the hospital for 24 hours, with a presumption of fluid overload. She was discharged the next day After 2 days at home she reports very little p.o. intake but going meal by meal she did eat some including rigatoni that went down and stayed down on 11/13. She returned to the ER late on 11/14/18, reporting nausea and vomiting, and "I can't keep anything down." Her history changes and at times she emphasizes anorexia and persistent vomiting for all intake and at other times trouble swallowing anything solid and then vomiting. Through the late summer and fall, she was attending the wound clinic with a wound VAC on her lower abdominal wound. She states that during that time she was not having any stomach problems other than discomfort in the wound itself. She was eating well and was encouraged to get in lots of protein, which she did by having protein shakes, cottage cheese, and meats including chicken. She denied any trouble eating those. During those conversations, she will emphasize that all the vomiting occurred after the chemotherapy day. Her diet in general is nonspecific and without restrictions. She states that she had an upper endoscopy in the [facility] system 6 to 7 years ago at least ( before her stroke) and cannot recall why it was done or the results other than she does not retain any memory of it so it must have been okay. She does state that a colonoscopy done the same day, removed some polyps. Ever since her stroke , she has been prescribed omeprazole 20 mg, which she takes as needed, which is about once a month. It does show up on her records after the stroke in 2014 and varies between being listed as daily versus p.r.n. She emphasizes today that it has always been p.r.n. and less than once a week. She had chest surgery in the 1980s for mediastinal cyst of some type, removed by Dr Ybarra. Her CT of the chest 2 days ago was said to show thickening of the distal esophagus and antrum compared to 2 other CTs of the chest in the last year. PAST MEDICAL HISTORY: 1. Morbid obesity. 2. Diabetes. 3. Episode of renal failure 3 years ago with creatinine going as high as 14 in November 2015 - [place] Sum says cause unknown 4. History of uterine cancer - atypical histology. 5. Status post . 6. History of Boyle's palsy, recurrent. 7. 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 8. COPD. 9. Lumbar disk surgery [place] [address] Carlos. 10. Mediastinal cyst surgery - 1985 MEDICATIONS: Of GI relevance, aspirin 81; magnesium 400 b.i.d.; omeprazole 20 p.r.n.; spironolactone 25; torsemide 10; insulin 30 units b.i.d. ALLERGIES: None known to drugs. SOCIAL HISTORY: She is and currently lives alone in [place]. She states that before her stroke in 2014, she was living with her son in [place] with his family and moved out afterward. The details of that are not known. Both her sons are police officers with the other living in [place]. 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 REVIEW OF SYSTEMS: No history of seizures, syncope, MS, recent falls, palpitations, hepatitis, jaundice, hematuria, renal stones or diarrhea. She has no food allergies. PHYSICAL EXAMINATION: She is a morbidly obese woman, sitting in the chair, appearing comfortable, in no distress and quite conversant and pleasant. She is afebrile. Blood pressure 134/65, pulse 68 and regular. O2 saturation 98% and has been 95% or better since admission at midnight. HEENT exam shows no icterus. She has no adenopathy. There are no bruits. Her lungs are clear, but symmetrically diminished probably from obesity. Her effort is poor. Heart sounds are regular. The abdomen has a broad, completely epithelialized lower abdominal scar. There is panniculus. The exam is limited, but there is no focal tenderness. Rectal is deferred. Extremities show 1+ edema bilaterally and gross obesity. Popliteal pulses are intact. Neurologic exam shows her to be alert, oriented, a good historian, although vague and less structure details are elicited. There is mild left pronator drift. She has no asterixis. Standpipe Tender strength is slightly diminished left side. Cranial nerves seem symmetric, although grimace shows actually a heightened fold on the left compared to the right paradoxically. DIAGNOSTIC STUDIES/LAB DATA: Labs - today 11/16/18, white count 4.6, hemoglobin 11, MCV 88. Creatinine 0.91, BUN 19. LFTs normal. Albumin 3.4, which is consistent with the results over the last 5 years. IMPRESSION: This 63-year-old woman complains of nausea and vomiting. Although she at times seems to describe it as a dysphagia pattern, it appears to be persisting problem for all consistencies and textures since her chemotherapy. She does have a history of symptomatically very mild vague and background gastroesophageal reflux disease and only takes omeprazole less than once a month for a typical symptom. Most interestingly, she had no trouble at all with nutrition or eating for number of months after her hysterectomy this summer and when trying to emphasize getting in protein. She had no trouble with meats or chicken. There is, however, a CT result stating that her distal esophagus appears a little thickened. She could have some scarring there and threshold for reporting symptoms in an individual patient may not predict whether some scarring occurs. As she is just 5 days out from her first chemo with normal counts opportunistic esophagitis is unlikely. Given 2 repeated admissions in short order, upper endoscopy is likely to be helpful for future decision making. At this time, her oxygenation and white count appear adequate for doing this safely. This will be reassessed in the morning. [id number]/[facility] #: [id number] [facility]
[2018-11-17] MEDS: Insulin REGULAR(*) 1 UNITS UNIT SUBCUT SCH ×5 (00:05→23:46)
[2018-11-17] MEDS: Pantoprazole IV* 40 MG IV SCH ×2 (00:09→22:02)
[2018-11-17] MEDS: Enoxaparin(*) 40 MG/0.4 ML SYR SUBCUT SCH ×2 (00:09→22:02)
[2018-11-17] MEDS: Gabapentin CAP(*) 100 MG PO SCH ×3 (09:52→22:01)
[2018-11-17] MEDS: Metoprolol Tartrate TAB* 25 MG PO SCH ×2 (09:52→22:01)
--- NOTE | 2018-11-17 12:50 | ECHO ---
Patient: TORSTEN YODER [facility] Rec#: [id number] : 1955 Date: 11/17/2018 Age: 63y Height: 157 cm / 61.8 in Weight: 109 kg / 240.2 lbs Sex: F BSA: 2.06 Room#: [facility] Admit Date#: 11/15/2018 Type: Inpatient Referring: Leatha De La Paz Reading: Jv Gould MD Reconciliation Clerk: Daya Fisher RN RDCS CC: Aki Briggs MD Transthoracic Echocardiogram Indication: CHF BP: 113/86 HR: 74 Rhythm: NSR with PACs Findings History: HTN, HLD, CHF, CVA, COPD, uterine cancer, chemotherapy, morbid obesity Technical Comments: The study is technically limited due to patient body habitus. The study is technically limited due to the patient's history of COPD. Left Ventricle: The left ventricular chamber size is normal. Moderate concentric left ventricular hypertrophy is observed. There is increased basal septal hypertrophy noted without evidence of an increased gradient across the left ventricular outflow tract. Global left ventricular wall motion and contractility are within normal limits. There is normal left ventricular systolic function. The estimated ejection fraction is 60-65%. Abnormal left ventricular diastolic filling is observed, consistent with impaired relaxation. Left Atrium: The left atrium is moderately dilated. Right Ventricle: The right ventricle wall thickness is mildly increased. The right ventricular cavity size is normal. The right ventricular global systolic function is normal. Right Atrium: The right atrium is mildly dilated. Aortic Valve: The aortic valve structure is not well visualized. The aortic valve leaflets are mildly thickened. There is no evidence of aortic regurgitation. There is no evidence of aortic stenosis. Mitral Valve: Severe mitral annular calcification present. The mitral valve leaflets are mildly thickened. There is moderate mitral regurgitation. There is borderline mitral stenosis. The mean gradient across the mitral valve is 5 mmHg. The mitral valve area, by pressure half time, is calculated at 2.6 cm2. Tricuspid Valve: The tricuspid valve leaflets are normal. There is moderate tricuspid regurgitation. There is evidence of moderate to severe pulmonary hypertension. There is no tricuspid stenosis. Pulmonic Valve: The pulmonic valve structure is not well visualized. There is a trace pulmonic regurgitation. There is no pulmonic stenosis. Pericardium: There is no significant pericardial effusion. A pericardial fat pad is visualized. Aorta: There is no dilatation of the ascending aorta. The aortic arch is not well visualized. There is no dilation of the aortic root. Pulmonary Artery: The main pulmonary artery is not well visualized. Venous: The inferior vena cava appears normal in size. There is a greater than 50% respiratory change in the inferior vena cava dimension. Conclusions Moderate concentric left ventricular hypertrophy is observed. Global left ventricular wall motion and contractility are within normal limits. There is normal left ventricular systolic function. The estimated ejection fraction is 60-65%. The right ventricular global systolic function is normal. There is no evidence of aortic stenosis. Severe mitral annular calcification present. There is moderate mitral regurgitation. There is moderate tricuspid regurgitation. There is evidence of moderate to severe pulmonary hypertension. There is no significant pericardial effusion. Compared to study of 10/31/15, the LV function is the saem. The degreee of MR and TR are worse. The PASP has increased from 40 to now 65 mmHg Measurements Name Value Normal Range RVDdMajor (2D) 3.3 cm (2.2 - 4.4) RVAW (2D) 0.7 cm (0.2 - 0.5) RAd ISD 4CH 5.1 cm (3.4 - 4.9) RA (A4C)W 3.6 cm (2.9 - 4.6) IVSd (2D) 1.3 cm (0.6 - 1) LVPWd (2D) 1.3 cm (0.6 - 1) LVIDd (2D) 4.7 cm (3.6 - 5.4) LVIDs (2D) 3.2 cm - LV FS (2D) 32 % (25 - 45) Aortic Annulus 2 cm (1.4 - 2.6) Ao root diameter (2D) 2.6 cm (2.1 - 3.5) Ascending Ao 3.1 cm (2.1 - 3.4) LA dimension (AP) 2D 4.4 cm (2.3 - 3.8) LAd ISD 4CH 6.7 cm (2.9 - 5.3) LA ISD 4CH W 4.7 cm (2.5 - 4.5) Name Value Normal Range LA ESV BP (A/L) index 41.3 ml/m2 - Name Value Normal Range MV E-wave Vmax 1.9 m/sec - MV deceleration time 229 msec - LV septal e' Vmax 0.07 m/sec - LV lateral e' Vmax 0.05 m/sec - LV E:e' septal ratio 27 ratio - LV E:e' lateral ratio 38 ratio - Name Value Normal Range AV Vmax 1.5 m/sec - AV VTI 31 cm - AV peak gradient 9 mmHg - AV mean gradient 6 mmHg - LVOT Vmax 1.1 m/sec - LVOT VTI 20.5 cm - LVOT peak gradient 5 mmHg - LVOT mean gradient 3 mmHg - Name Value Normal Range MV Vmax 1.9 m/sec - MV VTI 40.4 cm - MV peak gradient 15 mmHg - MV mean gradient 5 mmHg - MV PHT 85 msec - MR Vmax 5.46 m/sec - MR VTI 150 cm - MR volume (PISA) 44 ml - MR flow (PISA) 156.8 ml/sec - MR ERO 0.29 cm2 - MR PISA radius 0.9 cm - MR alias Vmax 30.8 cm/sec - MVA (PHT) 2.6 cm2 - MVA (continuity VTI) 2.6 cm2 - Name Value Normal Range TR Vmax 4 m/sec - TR peak gradient 64 mmHg - RAP 3 mmHg - RVSP 67 mmHg - IVC diameter 1.9 cm - Name Value Normal Range PV Vmax 0.91 m/sec -
[2018-11-17] MEDS ORDERED: fentaNYL* 50 MCG/ML 2 ML VIAL (100 MCG VIAL) ONE (13:06)
[2018-11-17] MEDS ORDERED: Midazolam* 1 MG/ML 10 ML VIAL (10 MG) ONE (13:06)
--- NOTE | 2018-11-17 15:27 | PRO ---
CC: Dr. Ricci * DATE OF PROCEDURE: 11/17/2018 - ROOM #[id number] PROCEDURE PERFORMED: EGD. INDICATION: Nausea and vomiting. REFERRING PHYSICIAN: Dr. Ricci. MEDICATIONS GIVEN: 25 mcg IV Fentanyl and 5 mg IV Versed. PROCEDURE: After the EGD procedure, including the risks, benefits, and alternatives, not limited to perforation, surgery and/or were explained to the patient, written consent was then obtained. IV medication was given and a bite- block was placed between the teeth. An Olympus gastroscope was then inserted into the patient's mouth, advanced down the esophagus, into the stomach and into the distal duodenum. In the esophagus at the GE junction, she does have erosive esophagitis. This did extend part way up the esophagus. No discrete ulcers were seen suggestive of viral effect. I did take a biopsy. The scope was advanced through the GE junction and into the body of the stomach. Retroflex view was unremarkable. Forward view did reveal a few small ulcers. A biopsy was obtained for H. pylori. The scope was advanced through a widely patent pylorus, into the duodenal bulb, and into the distal duodenum, both of which were unremarkable. The scope was withdrawn from the patient. She tolerated the procedure well and was returned to her hospital room in stable condition. IMPRESSION: 1. Complete upper endoscopy into the duodenum. 2. Erosive esophagitis and gastric ulcers. 3. I would like her to continue on the b.i.d. PPI. We should add in Carafate. I did write this for her. Hopefully, she will be feeling better in the next few days. [id number]/[facility] #: [id number] [facility]
--- NOTE | 2018-11-17 17:16 | PN ---
Progress Note - Progress Note Date of Service: 11/17/18 SOAP: Subjective: []Better, nausea improved. Just had EGD Acetaminophen (Tylenol Tab*) 650 mg PO Q6H PRN PRN Reason: HEADACHE/PAIN Last Admin: 11/15/18 15:15 Dose: 650 mg Albuterol (Ventolin Hfa Inhaler*) 2 puff INH Q4H PRN PRN Reason: SHORTNESS OF BREATH Albuterol (Ventolin 2.5 Mg/3 Ml Neb.Angelica*) 2.5 mg INH Q4H PRN PRN Reason: SOB/WHEEZING Enoxaparin Sodium (Lovenox(*)) 40 mg SUBCUT Q24H [facility] Last Admin: 11/17/18 00:09 Dose: 40 mg Gabapentin (Neurontin Cap(*)) 100 mg PO TID [facility] Last Admin: 11/17/18 13:10 Dose: Not Given Insulin Human Regular (Insulin Regular(*)) 0 units SUBCUT Q6HR [facility]; Protocol Last Admin: 11/17/18 13:06 Dose: 2 unit Lorazepam (Ativan Inj*) 0.5 mg IV PUSH Q6H PRN PRN Reason: nausea Metoclopramide HCl (Reglan Iv*) 10 mg IV Q6H PRN PRN Reason: NAUSEA/VOMITING Metoprolol Tartrate (Lopressor Tab*) 25 mg PO BID [facility] Last Admin: 11/17/18 09:52 Dose: 25 mg Morphine Sulfate (Morphine Vial*) 1 mg IV Q6H PRN PRN Reason: PAIN Ondansetron HCl (Zofran Inj*) 4 mg IV Q6H PRN PRN Reason: NAUSEA Last Admin: 11/16/18 13:14 Dose: 4 mg Pantoprazole Sodium (Protonix Iv*) 40 mg IV Q24H [facility] Last Admin: 11/17/18 00:09 Dose: 40 mg Prochlorperazine Edisylate (Compazine Inj*) 10 mg IV Q6H PRN PRN Reason: NAUSEA/VOMITING Last Admin: 11/14/18 19:31 Dose: 10 mg Prochlorperazine Edisylate (Compazine Inj*) 10 mg IM Q6H PRN PRN Reason: nausea Sucralfate (Sucralfate Susp) 1 gm PO QID [facility] Carbo/Taxol 11/11/18 Objective: [] Vital Signs Temp Pulse Resp BP Pulse Ox 98.0 F 80 12 121/77 100 11/17/18 15:11 11/17/18 15:11 11/17/18 15:11 11/17/18 15:11 11/17/18 15:11 HEENT - no oral lesions CTA RRR S1s2 Abd - healed, +BS, non tender Ext w/o edema EGD - erosive esophogitis. 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 Presents with intractable nausea and vomiting after cycle 1 of chemotherapy. EGD with erosive esophogitis. I suspect Dex with chemotherapy triggered symptoms. Plan: []1. BID PPI and Sucrafate 2. Challenge PO tomorrow and should be able to be discharged. 3. Should be able to complete chemotherapy on PPI. Can consider Abraxane to avoid Dex on subsequent cycles. 4. Check labs in am.
[2018-11-17] MEDS: Sucralfate SUSP 1 GM/10 ml 10 ML UDC PO SCH ×2 (17:53→22:01)
[2018-11-18] MEDS: Insulin REGULAR(*) 1 UNITS UNIT SUBCUT SCH ×2 (05:50→12:35)
[2018-11-18 07:09] LABS: Hematocrit 33 % (35-47); Hemoglobin 11.2 g/dl (12.0-16.0); Mean Corpuscular HGB Conc 34 g/dl (31-36); Mean Corpuscular Hemoglobin 30 pg (27-31); Mean Corpuscular Volume 87 fL (80-97); Mean Platelet Volume 8.8 fL (7.4-10.4); Platelet Count 150 10^3/ul (150-450); Red Cell Distribution Width 16 % (10.5-15); White Blood Count 1.1 10^3/ul (3.5-10.8)
[2018-11-18 07:10] LABS: EGFR Non-African American 67.8 (>60)
[2018-11-18 07:27] VITALS: BP 105/87
[2018-11-18] MEDS: Sucralfate SUSP 1 GM/10 ml 10 ML UDC PO SCH (09:52)
[2018-11-18] MEDS: Metoprolol Tartrate TAB* 25 MG PO SCH (09:52)
[2018-11-18] MEDS: Gabapentin CAP(*) 100 MG PO SCH (09:52)
[2018-11-18] MEDS ORDERED: Loperamide CAP* 2 MG PO ONE (10:06)
--- NOTE | 2018-11-18 14:10 | DS ---
CC: Dr. Briggs; Dr. Azael Martin * DISCHARGE SUMMARY: DATE OF ADMISSION: 11/14/18 DATE OF DISCHARGE: 11/18/18 PRIMARY CARE PROVIDER: Dr. Briggs. PRIMARY ONCOLOGIST: Dr. Martin. CONSULTING BARROW WORKER HELPER: Dr. Hood. ATTENDING PHYSICIAN: Dr. Jesse Ricci.* (DICTATED BY ETHEL BARR) DISCHARGING PROVIDER: ETHEL Barr. PRIMARY DISCHARGE DIAGNOSES: 1. Erosive esophagitis and gastric ulcerations with intractable nausea and vomiting. 2. Insulin-dependent diabetes. 3. 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 DISCHARGE MEDICATIONS: 1. Albuterol inhaler 2 puffs inhaled q.4 hours as needed for shortness of breath. 2. Aspirin 81 mg p.o. daily. 3. Atorvastatin 40 mg p.o. daily. 4. Gabapentin 100 mg p.o. 3 times daily. 5. Lantus 60 units subcu twice daily. 6. Humalog 30 units subcu twice daily with breakfast and dinner. 7. Magnesium oxide 400 mg p.o. twice daily. 8. Metoprolol tartrate 25 mg p.o. twice daily. 9. Zofran 4 mg p.o. 3 times daily as needed for nausea and vomiting. 10. Potassium chloride 20 mEq p.o. daily. 11. Compazine 10 mg p.o. q.6 hours as needed for nausea and vomiting. 12. Ramipril 10 mg p.o. at bedtime. 13. Spironolactone 25 mg p.o. daily. 14. Torsemide 10 mg p.o. daily. 15. Percocet 5/325 one tablet p.o. q.6 hours as needed for pain. 16. Protonix 20 mg p.o. twice daily. 17. Sucralfate 1 g p.o. at mealtime and before bed. Medication changes: 1. Replace omeprazole with pantoprazole twice daily as listed above. 2. Start sucralfate. 3. Start Percocet. HOSPITAL IMAGING: Chest x-ray 11/14/18, shows pulmonary interstitial edema. CT abdomen and pelvis shows minimal right-sided pleural effusion and slight wall thickening of the distal esophagus, which has increased since May 2018. There is wall thickening of the pylorus and first and second portions of the duodenum with slight surrounding induration which is new since prior study. Fatty infiltration of the liver and status post hysterectomy. Abdominal ultrasound 11/15/18, shows hepatomegaly with fatty infiltration, a 4 mm gallbladder wall polyp. Upper endoscopy demonstrates erosive esophagitis and gastric ulcerations without active bleeding. HOSPITAL COURSE: This is a 63-year-old female with a high grade uterine sarcoma , recently started adjuvant chemotherapy with her first cycle of carboplatin and Taxol on 11/11/18. She was hospitalized overnight on the day of her first therapy due to dyspnea and hypoxia that was thought to be secondary to fluid overload but she did have mild hypersensitivity reaction to her initial infusion. Her symptoms resolved without incident and she was subsequently discharged home. The patient was subsequently rehospitalized several days later with complaints of intractable nausea and vomiting. She later complained that she felt as if food was getting stuck on its way down which was initiating her vomiting. She underwent upper endoscopy with Dr. Beltrán which demonstrated erosive esophagitis and gastric ulcerations. The patient was subsequently treated with IV Protonix and started on sucralfate with significant symptomatic improvement. Also of note, during her hospitalization, the patient had severe lower extremity pain that lasted approximately 2 days which was likely associated with her Taxol therapy. She was prescribed Percocet as listed above for episodes of severe arthralgias with subsequent cycles. DISPOSITION AND FOLLOWUP PLAN: The patient is being discharged to home with medications as listed above. She is to continue b.i.d. PPI therapy and sucralfate. She has followup scheduled for tomorrow 11/19/18 with nurse practitioner Marian Saeed, which she is instructed to keep. ETHEL BARR [id number]/[facility] #: [id number] [facility]
== END 2018-11-18 13:40 | disposition home or self-care (01) | DRG 381 ==
LOC: ED 16:18 → MED 22:09 → OBSVTOIN 11-15 13:36
PROVIDERS: ADMIT Internal Medicine; ATTEND Internal Medicine Hematology & Oncology
PROC: 0DD38ZX Extraction of Lower Esophagus, Via Natural or Artificial Opening Endoscopic, Diagnostic (ICD-10-PCS; principal; 2018-11-17)
PROC: 0DD68ZX Extraction of Stomach, Via Natural or Artificial Opening Endoscopic, Diagnostic (ICD-10-PCS; 2018-11-17)
DX: K22.10 Ulcer of esophagus without bleeding (principal); Z68.41 Body mass index [BMI] 40.0-44.9, adult; I69.354 Hemiplegia and hemiparesis following cerebral infarction affecting left non-dominant side; R17 Unspecified jaundice; K25.9 Gastric ulcer, unspecified as acute or chronic, without hemorrhage or perforation; I27.20 Pulmonary hypertension, unspecified; E11.42 Type 2 diabetes mellitus with diabetic polyneuropathy; E11.65 Type 2 diabetes mellitus with hyperglycemia; E66.01 Morbid (severe) obesity due to excess calories; I08.1 Rheumatic disorders of both mitral and tricuspid valves; C55 Malignant neoplasm of uterus, part unspecified; J44.9 Chronic obstructive pulmonary disease, unspecified; G47.33 Obstructive sleep apnea (adult) (pediatric); R10.31 Right lower quadrant pain; I10 Essential (primary) hypertension; M79.605 Pain in left leg; M79.604 Pain in right leg; T45.1X5A Adverse effect of antineoplastic and immunosuppressive drugs, initial encounter; Y92.230 Patient room in hospital as the place of occurrence of the external cause; Z87.891 Personal history of nicotine dependence; Z79.4 Long term (current) use of insulin; Z83.3 Family history of diabetes mellitus; Z82.49 Family history of ischemic heart disease and other diseases of the circulatory system; Z79.51 Long term (current) use of inhaled steroids; Z79.899 Other long term (current) drug therapy
CPT/HCPCS: 36415; 71045; 74177; 76705; 80048; 80053; 80076; 81003; 81015; 82607; 83036; 83605; 83690; 83735; 83880; 84100; 85025; 85027; 87077; 87086; 88305; 93005; 93306; 99156; 99157; 99232; 99239; 99284; A9270-GY; J0780; J1100; J1650; J2060; J2250; J2405; J3010; J3490; Q9967

== ENCOUNTER 2020-07-04 11:00 | Observation (INO) ==
[2020-07-04 13:54] LABS: ABS Basophils 0.1 10^3/ul (0-0.2); ABS Eosinophils 0.1 10^3/ul (0-0.6); ABS Lymphocytes 1.5 10^3/ul (1.0-4.8); ABS Monocytes 0.8 10^3/ul (0-0.8); ABS Neutrophils 7.5 10^3/ul (1.5-7.7); Eosinophil % 1.1 %; Hematocrit 36 % (35-47); Hemoglobin 11.7 g/dL (12.0-16.0); Lymphocyte % 14.6 %; Mean Corpuscular HGB Conc 33 g/dL (31-36); Mean Corpuscular Hemoglobin 28 pg (27-31); Mean Corpuscular Volume 86 fL (80-97); Platelet Count 327 10^3/uL (150-450); Red Blood Count 4.16 10^6 /uL (3.70-4.87); Red Cell Distribution Width 16 % (10-15)
[2020-07-04 14:19] LABS: Albumin 3.6 g/dL (3.2-5.2); BUN/Creatinine Ratio 13.8 (8-20); C Reactive Protein 17.3 mg/L (<8.01); Calcium 8.9 mg/dL (8.6-10.3); EGFR African American 39.6 (>60); EGFR Non-African American 32.7 (>60); Globulin 3.5 g/dL (2-4); Potassium 3.8 mmol/L (3.5-5.0); Total Bilirubin 1.9 mg/dL (0.2-1.0); Total Protein 7.1 g/dL (6.4-8.9)
[2020-07-04] MEDS ORDERED: Furosemide 40 mg/4 ml IV VIAL IV SLOW PU ONE (14:48)
[2020-07-04] MEDS ORDERED: Dextrose 50% Syringe 50 ml 25 GM/50 ML SYRINGE IV PUSH PRN (16:39)
[2020-07-04] MEDS ORDERED: Metoprolol Tartrate 5 mg VIAL 5 ml VIAL (1 mg/ml) IV PRN (16:43)
[2020-07-04] MEDS: Furosemide 40 mg/4 ml IV VIAL IV SLOW PU SCH (19:20)
[2020-07-04] MEDS ORDERED: Bumetanide IV 0.25 MG/ML 4 ml VIAL (1 mg) SLOW PUSH SCH (21:00)
[2020-07-04] MEDS: Insulin GLARGINE 100 un/ml 10 ml VIAL SUBCUT SCH (22:16)
[2020-07-05 06:44] LABS: ABS Eosinophils 0.2 10^3/ul (0-0.6); ABS Lymphocytes 1.6 10^3/ul (1.0-4.8); ABS Monocytes 0.9 10^3/ul (0-0.8); ABS Neutrophils 6.4 10^3/ul (1.5-7.7); Eosinophil % 2.3 %; Hematocrit 34 % (35-47); Hemoglobin 11.7 g/dL (12.0-16.0); Lymphocyte % 17.6 %; Mean Corpuscular HGB Conc 34 g/dL (31-36); Mean Corpuscular Hemoglobin 29 pg (27-31); Mean Corpuscular Volume 84 fL (80-97); Mean Platelet Volume 9.1 fL (7.4-10.4); Platelet Count 341 10^3/uL (150-450); Red Blood Count 4.12 10^6 /uL (3.70-4.87); Red Cell Distribution Width 16 % (10-15); White Blood Count 9.2 10^3/uL (3.5-10.8)
[2020-07-05 06:59] LABS: BUN/Creatinine Ratio 15.1 (8-20); Calcium 8.3 mg/dL (8.6-10.3); EGFR African American 41.7 (>60); EGFR Non-African American 34.4 (>60); Potassium 3.4 mmol/L (3.5-5.0)
[2020-07-05] MEDS: Furosemide 40 mg/4 ml IV VIAL IV SLOW PU SCH (08:03)
[2020-07-05] MEDS: Potassium Chlor 10 meq TAB PO SCH ×2 (08:04→08:36)
[2020-07-05] MEDS: Insulin GLARGINE 100 un/ml 10 ml VIAL SUBCUT SCH (08:05)
[2020-07-05 08:20] LABS: Magnesium 1.8 mg/dL (1.9-2.7)
[2020-07-05] MEDS ORDERED: fentaNYL 100 mcg/2 ml 50 MCG/ML VIAL ONE (08:46)
[2020-07-05] MEDS ORDERED: Naloxone 0.4 mg VIAL 0.4 mg/ml 1 ml VIAL ONE (08:46)
[2020-07-05] MEDS ORDERED: Flumazenil 0.5 mg/5 ml 0.1 MG/ML 5 ml VIAL ONE (08:46)
[2020-07-05] MEDS ORDERED: Midazolam 5 mg/5 ml VIAL 1 mg/ml 5 ml VIAL (5 mg) ONE (08:46)
[2020-07-05 08:48] LABS: TSH Ultra Thyroid Stim Horm 3.78 mcIU/mL (0.34-5.60)
[2020-07-05 08:50] LABS: Free T4 1.11 ng/dL (0.61-1.12)
[2020-07-05] MEDS ORDERED: Nystatin TOP POWDER 15 GM BTL TOPICAL SCH (09:00)
[2020-07-05 10:26] VITALS: BP 110/84
[2020-07-05] MEDS ORDERED: Insulin GLARGINE 100 un/ml 10 ml VIAL SUBCUT SCH (21:00)
[2020-07-06] MEDS ORDERED: NF:DAPAGLIFLOZIN 10 MG TAB (NF) PO SCH (09:00)
== END 2020-07-05 14:30 | disposition home or self-care (01) ==
LOC: ED 11:00 → INTOOBSV 16:36 → MEDTELE 16:36
PROVIDERS: ADMIT Internal Medicine; ATTEND Internal Medicine

== ENCOUNTER 2021-09-29 06:40 | Observation (INO) ==
[~2021-09-29 06:40] MED LIST: Buffered Lidocaine 1% SYRIN 1 ml INTRADERM ONE; Lactated Ringers 1000 ml BAG 1,000 ML IV SCH
[2021-09-29] MEDS ORDERED: ceFAZolin 2 GM in NS PREMIX 2 GM/100 ML BAG IVPB ONE (07:23)
[2021-09-29] MEDS ORDERED: Rocuronium 50 mg VIAL 10 mg/ml 5 ml VIAL (50 mg) ONE ×2 (08:07→11:47)
[2021-09-29] MEDS ORDERED: fentaNYL 100 mcg/2 ml 50 MCG/ML VIAL ONE (08:07)
[2021-09-29] MEDS ORDERED: Midazolam 2 mg/2 ml VIAL 1 mg/ml 2 ml VIAL (2 mg) ONE (08:08)
[2021-09-29] MEDS ORDERED: Lidocaine 1% w EPI 1:100,000 MDV 20 ML VIAL ONE (08:11)
[2021-09-29] MEDS ORDERED: Propofol 10 MG/ML 20 ML BTL ONE (08:11)
[2021-09-29] MEDS ORDERED: Lidocaine 2% PF 5 ML VIAL ONE (08:12)
[2021-09-29] MEDS ORDERED: ceFOXitin 1 GM VIAL ONE (08:18)
[2021-09-29] MEDS ORDERED: ceFAZolin 1 GM ADVAN 1 GM ADDV.VIAL IVPB ONE (08:19)
[2021-09-29] MEDS ORDERED: ceFAZolin VIAL VIAL ONE (08:22)
[2021-09-29] MEDS ORDERED: Dexamethasone IV 4 MG/ML VIAL 1 ml VIAL ONE ×2 (08:49→11:46)
[2021-09-29] MEDS ORDERED: Bupivacaine 0.5% SDV PF 30ML VIAL ONE (08:49)
[2021-09-29] MEDS ORDERED: Phenylephrine IV 10 MG/ML 1 ml VIAL ONE (09:33)
[2021-09-29] MEDS ORDERED: Sugammadex 500 MG/5 ML 5 ml VIAL IV PUSH ONE (11:46)
[2021-09-29] MEDS ORDERED: Ondansetron 4 mg VIAL 2 MG/ML 2 ml VIAL ONE (11:46)
[2021-09-29] MEDS ORDERED: Naloxone 0.4 mg VIAL 0.4 mg/ml 1 ml VIAL IV PRN (12:09)
[2021-09-29] MEDS ORDERED: HYDROmorphone 1 MG/1 ML SYRINGE IV PRN (12:09)
[2021-09-29] MEDS ORDERED: Ondansetron 4 mg VIAL 2 MG/ML 2 ml VIAL IV PRN ×2 (12:09→13:35)
[2021-09-29] MEDS ORDERED: diPHENhydraMINE IV 50 MG/ML 1 ml VIAL (BENADRYL) IV PRN (13:35)
[2021-09-29] MEDS ORDERED: diPHENhydraMINE 25 mg TAB PO PRN (13:35)
[2021-09-29] MEDS ORDERED: Lactulose 30 ml UDC PO PRN (13:35)
[2021-09-29] MEDS ORDERED: Ondansetron ODT 4 mg TAB 4 MG TAB PO PRN (13:35)
[2021-09-29] MEDS ORDERED: Magnesium Hydroxide LIQ 30 ML UDC PO PRN (13:35)
[2021-09-29] MEDS ORDERED: Morphine 2 MG/ML SYRINGE IV PRN (13:35)
[2021-09-29] MEDS ORDERED: Albuterol HFA INHALER 8 gm MDI INH PRN (13:48)
[2021-09-29] MEDS ORDERED: Dextrose 50% Syringe 50 ml 25 GM/50 ML SYRINGE IV PUSH PRN ×2 (13:48→23:18)
[2021-09-29] MEDS ORDERED: INSULIN REGULAR HUM U SUBCUT SCH ×2 (14:00→21:00)
[2021-09-29] MEDS ORDERED: ceFAZolin 1 GM ADVAN 1 GM in NS 0.9% 50 ML 50 ML IVPB SCH (14:00)
[2021-09-29] MEDS: Lactated Ringers 1000 ml BAG 1,000 ML IV SCH (16:15)
[2021-09-29] MEDS: ceFAZolin 1 GM ADVAN 1 GM in NS 0.9% 50 ML 50 ML IVPB SCH (18:09)
[2021-09-29] MEDS: Magnesium Hydroxide LIQ 30 ML UDC PO SCH (21:09)
[2021-09-29] MEDS: Insulin GLARGINE 100 un/ml 10 ml VIAL SUBCUT SCH (22:49)
[2021-09-29] MEDS: Nystatin TOP POWDER 15 GM BTL TOPICAL SCH (23:36)
[2021-09-29] MEDS: Latanoprost 0.005% 2.5 ml BTL BOTH EYES SCH (23:37)
[2021-09-30] MEDS: ceFAZolin 1 GM ADVAN 1 GM in NS 0.9% 50 ML 50 ML IVPB SCH ×2 (02:55→10:13)
[2021-09-30] MEDS: Lactated Ringers 1000 ml BAG 1,000 ML IV SCH (04:55)
[2021-09-30 06:56] LABS: Calcium 8.6 mg/dL (8.6-10.3); Potassium 5.2 mmol/L (3.5-5.0)
[2021-09-30] MEDS: Nystatin TOP POWDER 15 GM BTL TOPICAL SCH ×2 (08:37→20:48)
[2021-09-30] MEDS: Magnesium Hydroxide LIQ 30 ML UDC PO SCH ×3 (08:37→20:44)
[2021-09-30] MEDS: Vitamin THERAPEUTIC TAB PO SCH (08:37)
[2021-09-30] MEDS: DAPAGLIFLOZIN 5 MG PO SCH (08:48)
[2021-09-30] MEDS ORDERED: INSULIN REGULAR HUM U SUBCUT SCH (09:00)
[2021-09-30 09:14] LABS: Hematocrit 30 % (35-47); Hemoglobin 9.6 g/dL (12.0-16.0); Mean Platelet Volume 8.3 fL (7.4-10.4); Platelet Count 359 10^3/uL (150-450)
[2021-09-30 11:44] LABS: Glucose Confirmatory 431 mg/dL (70-100)
[2021-09-30] MEDS: Latanoprost 0.005% 2.5 ml BTL BOTH EYES SCH (18:06)
[2021-09-30] MEDS: Insulin GLARGINE 100 un/ml 10 ml VIAL SUBCUT SCH (22:09)
[2021-10-01 07:51] LABS: Hematocrit 31 % (35-47); Hemoglobin 9.9 g/dL (12.0-16.0); Mean Platelet Volume 7.9 fL (7.4-10.4); Platelet Count 430 10^3/uL (150-450)
[2021-10-01] MEDS ORDERED: Insulin GLARGINE 100 un/ml 10 ml VIAL SUBCUT SCH (09:00)
[2021-10-01] MEDS: Nystatin TOP POWDER 15 GM BTL TOPICAL SCH (09:41)
[2021-10-01] MEDS: Magnesium Hydroxide LIQ 30 ML UDC PO SCH (09:43)
[2021-10-01] MEDS: DAPAGLIFLOZIN 5 MG PO SCH (09:43)
[2021-10-01] MEDS: Vitamin THERAPEUTIC TAB PO SCH (09:44)
[2021-10-01 11:35] VITALS: BP 119/55
== END 2021-10-01 12:37 | disposition home or self-care (01) ==
LOC: SSU 06:40 → OR 06:40
PROVIDERS: ADMIT Orthopaedic Surgery Sports Medicine; ATTEND Orthopaedic Surgery Sports Medicine

== ENCOUNTER 2023-06-03 11:33 | Inpatient (IN) ==
[2023-06-03] MEDS ORDERED: NS 0.9% 1000 ml BAG 1,000 ML IV ONE (11:41)
[2023-06-03 12:18] LABS: Hematocrit 33.9 % (35-45); Hemoglobin 10.8 g/dL (11.5-14.3); Mean Corpuscular Hemoglobin 26.1 pg (27-33); Mean Corpuscular Hgb Conc 31.9 g/dL (31-36); Mean Corpuscular Volume 81.9 fL (80-97); Mean Platelet Volume 8.6 fL (7.5-11.2); Platelet Count 212 10^3/uL (150-450); Red Blood Count 4.14 10^6/uL (3.63-4.92); Red Cell Distribution Width 23.3 % (12-17); White Blood Count 7.7 10^3/uL (3.8-11.8)
[2023-06-03 12:24] LABS: INR 2.29 (0.88-1.18)
[2023-06-03 12:40] LABS: Albumin 3.7 g/dL (3.2-5.2); Albumin/Globulin Ratio 0.7 (1-3); Calcium 8.9 mg/dL (8.6-10.3); Creatinine, Serum 2.61 mg/dL (0.51-0.95); Globulin 5.4 g/dL (2-4); Potassium 4.6 mmol/L (3.5-5.0); Total Bilirubin 2.5 mg/dL (0.2-1.0); Total Protein 9.1 g/dL (6.4-8.9); eGFR CKD-EPI 19.5 (>60)
[2023-06-03 13:28] LABS: ABS Basophils 0.1 10^3/uL (0.0-0.1); ABS Eosinophils 0.1 10^3/uL (0.0-0.5); ABS Lymphocytes 0.4 10^3/uL (1.0-4.8); ABS Monocytes 0.7 10^3/uL (0.0-0.9); ABS Neutrophils 6.4 10^3/uL (1.5-7.6); Eosinophil % 1.5 %; Lymphocyte % 5.6 %; Nucleated Red Blood Cells % 0.1 /100 WBC (0.0-0.4)
[2023-06-03] MEDS ORDERED: NORMOSOL-R pH 7.4 1000 mL BAG 1,000 ML IV ONE (13:31)
[2023-06-03] MEDS ORDERED: Dextrose 50% Syringe 50 ml 25 GM/50 ML SYRINGE IV PUSH PRN (13:31)
[2023-06-03 13:45] LABS: High Sensitivity Troponin 1 Hr 13 pg/mL (<15)
[2023-06-03 13:55] LABS: PCO2 Arterial 32 mmHg (35-45); PO2 Arterial 68 mmHg (80-100)
[2023-06-03] MEDS ORDERED: Insulin Infusion 100unit/100mL 100 UNIT/100 ML BAG IV SCH ×2 (14:00→16:02)
[2023-06-03 14:36] LABS: ABS Basophils 0.1 10^3/uL (0.0-0.1); ABS Eosinophils 0.1 10^3/uL (0.0-0.5); ABS Lymphocytes 0.5 10^3/uL (1.0-4.8); ABS Monocytes 0.7 10^3/uL (0.0-0.9); ABS Neutrophils 6.2 10^3/uL (1.5-7.6); ABS Nucleated RBC 0.01 10^3/ul; Hematocrit 32.8 % (35-45); Hemoglobin 10.3 g/dL (11.5-14.3); Lymphocyte % 6.4 %; Mean Corpuscular Hemoglobin 25.5 pg (27-33); Mean Corpuscular Hgb Conc 31.5 g/dL (31-36); Mean Corpuscular Volume 80.9 fL (80-97); Mean Platelet Volume 8.5 fL (7.5-11.2); Nucleated Red Blood Cells % 0.2 /100 WBC (0.0-0.4); Platelet Count 225 10^3/uL (150-450); Red Blood Count 4.05 10^6/uL (3.63-4.92); Red Cell Distribution Width 23.2 % (12-17); White Blood Count 7.6 10^3/uL (3.8-11.8)
[2023-06-03 14:38] LABS: Urine Appearance Clear; Urine Bilirubin Negative (Negative); Urine Blood 1+ (Negative); Urine Color Straw; Urine Glucose 3+(>=500 mg/dL) (Negative); Urine Ketones Negative (Negative); Urine Nitrite Negative (Negative); Urine Protein 1+(30 mg/dL) (Negative); Urine Specific Gravity 1.011 (1.002-1.030); Urine Urobilinogen Negative (Negative)
[2023-06-03 14:47] LABS: Urine Bacteria Absent (Absent); Urine Red Blood Cell 1+(3-5/hpf) (Absent); Urine Squamous Epithelial Cell Present (Absent); Urine White Blood Cell 3+(>20/hpf) (Absent)
[2023-06-03 14:51] LABS: Albumin 3.8 g/dL (3.2-5.2); Albumin/Globulin Ratio 0.7 (1-3); Creatinine, Serum 2.67 mg/dL (0.51-0.95); Globulin 5.7 g/dL (2-4); High Sensitivity Troponin 1 Hr 13 pg/mL (<15); Magnesium 2.3 mg/dL (1.9-2.7); Phosphorus 3.8 mg/dL (2.5-5.0); Potassium 4.3 mmol/L (3.5-5.0); Total Bilirubin 2.5 mg/dL (0.2-1.0); Total Protein 9.5 g/dL (6.4-8.9)
[2023-06-03] MEDS ORDERED: NORMOSOL-R pH 7.4 1000 mL BAG 1,000 ML IV SCH (15:00)
[2023-06-03 15:18] LABS: TSH Ultra Thyroid Stim Horm 5.1 mcIU/mL (0.34-5.60)
[2023-06-03 17:33] LABS: Calcium 9.1 mg/dL (8.6-10.3); Magnesium 2.2 mg/dL (1.9-2.7); Potassium 3.7 mmol/L (3.5-5.0)
[2023-06-03 17:39] LABS: Creatinine, Serum 2.57 mg/dL (0.51-0.95); Phosphorus 3.4 mg/dL (2.5-5.0); eGFR CKD-EPI 19.9 (>60)
[2023-06-03 17:42] LABS: Glucose Confirmatory 428 mg/dL (70-100)
[2023-06-03] MEDS ORDERED: Lactated Ringers 1000 ml BAG 1,000 ML IV ONE (17:50)
[2023-06-03] MEDS: ceFAZolin 1 GM ADVAN 1 GM in NS 0.9% 50 ML 50 ML IVPB SCH (18:20)
[2023-06-03] MEDS: Nystatin TOP POWDER 15 GM BTL TOPICAL SCH ×2 (18:21→22:29)
[2023-06-03 21:02] LABS: Calcium 8.9 mg/dL (8.6-10.3); Magnesium 2.1 mg/dL (1.9-2.7); Potassium 3.6 mmol/L (3.5-5.0)
[2023-06-03 21:08] LABS: Creatinine, Serum 2.41 mg/dL (0.51-0.95); Phosphorus 3.4 mg/dL (2.5-5.0); eGFR CKD-EPI 21.5 (>60)
[2023-06-04 04:40] LABS: Hematocrit 29.6 % (35-45); Hemoglobin 9.8 g/dL (11.5-14.3); Mean Corpuscular Hemoglobin 25.8 pg (27-33); Mean Corpuscular Hgb Conc 33.2 g/dL (31-36); Mean Corpuscular Volume 77.7 fL (80-97); Platelet Count 213 10^3/uL (150-450); Red Cell Distribution Width 22.9 % (12-17); White Blood Count 6.6 10^3/uL (3.8-11.8)
[2023-06-04 04:53] LABS: Calcium 8.5 mg/dL (8.6-10.3); Creatinine, Serum 2.35 mg/dL (0.51-0.95); Magnesium 2.1 mg/dL (1.9-2.7); Phosphorus 3.3 mg/dL (2.5-5.0); Potassium 3.6 mmol/L (3.5-5.0); eGFR CKD-EPI 22.1 (>60)
[2023-06-04 04:59] LABS: ABS Basophils 0.1 10^3/uL (0.0-0.1); ABS Eosinophils 0.5 10^3/uL (0.0-0.5); ABS Lymphocytes 0.8 10^3/uL (1.0-4.8); ABS Monocytes 0.8 10^3/uL (0.0-0.9); ABS Neutrophils 4.5 10^3/uL (1.5-7.6); ABS Nucleated RBC 0.01 10^3/ul; Eosinophil % 6.9 %; Lymphocyte % 11.8 %; Nucleated Red Blood Cells % 0.1 /100 WBC (0.0-0.4)
[2023-06-04] MEDS: ceFAZolin 1 GM ADVAN 1 GM in NS 0.9% 50 ML 50 ML IVPB SCH ×2 (05:42→17:38)
[2023-06-04] MEDS: Nystatin TOP POWDER 15 GM BTL TOPICAL SCH ×3 (08:51→22:25)
[2023-06-04] MEDS ORDERED: Insulin GLARGINE 100 un/ml 10 ml VIAL SUBCUT SCH ×2 (09:00→21:00)
[2023-06-04 09:09] LABS: Urine Appearance Cloudy; Urine Bilirubin Negative (Negative); Urine Blood 1+ (Negative); Urine Color Yellow; Urine Glucose 3+(>=500 mg/dL) (Negative); Urine Ketones Trace (Negative); Urine Nitrite Negative (Negative); Urine Protein 2+(100 mg/dL) (Negative); Urine Specific Gravity 1.011 (1.002-1.030); Urine Urobilinogen Negative (Negative)
[2023-06-04 09:17] LABS: Urine Bacteria 1+ (Absent); Urine Red Blood Cell Trace(0-2/hpf) (Absent); Urine Squamous Epithelial Cell Present (Absent); Urine White Blood Cell 3+(>20/hpf) (Absent)
[2023-06-04] MEDS ORDERED: Potassium Chlor 20 meq TAB.ER PO ONE (09:25)
[2023-06-04 22:46] LABS: Glucose Confirmatory 420 mg/dL (70-100)
[2023-06-04] MEDS ORDERED: Dextrose 50% Syringe 50 ml 25 GM/50 ML SYRINGE IV PUSH PRN (23:38)
[2023-06-05] MEDS: ceFAZolin 1 GM ADVAN 1 GM in NS 0.9% 50 ML 50 ML IVPB SCH (05:31)
[2023-06-05 07:13] LABS: Calcium 8.4 mg/dL (8.6-10.3); Magnesium 2.1 mg/dL (1.9-2.7); Potassium 3.9 mmol/L (3.5-5.0)
[2023-06-05 07:19] LABS: Creatinine, Serum 2.26 mg/dL (0.51-0.95); eGFR CKD-EPI 23.2 (>60)
[2023-06-05] MEDS ORDERED: Insulin GLARGINE 100 un/ml 10 ml VIAL SUBCUT SCH (09:00)
[2023-06-05] MEDS: Nystatin TOP POWDER 15 GM BTL TOPICAL SCH ×3 (09:14→20:17)
[2023-06-05] MEDS: Potassium Chlor 10 meq TAB PO SCH (09:14)
[2023-06-05] MEDS: Insulin GLARGINE 100 un/ml 10 ml VIAL SUBCUT SCH (09:20)
[2023-06-05] MEDS ORDERED: cefTRIAXone 1 gm/50 mL NS BAG 1 GM/50 ML BAG IV SCH (09:30)
[2023-06-05 15:14] LABS: Ferritin 35.6 ng/mL (11-307)
[2023-06-06] MEDS: Potassium Chlor 10 meq TAB PO SCH (07:59)
[2023-06-06] MEDS: Nystatin TOP POWDER 15 GM BTL TOPICAL SCH (08:00)
[2023-06-06] MEDS: Insulin GLARGINE 100 un/ml 10 ml VIAL SUBCUT SCH (08:01)
[2023-06-06] MEDS ORDERED: Insulin GLARGINE 100 un/ml 10 ml VIAL SUBCUT ONE (09:16)
[2023-06-06] MEDS ORDERED: Insulin GLARGINE 100 un/ml 10 ml VIAL SUBCUT SCH (10:00)
[2023-06-06 10:20] LABS: ABS Basophils 0.1 10^3/uL (0.0-0.1); ABS Eosinophils 0.3 10^3/uL (0.0-0.5); ABS Lymphocytes 0.6 10^3/uL (1.0-4.8); ABS Monocytes 0.4 10^3/uL (0.0-0.9); ABS Nucleated RBC 0.01 10^3/ul; Eosinophil % 4.7 %; Hematocrit 33.1 % (35-45); Hemoglobin 10.8 g/dL (11.5-14.3); Lymphocyte % 9.4 %; Mean Corpuscular Hemoglobin 26.1 pg (27-33); Mean Corpuscular Hgb Conc 32.8 g/dL (31-36); Mean Corpuscular Volume 79.8 fL (80-97); Mean Platelet Volume 8.2 fL (7.5-11.2); Nucleated Red Blood Cells % 0.1 /100 WBC (0.0-0.4); Platelet Count 263 10^3/uL (150-450); Red Blood Count 4.15 10^6/uL (3.63-4.92); Red Cell Distribution Width 23.4 % (12-17); White Blood Count 6.3 10^3/uL (3.8-11.8)
[2023-06-06 10:44] LABS: Calcium 8.9 mg/dL (8.6-10.3); Creatinine, Serum 2.09 mg/dL (0.51-0.95); Magnesium 2.1 mg/dL (1.9-2.7); Potassium 4.2 mmol/L (3.5-5.0); eGFR CKD-EPI 25.5 (>60)
[2023-06-06] MEDS ORDERED: Iron Sucrose 200 MG in NS 0.9% 100 ml BAG 100 ML IVPB ONE (13:00)
[2023-06-06 13:45] VITALS: BP 119/72
== END 2023-06-06 15:49 | disposition home or self-care (01) | DRG 638 ==
LOC: ED 11:33 → SUATTDRO 15:13 → EDHOLD 15:13 → ICU 16:16 → MED 06-04 15:25
PROVIDERS: ADMIT Surgery Surgical Critical Care; ATTEND Internal Medicine